=== PATIENT | male | born 1940 | race African-American/Black ===

== ENCOUNTER 2017-01-17 12:51 | Inpatient (IN) | payer MEDICARE ==
[~2017-01-17 12:51] MED LIST: ISOVUE-370 76%-LOCM 1 ML ONE
[2017-01-17] MEDS ORDERED: Enoxaparin Sodium 80 MG/0.8 ML SYRINGE ONE (15:05)
[2017-01-17 15:30] LABS: Troponin I 3.877 ng/mL (< 0.028)
[2017-01-17] MEDS ORDERED: Labetalol HCl 100 MG/20 ML VIAL ONE (16:13)
--- NOTE | 2017-01-17 16:23 | CT ---
CTA OF THE THORAX UTILIZING IV CONTRAST PE PROTOCOL AND 3D REFORMATTED IMAGING 01/17/17 INDICATION: 76-year-old male transferred from [facility] for an elevated troponin at 4.83. The patient was i nitially presented to the outside facility with dizziness with a history of stroke and right sided we akness and dysarthria. COMPARISON: Prior CTA of the thorax dated 09/02/11 and CTA of the abdomen and pelvis dated 04/30/14. FINDINGS: There is scattered emphysema which appears similar. No confluent air space consolidation or pleural effusion is noted. No central or segmental pulmonary embolus is evident. There is some reflux of contrast within the hepatic veins. There is a dual lead pacemaker overlying the left chest wall. There is mural wall thickening involving the distal aortic arch and descending t horacic aorta which is similar in extent and appearance to a comparison on 08/23/11. There is stable bilateral renal cysts. Irregularity of the spleen likely related to prior remote sple jae infarct, similar appearing. There is scattered degenerative and osteoarthritic change. No definit e acute osseous abnormality is evident. IMPRESSION: 1. No central or segmental pulmonary embolus. 2. Wall thickening involving the distal thoracic aorta and descending thoracic aorta was present on a comparison in 2011 and may reflect mural wall thickening from atherosclerotic disease. The jeff ng of the contrast opacification, does not allow for thorough evaluation of the the lumen of the thor acic aorta. 3. Scattered emphysema. 4. Bilateral renal cysts. POS: [facility]
--- NOTE | 2017-01-17 16:49 | HP ---
PRIMARY CARE PHYSICIAN: Dr. Gates in [place]. REASON FOR ADMISSION: Transfer from [facility] for non-ST elevation HI. HISTORY OF PRESENT ILLNESS: A 76-year-old -[place] male who initially went to [facility] for complaint of dizziness, which was going on for the last 2 days. This pa tient is an extremely poor historian. He has previous history of CVA, which resulted in his hearing and speech impairment. He is not able to provide a good history. The patient was also having associ ated shortness of breath and cough. He was feeling weak. He is not complaining of any chest pain, a bdominal pain or complete loss of consciousness, focal motor or sensory symptoms. He did not have an y associated diaphoresis, nausea or vomiting. At this point, the history is also very limited because no family member present at bedside and shelley medrano is not able to provide further details, so most of the history is limited to emergency room record from [place] in our emergency room. REVIEW OF SYSTEMS: All review of systems tried to review with the patient, but unable to review at t his point because of his cognitive status. PAST MEDICAL HISTORY: Chronic congestive heart failure with ejection fraction 45-50%, hypertension, dyslipidemia, ischemic cardiomyopathy, history of ventricular tachycardia required AICD placement, co ronary artery disease with a history of HI in 1978, gastroesophageal reflux disease, history of left cerebrovascular accident with expressive aphasia, paroxysmal atrial fibrillation on chronic anticoagu lation with Xarelto, history of splenic and renal infarction, peripheral vascular disease, history of left lower extremity compartment syndrome required fistulectomy with thrombectomy for gangrene. PAST SURGICAL HISTORY: AICD placement in 2004, cardiac catheterization in 2002, history of prostate TURP surgery in 2004, which showed high grade intraepithelial neoplasm. PAST PSYCHIATRIC HISTORY: Reviewed and negative. SOCIAL HISTORY: Patient lives at home. His sister is caregiver and decision maker. No history of t obacco, alcohol or illicit drug abuse. ALLERGIES: No known drug allergies. FAMILY HISTORY: Positive for cerebrovascular accident to his mother and multiple other family member s, has diabetes, hypertension, and heart disease. CURRENT HOME MEDICATIONS: Coreg 25 mg twice daily, Protonix 40 mg p.o. daily, Zocor 40 mg p.o. twice daily, amlodipine with benazepril 10/20 one tablet p.o. daily, aspirin 81 mg p.o. daily, clonidine 0 .1 mg as needed basis and Xarelto 10 mg p.o. daily. EMERGENCY ROOM COURSE: Patient is given Lovenox 1 mg per kg. PHYSICAL EXAMINATION: VITAL SIGNS: Currently, blood pressure 169/109, pulse 67, respiratory rate 17, temperature 98.1, sat uration 86% on room air and then 94% on 2 liter oxygen. Weight 81.6 kilograms. GENERAL: Patient is currently alert, arousable, follows simple commands. HEAD: Normocephalic, atraumatic. EYES: Pupils round, reactive to light. Extraocular muscles intact. ENT: Oropharynx within normal limits. Moist mucous membranes. No oral lesions. No pharyngeal eryt gerry, no exudate. NECK: Supple, no JVD, no thyromegaly, no carotid bruit. LUNGS: Clear to auscultation without any rhonchi or rales. CARDIAC: S1, S2 irregular. No murmur elicited, no gallop, no rub. ABDOMEN: Soft, bowel sounds present, nontender, nondistended. No organomegaly, no mass, no suprapub ic tenderness. BACK: Unremarkable, no CVA tenderness. EXTREMITIES: Upper extremity: Passive movement of all joints are normal. Lower extremity: Edema p resent in bilateral lower extremities. Distal pulsations are faint. NEUROLOGIC: The patient does have right-sided residual weakness and expressive aphasia, but he is ab le to move all 4 limbs. SKIN: No skin rash. HEMATOLOGICAL SYSTEM: No lymphadenopathy. SIGNIFICANT LABS: EKG showing pacemaker rhythm, ST-T changes in inferolateral lead. Chest x-ray [facility] ed on my review, no acute cardiopulmonary process. Blood test done at [facility] ed by me. Urinalysis is unremarkable. TSH 1.64, troponin I 4.83, GFR 37, CK 90, glucose 97, BUN 24, creatinine 1.73. Sodium 144, potassium 3.5, chloride 108, carbon dioxide 23, calcium 9.5, alkaline phosphatase 109, AST of 18, ALT of 7, alkaline phosphatase 109, albumin 3.9, lipase 18, magnesium 1.8 . BNP 785. Lactic acid 1.2. INR 1.0. WBC 5.6, hemoglobin 15.5, platelet 259. Chest x-ray based o n my review, no acute cardiopulmonary process. ASSESSMENT AND PLAN/IMPRESSION: 1. [id number] elevation myocardial infarction. This patient was presented at [place] with the tanya infante. His oxygen saturation is 86% on room air. He is also having associated shortness of breat h and cough. At this point, I will do CT angio to rule out PE. The patient will need a cardiac eval uation as well. We will treat him with Lovenox 1 mg per kg. I spoke with Dr. Gee and consulted f or non-ST elevation myocardial infarction. This patient is a very poor historian, so it is difficult to determine whether it is cardiac event or anything else. We will monitor on telemetry floor. We will obtain echocardiography to assess ejection fraction and other structural abnormality. Further t reatment will defer to Cardiology. Meanwhile, we will continue with aspirin 81 mg p.o. daily and nit ropatch q.8 hourly. We will check lipid profile tomorrow. We will continue Zocor 40 mg p.o. at bedt khoa. We will continue Coreg 25 mg twice daily and amlodipine with benazepril 10/20 one capsule p.o. daily. 2. Paroxysmal atrial fibrillation on chronic anticoagulation therapy. We will check PT/INR and will continue with Xarelto 10 mg p.o. daily. Patient's rate is under control already at this point. 3. Dyslipidemia. We will check lipid profile tomorrow and continue Zocor 40 mg p.o. at bedtime. 4. Gastroesophageal reflux disease. We will continue Pepcid 20 mg p.o. b.i.d. 5. Hypertension. We will continue Coreg 25 mg p.o. b.i.d. with amlodipine, benazepril 10/20 one cap naomie p.o. daily. 6. Chronic kidney disease stage 3. We will monitor renal function. We will avoid nephrotoxic agent . 7. Chronic systolic heart failure. Currently, the patient appears to be euvolemic. Currently, javi ent has elevated BNP. We will continue with daily input/output chart, fluid intake 1500 mL per day a nd we will continue with Lasix 20 mg IV b.i.d. 8. Coronary artery disease. The patient is already on aspirin and Plavix along with Lovenox and sta tin therapy. 9. Gastrointestinal prophylaxis. Pepcid 20 mg p.o. b.i.d. 10. History of cerebrovascular accident. The patient will need PT, OT while in hospital, cardiac re habilitation. Disposition plan based on clinical course, we are expecting patient's stay in the hospital more than 2 midnights. Plan of care discussed with the patient in detail.
[2017-01-17 17:02] LABS: #Eosinphils 0.2 thou/uL (0.0-0.7); #Lymphocytes 2.3 thou/uL (1.20-3.40); #Monocytes 0.4 thou/uL (0.11-0.59); #Neutrophils 2.4 thou/uL (1.40-6.50); %Basophils 0.8 % (0.0-1.0); %Eosinophils 3.3 % (0.0-10.0); %Lymphocytes 43.1 % (21.0-51.0); Hematocrit 50.1 % (42.0-52.0); Mean Platelet Volume 8.7 fL (7.4-10.4); Red Blood Cell (RBC) Count 5.49 mill/uL (4.70-6.10); White Blood Cell (WBC) Count 5.3 thou/uL (4.8-10.8)
[2017-01-17 17:05] LABS: Prothrombin Time 14.6 SEC (12.0-14.7)
[2017-01-17 17:06] LABS: PTT 40.9 SEC (22.9-36.1)
[2017-01-17 17:21] LABS: ALT (SGPT) 7 U/L (8-55); AST (SGOT) 16 U/L (5-34); Alkaline Phosphatase 104 U/L (40-150); Anion Gap 11 mmol/L (10-20); BUN (Urea Nitrogen) 22 mg/dL (8.4-25.7); Bilirubin, Total 0.6 mg/dL (0.2-1.2); Calc. Creatinine Clearance 0 mL/min (70-130); Calcium 9.8 mg/dL (7.8-10.44); Carbon Dioxide 26 mmol/L (23-31); Chloride 107 mmol/L (98-107); Estimated GFR-MDRD 52; Globulin 3.8 g/dL (2.4-3.5); Protein, Total 7.8 g/dL (5.8-8.1)
[2017-01-17 17:32] LABS: Troponin I 4.501 ng/mL (< 0.028)
[2017-01-17] MEDS ORDERED: Zolpidem Tartrate 5 MG TAB PO PRN (18:13)
[2017-01-17] MEDS ORDERED: HYDROcodone/Acetaminophen 5/325 mg Tablet PO PRN (18:13)
[2017-01-17] MEDS ORDERED: Nitroglycerin 0.4 MG TAB (25 Tab Bottle) SL PRN (18:13)
[2017-01-17] MEDS ORDERED: Milk Of Magnesia 30 ML UDCUP PO PRN (18:13)
[2017-01-17] MEDS ORDERED: Diabetic Tussin 200 MG/10 ML UDCUP PO PRN (18:13)
[2017-01-17] MEDS ORDERED: hydrALAZINE 20 MG/ML VIAL SLOW IVP PRN (18:13)
[2017-01-17] MEDS ORDERED: Senokot 8.6 MG TAB PO PRN (18:13)
[2017-01-17] MEDS ORDERED: Sodium Chloride 0.65% Nasal 44 ML BOT EA NARE PRN (18:13)
[2017-01-17] MEDS ORDERED: Mag-Al 1200 mg/1200 mg/30 ML UDCUP PO PRN (18:13)
[2017-01-17] MEDS ORDERED: Ondansetron ODT 4 MG TAB PO PRN (18:13)
[2017-01-17] MEDS ORDERED: Labetalol HCl 100 MG/20 ML VIAL SLOW IVP PRN (18:13)
[2017-01-17] MEDS ORDERED: Artificial Tears 18 DROP/0.9 ML EA EYE PRN (18:13)
[2017-01-17] MEDS ORDERED: Ondansetron HCl/PF 4 MG/2 ML Vial IVP PRN (18:13)
[2017-01-17] MEDS ORDERED: Loperamide HCl 2 MG CAP PO PRN (18:13)
[2017-01-17] MEDS ORDERED: Loratadine 10 MG TAB PO PRN (18:13)
[2017-01-17] MEDS ORDERED: Chloraseptic Spray 180 ml Bottle PO PRN (18:13)
[2017-01-17] MEDS ORDERED: Eucerin (Mineral Oil/Petrolatum,White) 30 gm Jar TOP PRN (18:13)
[2017-01-17] MEDS ORDERED: Acetaminophen 325 MG TAB PO PRN (18:13)
[2017-01-17] MEDS ORDERED: Carvedilol 6.25 MG TAB PO SCH (18:30)
--- NOTE | 2017-01-17 19:35 | CON ---
DATE OF CONSULTATION: 01/17/2017 REASON FOR CONSULTATION: [id number] myocardial infarction. PRIMARY INTERACTIVE PROJECT MANAGER: Reggie Scott M.D. HISTORY OF PRESENT ILLNESS: Mr. Hernandez is a pleasant 76-year-old -[place] gentleman who comes to the hospital for dizziness. He went to the [facility] in [place] as he was feeling dizzy fo r the last 2 days. He has difficulty with hearing and has dysarthria from previous CVA, but he is ac tually well aware of what is going on. He denies any chest pain, tightness or pressure. He states h is breathing is at baseline. He states that the only reason he came in was dizziness. He is also fe eling weak. His sister is at bedside with him and she tells me she has not been complaining of any c hest pain, tightness, pressure or breathing issues, it was just dizziness that he had. PAST MEDICAL HISTORY: 1. History of nonischemic cardiomyopathy with an EF of 45-50% on last evaluation earlier this year. He has had an AICD placed several years back due to do his nonischemic cardiomyopathy he had heart c atheterization back in 2002 that showed just mild coronary artery disease with an EF of 30%. 2. History of cerebrovascular accident. 3. Paroxysmal atrial fibrillation on chronic anticoagulation. 4. Peripheral vascular disease. PAST SURGICAL HISTORY: 1. AICD placement in 2004. 2. Cardiac catheterization. 3. TURP. 4. Left lower extremity compartment syndrome requiring fistulectomy with thrombectomy for gangrene. SOCIAL HISTORY: No alcohol, tobacco or drugs. FAMILY HISTORY: Noncontributory. OUTPATIENT MEDICATIONS: Include, 1. Coreg 25 mg b.i.d. 2. Protonix 40 mg a day. 3. Zocor 40 mg daily. 4. Amlodipine with benazepril 10/20 a day. 5. Aspirin 81 a day. 6. Clonidine 0.1 mg as needed. 7. Xarelto 10 mg a day. PHYSICAL EXAMINATION: VITAL SIGNS: Temperature 98.1, pulse 67, respiratory rate 17, satting 86% on room air, blood pressur e 169/109. GENERAL: Awake and alert. He is oriented to person, place and difficulty with time, but he has got expressive aphasia, no distress. HEENT: Normocephalic, atraumatic. NECK: Supple. LUNGS: Diminished breath sounds bilaterally. CARDIOVASCULAR: S1, S2. No S3 or S4. No murmurs or rubs. ABDOMEN: Soft, positive bowel sounds. EXTREMITIES: No edema. SKIN: Warm and dry. LABORATORY WORK: Reviewed. CBC is completely unremarkable. Coags were unremarkable. PTT is high. Sodium 140, potassium is 3.7, chloride of 107, carbon dioxide of 26, anion gap of 11, BUN of 22, cre atinine 1.58, GFR of 52, glucose of 76. Calcium, bilirubin, AST and ALT are normal. Alkaline phosph atase is normal. Troponin went from 3.8 to 4.5, albumin of 4.0, globulin of 3.8. CT of the chest with contrast showed no evidence of pulmonary embolism with scattered emphysema, bila teral renal cysts, which are stable. ASSESSMENT AND PLAN: 1. Non-ST elevation myocardial infarction: Unclear source. He has not had any symptoms concerning for an acute coronary artery syndrome except for dizziness. His EKG is atrially paced, ventricularly sensed. He has about 0.[address] elevation with T-wave inversions on anterolateral leads; however, he is completely asymptomatic at that time. We will get an echocardiogram to assess left ventricular f unction and cardiac structures, if we do not find an obvious source of his troponin leak, we will karen n on further risk stratification with heart catheterization later on. We would have to wait for the Xarelto to wear off. I am going to have him hold Xarelto for now. He did get 1 dose of subcutaneous Lovenox earlier today. I would not give him any more subcutaneous Lovenox at this time until Friday night and then I would hold it for possible procedure Friday or Friday. 2. Dizziness: We will interrogate pacemaker. Thank you for letting us participate in the care of patient. We will follow.
[2017-01-17 20:27] VITALS: BMI 21.7
[2017-01-17] MEDS: Atorvastatin Calcium 20 MG TAB PO SCH (20:56)
[2017-01-17] MEDS: Nitroglycerin 2% Ointment 1 INCH/1 GM Packet TOP SCH (20:56)
[2017-01-17] MEDS: Famotidine 20 MG TAB PO SCH (20:56)
[2017-01-17] MEDS ORDERED: FLU VACC TS2017-18 (>65YR) 0.5 ML SYRINGE IM ONE (21:00)
[2017-01-18] MEDS: Nitroglycerin 2% Ointment 1 INCH/1 GM Packet TOP SCH ×3 (05:54→21:47)
[2017-01-18] MEDS: Furosemide 20 MG/2 ML VIAL SLOW IVP SCH ×2 (05:54→13:58)
[2017-01-18 06:17] LABS: Band 1 % (5-11); Hematocrit 47.2 % (42.0-52.0); Mean Platelet Volume 8.7 fL (7.4-10.4); Neutrophil 38 % (42-75); Red Blood Cell (RBC) Count 5.19 mill/uL (4.70-6.10); White Blood Cell (WBC) Count 4.1 thou/uL (4.8-10.8)
[2017-01-18 06:21] LABS: Anion Gap 13 mmol/L (10-20); BUN (Urea Nitrogen) 26 mg/dL (8.4-25.7); Calc. Creatinine Clearance 39 mL/min (70-130); Calcium 9.4 mg/dL (7.8-10.44); Carbon Dioxide 22 mmol/L (23-31); Chloride 109 mmol/L (98-107); Cholesterol 136 mg/dl (< 200 Desired); Estimated GFR-MDRD 54; LDL Cholesterol, Calculated 81 mg/dL
--- NOTE | 2017-01-18 09:09 | PDOC.PN ---
- Subjective Encounter Start Date: 01/18/17 Encounter Start Time: 07:30 -: old records requested/rev pt is hard of hearing, no chest pain, no dizziness, no family bedside Patient seen and examined. No new complaints. No overnight events - Objective Resuscitation Status: Resuscitation Status FULL:Full Resuscitation MAR Reviewed: Yes Vital Signs & Weight: Vital Signs (12 hours) Temp Pulse Resp BP Pulse Ox 01/18/17 08:12 96 01/18/17 07:22 98.7 F 66 18 129/86 99 01/18/17 04:00 97.6 F 66 18 144/86 H 96 01/17/17 23:47 98.7 F 67 20 125/75 97 Weight Weight 152 lb 11.2 oz I&O: 01/17/17 01/18/17 01/19/17 06:59 06:59 06:59 Intake Total 340 Output Total 825 Balance -485 Result Diagrams: 01/18/17 04:50 01/18/17 04:50 EKG Reviewed by me: Yes (pacing) Phys Exam - Physical Examination Constitutional: NAD HEENT: PERRLA, moist MMs, sclera anicteric Neck: no JVD, supple Respiratory: no wheezing, no rales, no rhonchi Cardiovascular: no significant murmur, irregular Gastrointestinal: soft, non-tender, no distention, positive bowel sounds Musculoskeletal: no edema, pulses present Neurological: moves all 4 limbs Lymphatic: no nodes Psychiatric: normal affect Skin: no rash, normal turgor Dx/Plan (1) Dizziness Code(s): R42 - DIZZINESS AND GIDDINESS Status: Acute (2) NSTEMI (non-ST elevated myocardial infarction) Code(s): I21.4 - NON-ST ELEVATION (NSTEMI) MYOCARDIAL INFARCTION Status: Acute (3) Atrial fibrillation Code(s): I48.91 - UNSPECIFIED ATRIAL FIBRILLATION Status: Chronic Qualifiers: Atrial fibrillation type: paroxysmal Qualified Code(s): I48.0 - Paroxysmal atrial fibrillation (4) CKD (chronic kidney disease) stage 3, GFR 30-59 ml/min Code(s): N18.3 - CHRONIC KIDNEY DISEASE, STAGE 3 (MODERATE) Status: Chronic (5) Chronic anticoagulation Code(s): Z79.01 - ASSOCIATE ENTERTAINMENT EDITOR (CURRENT) USE OF ANTICOAGULANTS Status: Chronic (6) Chronic systolic heart failure Code(s): I50.22 - CHRONIC SYSTOLIC (CONGESTIVE) HEART FAILURE Status: Chronic (7) Dyslipidemia Code(s): E78.5 - HYPERLIPIDEMIA, UNSPECIFIED Status: Chronic (8) GERD (gastroesophageal reflux disease) Code(s): K21.9 - GASTRO-ESOPHAGEAL REFLUX DISEASE WITHOUT ESOPHAGITIS Status: Chronic (9) History of CVA (cerebrovascular accident) Code(s): Z86.73 - PRSNL HX OF TIA (TIA), AND CEREB INFRC W/O RESID DEFICITS Status: Chronic (10) History of cardiomyopathy Code(s): Z86.79 - PERSONAL HISTORY OF OTHER DISEASES OF THE CIRCULATORY SYSTEM Status: Chronic (11) Hypertension Code(s): I10 - ESSENTIAL (PRIMARY) HYPERTENSION Status: Chronic (12) PVD (peripheral vascular disease) Code(s): I73.9 - PERIPHERAL VASCULAR DISEASE, UNSPECIFIED Status: Chronic (13) Protein-calorie malnutrition, mild Code(s): E44.1 - MILD PROTEIN-CALORIE MALNUTRITION Status: Chronic - Plan cont current plan of care * Cardiology following * CT angio negative for PE * today AICD interrogation * Today Echo * Xarelto on hold and may need cardiac cath on Friday * medication reviewed as below * symptomatic treatment. * cardiac rehab Review of Systems - Review of Systems Other: not reliable due to pt is very hard of hearing - Medications/Allergies Allergies/Adverse Reactions: Allergies Allergy/AdvReac Type Severity Reaction Status Date / Time No Known Allergies Allergy Verified 11/08/15 19:03 Medications: Current Medications Acetaminophen (Tylenol) 650 mg PO Q4H PRN PRN Reason: Headache/Fever or Pain Hydrocodone Bitart/Acetaminophen ([place] 5/325) 1 tab PO Q4H PRN PRN Reason: Moderate Pain (4-6) Al Hydroxide/Mg Hydroxide (Maalox) 30 ml PO Q6H PRN PRN Reason: Heartburn or Indigestion Amlodipine/Benazepril HCl (Lotrel 5/10) 2 cap PO DAILY [facility] Artificial Tears (Tears Naturale) 0 drop EA EYE PRN PRN PRN Reason: Dry Eyes Aspirin (Aspirin Chewable) 81 mg PO DAILY [facility] Atorvastatin Calcium (Lipitor) 20 mg PO HS [facility] Last Admin: 01/17/17 20:56 Dose: 20 mg Carvedilol (Coreg) 12.5 mg PO BID-[facility] Clopidogrel Bisulfate (Plavix) 75 mg PO QAM [facility] Famotidine (Pepcid) 20 mg PO Q24HR [facility] Last Admin: 01/17/17 20:56 Dose: 20 mg Furosemide (Lasix) 20 mg SLOW IVP 0600,1400 [facility] Last Admin: 01/18/17 05:54 Dose: 20 mg Guaifenesin (Robitussin Sf) 200 mg PO Q4H PRN PRN Reason: Cough Hydralazine HCl (Apresoline) 10 mg SLOW IVP Q4H PRN PRN Reason: Systolic BP > 180 Labetalol HCl (Normodyne) 20 mg SLOW IVP Q4H PRN PRN Reason: Systolic BP > 180 Loperamide HCl (Imodium) 2 mg PO PRN PRN PRN Reason: Diarrhea/Loose Stools Loratadine (Claritin) 10 mg PO DAILYPRN PRN PRN Reason: Sinus Symptoms Magnesium Hydroxide (Milk Of Magnesium) 30 ml PO DAILYPRN PRN PRN Reason: Constipation Mineral Oil/White Petrolatum (Eucerin Cream) 0 gm TOP BIDPRN PRN PRN Reason: Dry Skin Nitroglycerin (Nitrostat) 0.4 mg SL Q5MIN PRN PRN Reason: Chest Pain Nitroglycerin (Nitro-Bid 2% Ointment) 0.5 inch TOP Q8HR [facility] Last Admin: 01/18/17 05:54 Dose: 0.5 inch Ondansetron HCl (Zofran Odt) 4 mg PO Q6H PRN PRN Reason: Nausea/Vomiting Ondansetron HCl (Zofran) 4 mg IVP Q6H PRN PRN Reason: Nausea/Vomiting Phenol (Chloraseptic [place] 180 Ml Bot) 0 ml PO PRN PRN PRN Reason: Sore Throat Senna (Senokot) 2 tab PO HSPRN PRN PRN Reason: Constipation Sodium Chloride ([place] Nasal [place] 0.65%) 0 ml EA NARE QIDPRN PRN PRN Reason: Nasal Congestion Zolpidem Tartrate (Ambien) 5 mg PO HSPRN PRN PRN Reason: Insomnia
[2017-01-18] MEDS: Clopidogrel Bisulfate 75 MG TAB PO SCH (10:03)
[2017-01-18] MEDS: Carvedilol 6.25 MG TAB PO SCH ×2 (10:03→18:21)
[2017-01-18] MEDS: Amlodipine 5 mg/Benazepril 10 mg CAP PO SCH (10:03)
[2017-01-18] MEDS ORDERED: Enoxaparin Sodium 80 MG/0.8 ML SYRINGE SC SCH ×2 (13:30→23:00)
--- NOTE | 2017-01-18 14:37 | PDOC.CTH ---
Cardiology Progress Note - Subjective He denies any chest pain, tightness, pressure, SOB. - Objective Vital Signs Temp Pulse Resp BP BP Pulse Ox 01/18/17 12:03 97.6 F 71 20 125/72 97 01/18/17 10:03 129/86 01/18/17 08:12 96 01/18/17 07:22 98.7 F 66 18 129/86 99 01/18/17 04:00 97.6 F 66 18 144/86 H 96 Weight 152 lb 11.2 oz 01/17/17 01/18/17 01/19/17 06:59 06:59 06:59 Intake Total 340 Output Total 825 Balance -485 - Physical Examination General/Neuro: NAD Neck: no JVD present Lungs: CTA, unlabored respirations Heart: RRR Abdomen: NT/ND Extremities: other: (no edema.) - Telemetry Telemetry Rhythm: NSR - Labs Result Diagrams: 01/18/17 04:50 01/18/17 04:50 Troponin/CKMB Troponin I 4.160 ng/mL (< 0.028) H* 01/17/17 19:46 - Assessment/Plan 1. NSTEMI 2. Non ischemic CM 3. Apical thrombus, seems old as it has started to laminate 4. Hx of CVA 5. Paroxysmal Afib 6. Chronic anticoagulation with Xarelto 7. Presence of an AICD PLAN: - Will continue full anticoagulation with Lovenox and hold xarelto for now, will give one dose now as he is high risk for embolization. - May need a LHC but he is asymptomatic and LV function is minimally changed. If he had an anterior NV and has apical dyskinesis with a thrombus this is old and is not the acute issue. - Will need CT/MRI of brain to asses for possible new CVA in the setting of an LV thrombus and dizziness. - Non sustained VT (4 beats on interr) - Non sustained SVT (4 secs on interr) on coreg.
[2017-01-18] MEDS: Famotidine 20 MG TAB PO SCH (21:45)
[2017-01-18] MEDS: Potassium Chloride 10 MEQ TAB PO SCH (21:45)
[2017-01-18] MEDS: Atorvastatin Calcium 20 MG TAB PO SCH (21:45)
[2017-01-18] MEDS: Enoxaparin Sodium 80 MG/0.8 ML SYRINGE SC SCH (21:48)
[2017-01-19 05:32] LABS: Anion Gap 10 mmol/L (10-20); BUN (Urea Nitrogen) 25 mg/dL (8.4-25.7); Calc. Creatinine Clearance 36 mL/min (70-130); Calcium 9.1 mg/dL (7.8-10.44); Carbon Dioxide 24 mmol/L (23-31); Chloride 106 mmol/L (98-107); Estimated GFR-MDRD 49
[2017-01-19 05:39] LABS: #Basophils 0.1 thou/uL (0.0-0.2); #Eosinphils 0.2 thou/uL (0.0-0.7); #Lymphocytes 2.3 thou/uL (1.20-3.40); #Monocytes 0.6 thou/uL (0.11-0.59); #Neutrophils 1.5 thou/uL (1.40-6.50); %Eosinophils 4.5 % (0.0-10.0); %Lymphocytes 49.5 % (21.0-51.0); %Monocytes 13.1 % (0.0-10.0); Hematocrit 46.9 % (42.0-52.0); Mean Platelet Volume 8.7 fL (7.4-10.4); Red Blood Cell (RBC) Count 5.15 mill/uL (4.70-6.10); White Blood Cell (WBC) Count 4.7 thou/uL (4.8-10.8)
[2017-01-19] MEDS: Nitroglycerin 2% Ointment 1 INCH/1 GM Packet TOP SCH ×3 (06:04→20:39)
--- NOTE | 2017-01-19 08:02 | PDOC.PN ---
- Subjective Encounter Start Date: 01/19/17 Encounter Start Time: 07:50 Patient seen and examined. No new complaints. No overnight events - Objective Resuscitation Status: Resuscitation Status FULL:Full Resuscitation MAR Reviewed: Yes Vital Signs & Weight: Vital Signs (12 hours) Temp Pulse Resp BP Pulse Ox 01/19/17 04:00 98.2 F 68 18 106/61 99 Weight Weight 150 lb 8 oz I&O: 01/18/17 01/19/17 01/20/17 06:59 06:59 06:59 Intake Total 340 1178 Output Total 825 2050 Balance -485 -872 Result Diagrams: 01/19/17 05:02 01/19/17 05:02 EKG Reviewed by me: Yes (nsr) Phys Exam - Physical Examination Constitutional: NAD HEENT: PERRLA, moist MMs, sclera anicteric Neck: no JVD, supple Respiratory: no wheezing, no rales, no rhonchi Cardiovascular: RRR, no significant murmur, no rub Gastrointestinal: soft, non-tender, no distention, positive bowel sounds Musculoskeletal: no edema, pulses present Neurological: non-focal, normal sensation Lymphatic: no nodes Psychiatric: normal affect Skin: no rash, normal turgor Dx/Plan (1) Dizziness Code(s): R42 - DIZZINESS AND GIDDINESS Status: Acute (2) NSTEMI (non-ST elevated myocardial infarction) Code(s): I21.4 - NON-ST ELEVATION (NSTEMI) MYOCARDIAL INFARCTION Status: Acute (3) Atrial fibrillation Code(s): I48.91 - UNSPECIFIED ATRIAL FIBRILLATION Status: Chronic Qualifiers: Atrial fibrillation type: paroxysmal Qualified Code(s): I48.0 - Paroxysmal atrial fibrillation (4) CKD (chronic kidney disease) stage 3, GFR 30-59 ml/min Code(s): N18.3 - CHRONIC KIDNEY DISEASE, STAGE 3 (MODERATE) Status: Chronic (5) Chronic anticoagulation Code(s): Z79.01 - PROGRAM ELIGIBILITY SPECIALIST (CURRENT) USE OF ANTICOAGULANTS Status: Chronic (6) Chronic systolic heart failure Code(s): I50.22 - CHRONIC SYSTOLIC (CONGESTIVE) HEART FAILURE Status: Chronic (7) Dyslipidemia Code(s): E78.5 - HYPERLIPIDEMIA, UNSPECIFIED Status: Chronic (8) GERD (gastroesophageal reflux disease) Code(s): K21.9 - GASTRO-ESOPHAGEAL REFLUX DISEASE WITHOUT ESOPHAGITIS Status: Chronic (9) History of CVA (cerebrovascular accident) Code(s): Z86.73 - PRSNL HX OF TIA (TIA), AND CEREB INFRC W/O RESID DEFICITS Status: Chronic (10) History of cardiomyopathy Code(s): Z86.79 - PERSONAL HISTORY OF OTHER DISEASES OF THE CIRCULATORY SYSTEM Status: Chronic (11) Hypertension Code(s): I10 - ESSENTIAL (PRIMARY) HYPERTENSION Status: Chronic (12) PVD (peripheral vascular disease) Code(s): I73.9 - PERIPHERAL VASCULAR DISEASE, UNSPECIFIED Status: Chronic (13) Protein-calorie malnutrition, mild Code(s): E44.1 - MILD PROTEIN-CALORIE MALNUTRITION Status: Chronic - Plan cont current plan of care * DC IV lasix * change to PO lasix * repeat labs tomorrow * continue lovenox * cardiology following * possible cardiac cath tomorrow * will adjust meds today. * continue cardiac rehab Review of Systems - Review of Systems ENT: negative: Ear Pain, Ear Discharge, Nose Pain, Nose Discharge, Nose Congestion, Mouth Pain, Mouth Swelling, Throat Pain, Throat Swelling, Other Respiratory: negative: Cough, Dry, Shortness of Breath, Hemoptysis, SOB with Excertion, Pleuritic Pain, Sputum, Wheezing Cardiovascular: negative: Chest Pain, Palpitations, Orthopnea, Paroxysmal Noc. Dyspnea, Edema, Light Headedness, Other Gastrointestinal: negative: Nausea, Vomiting, Abdominal Pain, Diarrhea, Constipation, Melena, Hematochezia, Other Genitourinary: negative: Dysuria, Frequency, Incontinence, Hematuria, Retention , Other Musculoskeletal: negative: Neck Pain, Shoulder Pain, Arm Pain, Back Pain, Hand Pain, Leg Pain, Foot Pain, Other Skin: negative: Rash, Lesions, [place], Bruising, Other Other: not reliable due to deafness - Medications/Allergies Allergies/Adverse Reactions: Allergies Allergy/AdvReac Type Severity Reaction Status Date / Time No Known Allergies Allergy Verified 11/08/15 19:03 Medications: Current Medications Acetaminophen (Tylenol) 650 mg PO Q4H PRN PRN Reason: Headache/Fever or Pain Hydrocodone Bitart/Acetaminophen ([place] 5/325) 1 tab PO Q4H PRN PRN Reason: Moderate Pain (4-6) Al Hydroxide/Mg Hydroxide (Maalox) 30 ml PO Q6H PRN PRN Reason: Heartburn or Indigestion Allopurinol (Zyloprim) 100 mg PO DAILY [facility] Amlodipine/Benazepril HCl (Lotrel 5/10) 2 cap PO DAILY [facility] Last Admin: 01/18/17 10:03 Dose: 2 cap Artificial Tears (Tears Naturale) 0 drop EA EYE PRN PRN PRN Reason: Dry Eyes Aspirin (Aspirin Chewable) 81 mg PO DAILY [facility] Last Admin: 01/18/17 10:03 Dose: 81 mg Atorvastatin Calcium (Lipitor) 20 mg PO HS [facility] Last Admin: 01/18/17 21:45 Dose: 20 mg Carvedilol (Coreg) 12.5 mg PO BID-WM [facility] Last Admin: 01/18/17 18:21 Dose: 12.5 mg Clopidogrel Bisulfate (Plavix) 75 mg PO QAM [facility] Last Admin: 01/18/17 10:03 Dose: 75 mg Enoxaparin Sodium (Lovenox) 70 mg SC 0900,2100 [facility] Last Admin: 01/18/17 21:48 Dose: 70 mg Famotidine (Pepcid) 20 mg PO Q24HR [facility] Last Admin: 01/18/17 21:45 Dose: 20 mg Furosemide (Lasix) 20 mg PO DAILY [facility] Guaifenesin (Robitussin Sf) 200 mg PO Q4H PRN PRN Reason: Cough Hydralazine HCl (Apresoline) 10 mg SLOW IVP Q4H PRN PRN Reason: Systolic BP > 180 Labetalol HCl (Normodyne) 20 mg SLOW IVP Q4H PRN PRN Reason: Systolic BP > 180 Lisinopril (Zestril) 10 mg PO DAILY [facility] Loperamide HCl (Imodium) 2 mg PO PRN PRN PRN Reason: Diarrhea/Loose Stools Loratadine (Claritin) 10 mg PO DAILYPRN PRN PRN Reason: Sinus Symptoms Magnesium Hydroxide (Milk Of Magnesium) 30 ml PO DAILYPRN PRN PRN Reason: Constipation Mineral Oil/White Petrolatum (Eucerin Cream) 0 gm TOP BIDPRN PRN PRN Reason: Dry Skin Nitroglycerin (Nitrostat) 0.4 mg SL Q5MIN PRN PRN Reason: Chest Pain Nitroglycerin (Nitro-Bid 2% Ointment) 0.5 inch TOP Q8HR [facility] Last Admin: 01/19/17 06:04 Dose: 0.5 inch Ondansetron HCl (Zofran Odt) 4 mg PO Q6H PRN PRN Reason: Nausea/Vomiting Ondansetron HCl (Zofran) 4 mg IVP Q6H PRN PRN Reason: Nausea/Vomiting Phenol (Chloraseptic [place] 180 Ml Bot) 0 ml PO PRN PRN PRN Reason: Sore Throat Potassium Chloride (Klor-Con 10) 10 meq PO BID [facility] Last Admin: 01/18/17 21:45 Dose: 10 meq Senna (Senokot) 2 tab PO HSPRN PRN PRN Reason: Constipation Sodium Chloride ([place] Nasal [place] 0.65%) 0 ml EA NARE QIDPRN PRN PRN Reason: Nasal Congestion Zolpidem Tartrate (Ambien) 5 mg PO HSPRN PRN PRN Reason: Insomnia
[2017-01-19] MEDS: Amlodipine 5 mg/Benazepril 10 mg CAP PO SCH (08:40)
[2017-01-19] MEDS: Carvedilol 6.25 MG TAB PO SCH ×2 (08:40→17:09)
[2017-01-19] MEDS: Furosemide 20 MG TAB PO SCH (08:41)
[2017-01-19] MEDS: Clopidogrel Bisulfate 75 MG TAB PO SCH (08:41)
[2017-01-19] MEDS: Lisinopril 10 MG TAB PO SCH (08:41)
[2017-01-19] MEDS: Potassium Chloride 10 MEQ TAB PO SCH ×2 (08:41→20:37)
[2017-01-19] MEDS: Allopurinol 100 MG TAB PO SCH (08:41)
--- NOTE | 2017-01-19 15:01 | PDOC.CTH ---
Cardiology Progress Note - Subjective No new issues. He continues to deny any chest pain, tightness ,pressure, SOB. - Objective Vital Signs Temp Pulse Pulse Pulse Resp BP BP 01/19/17 11:45 98.0 F 62 16 01/19/17 10:59 61 92 128/70 01/19/17 08:41 123/68 01/19/17 08:40 123/68 01/19/17 07:25 97.4 F L 80 16 01/19/17 04:00 98.2 F 68 18 BP BP Pulse Ox Pulse Ox Pulse Ox 01/19/17 11:45 128/66 93 L 01/19/17 10:59 148/84 H 94 L 93 L 01/19/17 08:41 01/19/17 08:40 01/19/17 07:25 128/79 94 L 01/19/17 04:00 106/61 99 Weight 150 lb 8 oz 01/18/17 01/19/17 01/20/17 06:59 06:59 06:59 Intake Total 340 1178 Output Total 825 2050 Balance -485 -872 - Physical Examination General/Neuro: NAD Neck: no JVD present Lungs: CTA, unlabored respirations Heart: RRR Abdomen: NT/ND Extremities: other: (no edema) - Telemetry Telemetry Rhythm: NSR - Labs Result Diagrams: 01/19/17 05:02 01/19/17 05:02 Troponin/CKMB Troponin I 4.160 ng/mL (< 0.028) H* 01/17/17 19:46 - Assessment/Plan 1. NSTEMI 2. Non ischemic CM 3. Apical thrombus, seems old as it has started to laminate 4. Hx of CVA 5. Paroxysmal Afib 6. Chronic anticoagulation with Xarelto 7. Presence of an AICD PLAN: - Will continue full anticoagulation with Lovenox and hold xarelto for now, high risk for embolization. - May need a LHC but he is asymptomatic and LV function is minimally changed. If he had an anterior ME and has apical dyskinesis with a thrombus this is old and is not the acute issue. - Will need CT/MRI of brain to asses for possible new CVA in the setting of an LV thrombus and dizziness. - Non sustained VT (4 beats on interr) - Non sustained SVT (4 secs on interr) on coreg.
[2017-01-19] MEDS: Atorvastatin Calcium 20 MG TAB PO SCH (20:37)
[2017-01-19] MEDS: Famotidine 20 MG TAB PO SCH (20:38)
[2017-01-19] MEDS: Enoxaparin Sodium 80 MG/0.8 ML SYRINGE SC SCH (20:39)
[2017-01-20] MEDS: Nitroglycerin 2% Ointment 1 INCH/1 GM Packet TOP SCH (05:20)
[2017-01-20 06:13] LABS: Anion Gap 12 mmol/L (10-20); BUN (Urea Nitrogen) 22 mg/dL (8.4-25.7); Calc. Creatinine Clearance 36 mL/min (70-130); Calcium 9.3 mg/dL (7.8-10.44); Carbon Dioxide 24 mmol/L (23-31); Chloride 107 mmol/L (98-107); Estimated GFR-MDRD 50
[2017-01-20 07:09] LABS: Mean Platelet Volume 8.5 fL (7.4-10.4); Red Blood Cell (RBC) Count 5.12 mill/uL (4.70-6.10); White Blood Cell (WBC) Count 5.9 thou/uL (4.8-10.8)
[2017-01-20] MEDS: Carvedilol 6.25 MG TAB PO SCH ×2 (08:41→16:14)
[2017-01-20] MEDS: Amlodipine 5 mg/Benazepril 10 mg CAP PO SCH (08:41)
[2017-01-20] MEDS: Enoxaparin Sodium 80 MG/0.8 ML SYRINGE SC SCH ×2 (08:41→20:25)
[2017-01-20] MEDS: Lisinopril 10 MG TAB PO SCH (08:42)
[2017-01-20] MEDS: Clopidogrel Bisulfate 75 MG TAB PO SCH (08:42)
[2017-01-20] MEDS: Potassium Chloride 10 MEQ TAB PO SCH ×2 (08:42→20:25)
[2017-01-20] MEDS: Allopurinol 100 MG TAB PO SCH (08:42)
[2017-01-20] MEDS: Furosemide 20 MG TAB PO SCH (08:42)
[2017-01-20] MEDS ORDERED: Communication Order-Pharmacy FS SCH (08:45)
--- NOTE | 2017-01-20 08:58 | PRG ---
DATE OF SERVICE: 01/20/2017 SUBJECTIVE: Mr. Hernandez is doing okay. No chest pain or pressure. PHYSICAL EXAMINATION: VITAL SIGNS: Blood pressure 122/77, pulse 62, it is regular. LUNGS: Clear. CARDIAC: Normal S1 and S2. ASSESSMENT: 1. Status post non-ST elevation infarction. 2. History of nonischemic cardiomyopathy. 3. Left ventricular thrombus. 4. Previous stroke. 5. Previous embolic events. PLAN: Proceed to cardiac catheterization tomorrow. I discussed risks of stroke, heart attack, iodin e allergy, interfering of blood supply to the leg or kidney. The patient understands and wishes to p roceed. He has expressive aphasia, but seems to understand the situation. There is some mention of an MRI to be done, but with the defibrillator I do not think that is going t o be feasible.
[2017-01-20 09:05] LABS: Neutrophil 33 % (42-75); Reactive Lymphocytes 4 % (0-10); Target Cells MODERATE= 6-15 cells (100X) (0-1/hpf)
--- NOTE | 2017-01-20 11:22 | CT ---
CT HEAD WITHOUT CONTRAST: Multiple axial tomograms obtained through the head without IV enhancement. HISTORY: Dizziness. COMPARISON: Comparison is made to prior head CT of 03/03/14. FINDINGS: A large area of encephalomalacia involving the left cerebral hemisphere with surrounding gliosis appe ars stable. There is a new area of encephalomalacia involving the right superior parietal lobe when compared to t he prior study. This appears to represent a remote cortical infarct. No hemorrhage. No edema. No evidence of acute infarct identified. IMPRESSION: 1. Evidence of old large remote infarct involving the left cerebral hemisphere in the distribution o f the left middle cerebral artery which appears stable. 2. New area of encephalomalacia since the prior study involving the right parietal lobe cortex which suggests old infarct. 3. No acute cortical infarct or hemorrhage identified. POS: JANICE
--- NOTE | 2017-01-20 12:48 | PDOC.PN ---
- Subjective Encounter Start Date: 01/20/17 Encounter Start Time: 08:00 Patient seen and examined. No new complaints. No overnight events - Objective Resuscitation Status: Resuscitation Status FULL:Full Resuscitation MAR Reviewed: Yes Vital Signs & Weight: Vital Signs (12 hours) Temp Pulse Pulse Pulse Resp BP BP 01/20/17 11:36 98.4 F 60 14 01/20/17 10:47 88 74 160/82 H 01/20/17 08:42 122/77 01/20/17 08:41 122/77 01/20/17 08:00 98 F 62 16 01/20/17 07:48 98 F 62 16 01/20/17 04:00 98.0 F 73 16 BP BP Pulse Ox Pulse Ox Pulse Ox 01/20/17 11:36 131/63 92 L 01/20/17 10:47 137/81 95 96 01/20/17 08:42 01/20/17 08:41 01/20/17 08:00 95 01/20/17 07:48 122/77 95 01/20/17 04:00 99/59 L 96 Weight Weight 150 lb 9.6 oz I&O: 01/19/17 01/20/17 01/21/17 06:59 06:59 06:59 Intake Total 1178 1440 Output Total 2050 Balance -872 1440 Result Diagrams: 01/20/17 05:36 01/20/17 05:36 Radiology Reviewed by me: Yes (CT brain) EKG Reviewed by me: Yes (NSR) Phys Exam - Physical Examination Constitutional: NAD HEENT: PERRLA, moist MMs, sclera anicteric Neck: no JVD, supple Respiratory: no wheezing, no rales, no rhonchi Cardiovascular: RRR, no significant murmur, no rub Gastrointestinal: soft, non-tender, no distention, positive bowel sounds Musculoskeletal: no edema, pulses present Neurological: non-focal, normal sensation Lymphatic: no nodes Psychiatric: normal affect, A&O x 3 Skin: no rash, normal turgor Dx/Plan (1) Dizziness Code(s): R42 - DIZZINESS AND GIDDINESS Status: Acute (2) NSTEMI (non-ST elevated myocardial infarction) Code(s): I21.4 - NON-ST ELEVATION (NSTEMI) MYOCARDIAL INFARCTION Status: Acute (3) Atrial fibrillation Code(s): I48.91 - UNSPECIFIED ATRIAL FIBRILLATION Status: Chronic Qualifiers: Atrial fibrillation type: paroxysmal Qualified Code(s): I48.0 - Paroxysmal atrial fibrillation (4) CKD (chronic kidney disease) stage 3, GFR 30-59 ml/min Code(s): N18.3 - CHRONIC KIDNEY DISEASE, STAGE 3 (MODERATE) Status: Chronic (5) Chronic anticoagulation Code(s): Z79.01 - SKILLED NURSING (CURRENT) USE OF ANTICOAGULANTS Status: Chronic (6) Chronic systolic heart failure Code(s): I50.22 - CHRONIC SYSTOLIC (CONGESTIVE) HEART FAILURE Status: Chronic (7) Dyslipidemia Code(s): E78.5 - HYPERLIPIDEMIA, UNSPECIFIED Status: Chronic (8) GERD (gastroesophageal reflux disease) Code(s): K21.9 - GASTRO-ESOPHAGEAL REFLUX DISEASE WITHOUT ESOPHAGITIS Status: Chronic (9) History of CVA (cerebrovascular accident) Code(s): Z86.73 - PRSNL HX OF TIA (TIA), AND CEREB INFRC W/O RESID DEFICITS Status: Chronic (10) History of cardiomyopathy Code(s): Z86.79 - PERSONAL HISTORY OF OTHER DISEASES OF THE CIRCULATORY SYSTEM Status: Chronic (11) Hypertension Code(s): I10 - ESSENTIAL (PRIMARY) HYPERTENSION Status: Chronic (12) PVD (peripheral vascular disease) Code(s): I73.9 - PERIPHERAL VASCULAR DISEASE, UNSPECIFIED Status: Chronic (13) Protein-calorie malnutrition, mild Code(s): E44.1 - MILD PROTEIN-CALORIE MALNUTRITION Status: Chronic - Plan cont current plan of care * medication reviewed as below * symptomatic treatment * CT brain is negative for acute CVA * plan for cardiac cath tomorrow * medically stable. Review of Systems - Review of Systems ENT: negative: Ear Pain, Ear Discharge, Nose Pain, Nose Discharge, Nose Congestion, Mouth Pain, Mouth Swelling, Throat Pain, Throat Swelling, Other Respiratory: negative: Cough, Dry, Shortness of Breath, Hemoptysis, SOB with Excertion, Pleuritic Pain, Sputum, Wheezing Cardiovascular: negative: Chest Pain, Palpitations, Orthopnea, Paroxysmal Noc. Dyspnea, Edema, Light Headedness, Other Gastrointestinal: negative: Nausea, Vomiting, Abdominal Pain, Diarrhea, Constipation, Melena, Hematochezia, Other Genitourinary: negative: Dysuria, Frequency, Incontinence, Hematuria, Retention , Other Musculoskeletal: negative: Neck Pain, Shoulder Pain, Arm Pain, Back Pain, Hand Pain, Leg Pain, Foot Pain, Other - Medications/Allergies Allergies/Adverse Reactions: Allergies Allergy/AdvReac Type Severity Reaction Status Date / Time No Known Allergies Allergy Verified 11/08/15 19:03 Medications: Current Medications Acetaminophen (Tylenol) 650 mg PO Q4H PRN PRN Reason: Headache/Fever or Pain Hydrocodone Bitart/Acetaminophen ([place] 5/325) 1 tab PO Q4H PRN PRN Reason: Moderate Pain (4-6) Al Hydroxide/Mg Hydroxide (Maalox) 30 ml PO Q6H PRN PRN Reason: Heartburn or Indigestion Allopurinol (Zyloprim) 100 mg PO DAILY [facility] Last Admin: 01/20/17 08:42 Dose: 100 mg Amlodipine/Benazepril HCl (Lotrel 5/10) 2 cap PO DAILY [facility] Last Admin: 01/20/17 08:41 Dose: 2 cap Artificial Tears (Tears Naturale) 0 drop EA EYE PRN PRN PRN Reason: Dry Eyes Aspirin (Aspirin Chewable) 81 mg PO DAILY [facility] Last Admin: 01/20/17 08:42 Dose: 81 mg Atorvastatin Calcium (Lipitor) 20 mg PO HS [facility] Last Admin: 01/19/17 20:37 Dose: 20 mg Carvedilol (Coreg) 12.5 mg PO BID-WM [facility] Last Admin: 01/20/17 08:41 Dose: 12.5 mg Clopidogrel Bisulfate (Plavix) 75 mg PO QAM [facility] Last Admin: 01/20/17 08:42 Dose: 75 mg Enoxaparin Sodium (Lovenox) 70 mg SC 0900,2100 [facility] Last Admin: 01/20/17 08:41 Dose: 70 mg Famotidine (Pepcid) 20 mg PO Q24HR [facility] Last Admin: 01/19/17 20:38 Dose: 20 mg Furosemide (Lasix) 20 mg PO DAILY [facility] Last Admin: 01/20/17 08:42 Dose: 20 mg Guaifenesin (Robitussin Sf) 200 mg PO Q4H PRN PRN Reason: Cough Hydralazine HCl (Apresoline) 10 mg SLOW IVP Q4H PRN PRN Reason: Systolic BP > 180 Sodium Chloride (Normal Saline 0.9%) 1,000 mls @ 100 mls/hr IV .Q10H [facility] Labetalol HCl (Normodyne) 20 mg SLOW IVP Q4H PRN PRN Reason: Systolic BP > 180 Lisinopril (Zestril) 10 mg PO DAILY [facility] Last Admin: 01/20/17 08:42 Dose: 10 mg Loperamide HCl (Imodium) 2 mg PO PRN PRN PRN Reason: Diarrhea/Loose Stools Loratadine (Claritin) 10 mg PO DAILYPRN PRN PRN Reason: Sinus Symptoms Magnesium Hydroxide (Milk Of Magnesium) 30 ml PO DAILYPRN PRN PRN Reason: Constipation Mineral Oil/White Petrolatum (Eucerin Cream) 0 gm TOP BIDPRN PRN PRN Reason: Dry Skin Miscellaneous Information (Communication Order-Pharmacy) 0 each FS ONE [facility] Stop: 01/21/17 12:00 Nitroglycerin (Nitrostat) 0.4 mg SL Q5MIN PRN PRN Reason: Chest Pain Ondansetron HCl (Zofran Odt) 4 mg PO Q6H PRN PRN Reason: Nausea/Vomiting Ondansetron HCl (Zofran) 4 mg IVP Q6H PRN PRN Reason: Nausea/Vomiting Phenol (Chloraseptic [place] 180 Ml Bot) 0 ml PO PRN PRN PRN Reason: Sore Throat Potassium Chloride (Klor-Con 10) 10 meq PO BID [facility] Last Admin: 01/20/17 08:42 Dose: 10 meq Senna (Senokot) 2 tab PO HSPRN PRN PRN Reason: Constipation Sodium Chloride ([place] Nasal [place] 0.65%) 0 ml EA NARE QIDPRN PRN PRN Reason: Nasal Congestion Zolpidem Tartrate (Ambien) 5 mg PO HSPRN PRN PRN Reason: Insomnia
--- NOTE | 2017-01-20 13:13 | PQF ---
CLINICAL DOCUMENTATION IMPROVEMENT CLARIFICATION FORM: ICD-10 Updated PLEASE DO AN ADDENDUM TO THE PROGRESS NOTE WITH ANY DOCUMENTATION UPDATES OR ADDITIONS AND CARRY THROUGH TO DC SUMMARY. THANK YOU. DATE: 01/20/17 ATTN: Dr. Maldonado Please exercise your independent, professional judgment in responding to the clarification form. Clinical indicators are provided on the bottom of this form for your review Please check appropriate box(s): [ X ] Acute Respiratory Failure: [ X ] with Hypoxia [ ] with Hypercapnia [ ] Acute On Chronic Respiratory Failure: [ ] with Hypoxia [ ] with Hypercapnia [ ] Acute Respiratory Failure due to: (etiology) [ ] Chronic Respiratory Failure only [ ] with Hypoxia [ ] with Hypercapnia [ ] Other diagnosis [ ] Unable to determine In addition, please specify: Present on Admission (POA): [ X ] Yes [ ] No [ ] Unable to determine For continuity of documentation, please document condition throughout progress notes and discharge summary. Thank You. CLINICAL INDICATORS - SIGNS / SYMPTOMS / LABS ER RECORD: O2 SAT 86 ON ROOM AIR. H&P: SATURATION 86% ON ROOM AIR & THEN 94% ON 2 LITER OXYGEN RISKS: H&P: [id number] ELEVATION [place]. PAROXYSMAL ATRIAL FIBRILLATION; CKD 3, CHRONIC SYSTOLIC HEART FAILURE. HX OF CVA. TREATMENT: CPOE 128: RESP: O2 TO KEEP SATS 92% CPOE 12/8: LASIX 20 MG IV 0600, 1400. DC'D 01/19/17 THANK YOU, POLINA (This form is maintained as a part of the permanent medical record) 2015 [employer] All Rights Reserved Polina Marie RN, BSN [email or web address] Office: [phone] [facility]
[2017-01-20] MEDS: Atorvastatin Calcium 20 MG TAB PO SCH (20:24)
[2017-01-20] MEDS: Famotidine 20 MG TAB PO SCH (20:25)
[2017-01-21] MEDS: Sodium Chloride 0.9% 1,000 ML IV SCH ×2 (06:00→15:19)
[2017-01-21] MEDS: Carvedilol 6.25 MG TAB PO SCH ×2 (06:01→16:23)
[2017-01-21] MEDS: Allopurinol 100 MG TAB PO SCH (06:02)
[2017-01-21] MEDS: Clopidogrel Bisulfate 75 MG TAB PO SCH (06:02)
[2017-01-21] MEDS: Amlodipine 5 mg/Benazepril 10 mg CAP PO SCH (06:02)
[2017-01-21] MEDS: Furosemide 20 MG TAB PO SCH (06:03)
[2017-01-21] MEDS: Potassium Chloride 10 MEQ TAB PO SCH ×2 (06:03→20:54)
[2017-01-21] MEDS: Enoxaparin Sodium 80 MG/0.8 ML SYRINGE SC SCH (06:03)
[2017-01-21] MEDS: Lisinopril 10 MG TAB PO SCH (06:03)
[2017-01-21] MEDS ORDERED: Heparin 1000 UNIT/NS 500ML(OR) 1,000 ML ONE (06:38)
[2017-01-21] MEDS ORDERED: Fentanyl 100 MCG/2 ML VIAL ONE (07:57)
[2017-01-21] MEDS ORDERED: Nitroglycerin 100MG/250ML BOT 250 ML ONE (08:10)
[2017-01-21] MEDS ORDERED: Nitroglycerin 0.4 MG TAB (25 Tab Bottle) SL PRN (08:25)
[2017-01-21] MEDS ORDERED: Sodium Chloride 0.9% 200 ML IV SCH (08:30)
--- NOTE | 2017-01-21 10:28 | PDOC.PN ---
- Subjective Encounter Start Date: 01/21/17 Encounter Start Time: 07:50 s/p cardiac cath, Patient seen and examined. No new complaints. No overnight events - Objective Resuscitation Status: Resuscitation Status FULL:Full Resuscitation MAR Reviewed: Yes Vital Signs & Weight: Vital Signs (12 hours) Temp Pulse Resp BP BP Pulse Ox 01/21/17 08:30 96.4 F L 61 14 95 01/21/17 08:25 96.4 F L 61 14 137/83 95 01/21/17 07:25 97.6 F 76 16 121/57 L 95 01/21/17 06:03 118/70 01/21/17 06:01 118/70 01/21/17 04:00 97.9 F 98 18 118/70 96 01/21/17 01:59 97 Weight Weight 150 lb 9.6 oz I&O: 01/20/17 01/21/17 01/22/17 06:59 06:59 06:59 Intake Total 1440 1080 Output Total 840 Balance 1440 240 Result Diagrams: 01/20/17 05:36 01/20/17 05:36 EKG Reviewed by me: Yes Phys Exam - Physical Examination Constitutional: NAD HEENT: PERRLA, moist MMs, sclera anicteric Neck: no JVD, supple Respiratory: no wheezing, no rales, no rhonchi Cardiovascular: RRR, no significant murmur, no rub Gastrointestinal: soft, non-tender, no distention, positive bowel sounds Musculoskeletal: no edema, pulses present Neurological: non-focal, normal sensation Lymphatic: no nodes Psychiatric: normal affect Skin: no rash, normal turgor Dx/Plan (1) Dizziness Code(s): R42 - DIZZINESS AND GIDDINESS Status: Acute (2) NSTEMI (non-ST elevated myocardial infarction) Code(s): I21.4 - NON-ST ELEVATION (NSTEMI) MYOCARDIAL INFARCTION Status: Acute (3) Atrial fibrillation Code(s): I48.91 - UNSPECIFIED ATRIAL FIBRILLATION Status: Chronic Qualifiers: Atrial fibrillation type: paroxysmal Qualified Code(s): I48.0 - Paroxysmal atrial fibrillation (4) CKD (chronic kidney disease) stage 3, GFR 30-59 ml/min Code(s): N18.3 - CHRONIC KIDNEY DISEASE, STAGE 3 (MODERATE) Status: Chronic (5) Chronic anticoagulation Code(s): Z79.01 - SORT OPERATIONS SUPERVISOR (CURRENT) USE OF ANTICOAGULANTS Status: Chronic (6) Chronic systolic heart failure Code(s): I50.22 - CHRONIC SYSTOLIC (CONGESTIVE) HEART FAILURE Status: Chronic (7) Dyslipidemia Code(s): E78.5 - HYPERLIPIDEMIA, UNSPECIFIED Status: Chronic (8) GERD (gastroesophageal reflux disease) Code(s): K21.9 - GASTRO-ESOPHAGEAL REFLUX DISEASE WITHOUT ESOPHAGITIS Status: Chronic (9) History of CVA (cerebrovascular accident) Code(s): Z86.73 - PRSNL HX OF TIA (TIA), AND CEREB INFRC W/O RESID DEFICITS Status: Chronic (10) History of cardiomyopathy Code(s): Z86.79 - PERSONAL HISTORY OF OTHER DISEASES OF THE CIRCULATORY SYSTEM Status: Chronic (11) Hypertension Code(s): I10 - ESSENTIAL (PRIMARY) HYPERTENSION Status: Chronic (12) PVD (peripheral vascular disease) Code(s): I73.9 - PERIPHERAL VASCULAR DISEASE, UNSPECIFIED Status: Chronic (13) Protein-calorie malnutrition, mild Code(s): E44.1 - MILD PROTEIN-CALORIE MALNUTRITION Status: Chronic - Plan cont current plan of care * pt is euvolemic * continue ivf after cardiac cath to prevent nephrotoxicity * lovenox discontinued * cardiac cath showed non obstructive CAD * will monitor today and possible discharge tomorrow * medication reviewed as below * symptomatic treatment. Review of Systems - Review of Systems ENT: negative: Ear Pain, Ear Discharge, Nose Pain, Nose Discharge, Nose Congestion, Mouth Pain, Mouth Swelling, Throat Pain, Throat Swelling, Other Respiratory: negative: Cough, Dry, Shortness of Breath, Hemoptysis, SOB with Excertion, Pleuritic Pain, Sputum, Wheezing Cardiovascular: negative: Chest Pain, Palpitations, Orthopnea, Paroxysmal Noc. Dyspnea, Edema, Light Headedness, Other Gastrointestinal: negative: Nausea, Vomiting, Abdominal Pain, Diarrhea, Constipation, Melena, Hematochezia, Other Genitourinary: negative: Dysuria, Frequency, Incontinence, Hematuria, Retention , Other Musculoskeletal: negative: Neck Pain, Shoulder Pain, Arm Pain, Back Pain, Hand Pain, Leg Pain, Foot Pain, Other - Medications/Allergies Allergies/Adverse Reactions: Allergies Allergy/AdvReac Type Severity Reaction Status Date / Time No Known Allergies Allergy Verified 11/08/15 19:03 Medications: Current Medications Acetaminophen (Tylenol) 650 mg PO Q4H PRN PRN Reason: Headache/Fever or Pain Hydrocodone Bitart/Acetaminophen ([place] 5/325) 1 tab PO Q4H PRN PRN Reason: Moderate Pain (4-6) Al Hydroxide/Mg Hydroxide (Maalox) 30 ml PO Q6H PRN PRN Reason: Heartburn or Indigestion Allopurinol (Zyloprim) 100 mg PO DAILY [facility] Last Admin: 01/21/17 06:02 Dose: 100 mg Amlodipine/Benazepril HCl (Lotrel 5/10) 2 cap PO DAILY [facility] Last Admin: 01/21/17 06:02 Dose: 2 cap Artificial Tears (Tears Naturale) 0 drop EA EYE PRN PRN PRN Reason: Dry Eyes Aspirin (Aspirin Chewable) 81 mg PO DAILY [facility] Last Admin: 01/21/17 06:02 Dose: 81 mg Atorvastatin Calcium (Lipitor) 20 mg PO HS [facility] Last Admin: 01/20/17 20:24 Dose: 20 mg Carvedilol (Coreg) 12.5 mg PO BID-WM [facility] Last Admin: 01/21/17 06:01 Dose: 12.5 mg Clopidogrel Bisulfate (Plavix) 75 mg PO QAM [facility] Last Admin: 01/21/17 06:02 Dose: 75 mg Famotidine (Pepcid) 20 mg PO Q24HR [facility] Last Admin: 01/20/17 20:25 Dose: 20 mg Furosemide (Lasix) 20 mg PO DAILY [facility] Last Admin: 01/21/17 06:03 Dose: 20 mg Guaifenesin (Robitussin Sf) 200 mg PO Q4H PRN PRN Reason: Cough Hydralazine HCl (Apresoline) 10 mg SLOW IVP Q4H PRN PRN Reason: Systolic BP > 180 Sodium Chloride (Normal Saline 0.9%) 1,000 mls @ 100 mls/hr IV .Q10H [facility] Last Admin: 01/21/17 06:00 Dose: 1,000 mls Sodium Chloride (Normal Saline 0.9%) 200 mls @ 0 mls/hr IV ONE [facility] PRN Reason: As Directed Stop: 01/21/17 22:00 Labetalol HCl (Normodyne) 20 mg SLOW IVP Q4H PRN PRN Reason: Systolic BP > 180 Lisinopril (Zestril) 10 mg PO DAILY [facility] Last Admin: 01/21/17 06:03 Dose: 10 mg Loperamide HCl (Imodium) 2 mg PO PRN PRN PRN Reason: Diarrhea/Loose Stools Loratadine (Claritin) 10 mg PO DAILYPRN PRN PRN Reason: Sinus Symptoms Magnesium Hydroxide (Milk Of Magnesium) 30 ml PO DAILYPRN PRN PRN Reason: Constipation Mineral Oil/White Petrolatum (Eucerin Cream) 0 gm TOP BIDPRN PRN PRN Reason: Dry Skin Miscellaneous Information (Communication Order-Pharmacy) 0 each FS ONE [facility] Stop: 01/21/17 12:00 Nitroglycerin (Nitrostat) 0.4 mg SL Q5MIN PRN PRN Reason: Chest Pain Ondansetron HCl (Zofran Odt) 4 mg PO Q6H PRN PRN Reason: Nausea/Vomiting Ondansetron HCl (Zofran) 4 mg IVP Q6H PRN PRN Reason: Nausea/Vomiting Phenol (Chloraseptic [place] 180 Ml Bot) 0 ml PO PRN PRN PRN Reason: Sore Throat Potassium Chloride (Klor-Con 10) 10 meq PO BID [facility] Last Admin: 01/21/17 06:03 Dose: 10 meq Senna (Senokot) 2 tab PO HSPRN PRN PRN Reason: Constipation Sodium Chloride ([place] Nasal [place] 0.65%) 0 ml EA NARE QIDPRN PRN PRN Reason: Nasal Congestion Zolpidem Tartrate (Ambien) 5 mg PO HSPRN PRN PRN Reason: Insomnia
[2017-01-21] MEDS ORDERED: Iopamidol 370 76% 100 ML VIAL ONE (13:02)
[2017-01-21] MEDS: Atorvastatin Calcium 20 MG TAB PO SCH (20:53)
[2017-01-21] MEDS: Famotidine 20 MG TAB PO SCH (20:54)
[2017-01-22] MEDS ORDERED: Sodium Chloride 0.9% 10 ML ONE (08:15)
[2017-01-22 08:29] LABS: #Eosinphils 0.2 thou/uL (0.0-0.7); #Monocytes 0.5 thou/uL (0.11-0.59); #Neutrophils 1.5 thou/uL (1.40-6.50); %Basophils 0.5 % (0.0-1.0); %Eosinophils 4.3 % (0.0-10.0); %Lymphocytes 47.2 % (21.0-51.0); %Monocytes 11.5 % (0.0-10.0); Hematocrit 44.7 % (42.0-52.0); Mean Platelet Volume 8.4 fL (7.4-10.4); Red Blood Cell (RBC) Count 4.87 mill/uL (4.70-6.10); White Blood Cell (WBC) Count 4.2 thou/uL (4.8-10.8)
[2017-01-22 08:41] LABS: Anion Gap 9 mmol/L (10-20); BUN (Urea Nitrogen) 19 mg/dL (8.4-25.7); Calc. Creatinine Clearance 39 mL/min (70-130); Calcium 9.5 mg/dL (7.8-10.44); Carbon Dioxide 24 mmol/L (23-31); Chloride 109 mmol/L (98-107); Estimated GFR-MDRD 54
[2017-01-22] MEDS: Carvedilol 6.25 MG TAB PO SCH (09:15)
[2017-01-22] MEDS: Allopurinol 100 MG TAB PO SCH (09:16)
[2017-01-22] MEDS: Amlodipine 5 mg/Benazepril 10 mg CAP PO SCH (09:16)
[2017-01-22] MEDS: Furosemide 20 MG TAB PO SCH (09:17)
[2017-01-22] MEDS: Potassium Chloride 10 MEQ TAB PO SCH (09:17)
--- NOTE | 2017-01-22 09:30 | PRG ---
DATE OF SERVICE: 01/22/2017 SUBJECTIVE: Mr. Hernandez is doing well today. He has no complaints. The patient has expressive aphasia, but does not have receptive aphasia and states he is doing okay w ith chest pain or pressure. PHYSICAL EXAMINATION: VITAL SIGNS: Blood pressure 134/66, pulse 70, regular. LUNGS: Clear. CARDIAC: Normal S1, normal S2. ASSESSMENT: 1. Status post non-ST elevation infarction. 2. Cardiac catheterization revealed no flow limiting disease, 30% to 40% LAD lesion with slow flow i n the LAD, 30% right coronary lesion, 30% to 40% circumflex lesions. 3. 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 Review of previous echoes in 2 016, they look like there may be a very small amount of thrombus at the apex, but it looks much more prominent now. 4. Paroxysmal atrial fibrillation. 5. Congestive heart failure, stable. PLAN: 1. We would stop Plavix. 2. Aspirin 81 mg a day. 3. Eliquis 5 mg twice a day. Hopefully, can give this dose for several months to stabilize this api jan thrombus, it is unclear exactly the duration of this, but ideally we would like to fully anticoag ulate him. He is a poor candidate for Coumadin and regulating Coumadin would be very problematic 4. Lisinopril 10 mg a day. 5. Lasix 20 mg a day. 6. Potassium 10 mEq twice a day. Okay to go home, see us in a month.
[2017-01-22 12:00] VITALS: TEMP 97.9
--- NOTE | 2017-01-22 12:17 | DIS ---
DATE OF ADMISSION: 01/17/2017 DATE OF DISCHARGE: 01/22/2017 PRIMARY CARE PHYSICIAN: Dr. Pawel Gates in [place]. DISCHARGE DISPOSITION: Home. PRIMARY DISCHARGE DIAGNOSES: 1. Acute non-ST elevation myocardial infarction. 2. Acute hypoxic respiratory failure. 3. Nonsustained ventricular tachycardia. 4. Acute on chronic kidney failure. SECONDARY DISCHARGE DIAGNOSES: Paroxysmal atrial fibrillation, chronic anticoagulation therapy, dyslipidemia, gastroesophageal reflux disease, hypertension, chronic kidney disease stage 3, chronic systolic heart failure, hypertension, dyslipidemia, coronary artery disease, history of cerebrovascular accident, sensorineural deafness, peripheral vascular disease. PRIMARY PROCEDURE/OPERATION: Cardiac catheterization was done by Dr. Scott and it was a nonobstructive coronary artery disease. RADIOLOGICAL INVESTIGATION: Echocardiography showed EF 40%, diastolic dysfunction. CT brain was negative for any acute intracranial process. SIGNIFICANT LABORATORY DATA: CBC: WBC 4.2, hemoglobin 14.5, platelet 226. INR 1.1. Sodium 138, potassium 4.1, BUN 19, creatinine 1.51, calcium 9.5, troponin 4.16, LDL 81. DISCHARGE MEDICATIONS: ProAir HFA one puff q.4 hourly p.r.n., allopurinol 100 mg p.o. daily, Eliquis 5 mg p.o. b.i.d., aspirin 81 mg p.o. daily, Coreg 25 mg p.o. b.i.d., Lasix 20 mg p.o. b.i.d., indomethacin 50 mg p.o. t.i.d. p.r.n. for gout, Prinzide 11/21.5 one tablet p.o. daily, nitroglycerin p.r.n. basis as directed, Protonix 40 mg p.o. daily, potassium chloride 10 mEq p.o. b.i.d., Zocor 40 mg p.o. at bedtime. CONTRAINDICATIONS: None. CODE STATUS: FULL CODE. INPATIENT CONSULTANTS: Dr. Gee was consulted for non-ST elevation SC and subsequently Dr. Scott did a cardiac catheterization. TEST RESULTS PENDING ON DISCHARGE: None. ALLERGIES: No known drug allergies. DISCHARGE PLAN: Post hospital, the patient will follow up with primary care physician and canvas goods maker as instructed. HOSPITAL COURSE: A 76-year-old male who was admitted by me. Please see my HPI for further details. Initially, he went to [place] [facility] for dizziness. He was not complaining of any chest pain. He was not able to provide any good history on admission, but he went to [place] [facility] where he was found with a significantly abnormal troponin. His EKG was also showing some ischemic changes and that is why he was sent to our hospital for further evaluation and treatment. In the emergency room, Dr. Gee saw this patient and he admitted to telemetry floor and we treated him conservatively with aspirin, Plavix, and Lovenox. We did echocardiography which showed systolic and diastolic dysfunction. Subsequently, Dr. Scott did a cardiac catheterization and it showed nonobstructive coronary artery disease. Overall, this patient is stable for discharge. He was given IV fluid after cardiac catheterization and his renal function is improved back to baseline. During this admission, we changed his chronic anticoagulation with Eliquis therapy and we are continuing the rest of the medication as per previous. The patient is seen and examined at bedside today. Review of systems reviewed and negative. Cardiology cleared him for discharge. Paper work for discharge done. All new medication prescriptions sent to his pharmacy. PHYSICAL EXAMINATION: VITAL SIGNS: Currently, temperature 97.5, pulse 75, respiratory rate 18, saturation 98%, blood pressure 141/78. Weight 150 pounds. GENERAL: The patient is alert and oriented, no acute distress. HEAD: Normocephalic, atraumatic. LUNGS: Clear. CARDIAC: S1 and S2 regular without any murmur. ABDOMEN: Soft and benign. EXTREMITIES: No edema. NEUROLOGIC: Nonfocal examination. Overall, this patient is medically stable for discharge today. Total time spent on discharge day more than 30 minutes MTDD
[2017-01-22 12:19] VITALS: BP 151/103
[2017-01-24] MEDS ORDERED: Apixaban 5 MG TAB PO SCH (09:00)
== END 2017-01-22 14:35 | disposition home or self-care (01) | DRG 280 ==
LOC: EEVIPCON 12:51 → ERS 12:51 → 2NO 15:32
PROVIDERS: ADMIT Internal Medicine; ATTEND Internal Medicine
PROC: 4A023N7 Measurement of Cardiac Sampling and Pressure, Left Heart, Percutaneous Approach (ICD-10-PCS; principal; 2017-01-21)
PROC: B2111ZZ Fluoroscopy of Multiple Coronary Arteries using Low Osmolar Contrast (ICD-10-PCS; 2017-01-21)
DX: I21.4 Non-ST elevation (NSTEMI) myocardial infarction (principal); J96.01 Acute respiratory failure with hypoxia; N17.9 Acute kidney failure, unspecified; I13.0 Hypertensive heart and chronic kidney disease with heart failure and stage 1 through stage 4 chronic kidney disease, or unspecified chronic kidney disease; I50.22 Chronic systolic (congestive) heart failure; I42.8 Other cardiomyopathies; E44.1 Mild protein-calorie malnutrition; I48.0 Paroxysmal atrial fibrillation; I69.920 Aphasia following unspecified cerebrovascular disease; E78.5 Hyperlipidemia, unspecified; Z95.810 Presence of automatic (implantable) cardiac defibrillator; I25.10 Atherosclerotic heart disease of native coronary artery without angina pectoris; I25.2 Old myocardial infarction; K21.9 Gastro-esophageal reflux disease without esophagitis; Z79.01 Long term (current) use of anticoagulants; I73.9 Peripheral vascular disease, unspecified; Z79.82 Long term (current) use of aspirin; N18.3 Chronic kidney disease, stage 3 (moderate); I51.3 Intracardiac thrombosis, not elsewhere classified; H90.5 Unspecified sensorineural hearing loss; Z68.21 Body mass index [BMI] 21.0-21.9, adult
CPT/HCPCS: 36415; 70450; 71275; 76942; 80048; 80053; 80061; 84484; 85025; 85610; 85730; 90471; 90682; 93005; 93306; 93454; 93798; 96372; 96374; 99152; A4216; C1769; G0008; J1644; J1650; J1940; J3010; Q2036

== ENCOUNTER 2017-03-13 15:47 | Inpatient (IN) | payer MEDICARE ==
[2017-03-13 16:44] LABS: Hemoglobin 17.8 g/dL (14.0-18.0); Mean Corpuscular HGB CONC 31.9 g/dL (32.0-36.0); Mean Corpuscular Hemoglobin 28.9 pg (27.0-31.0); Mean Corpuscular Volume 90.5 fl (80.0-94.0); Mean Platelet Volume 9.9 fL (7.4-10.4); Platelet Count 281 thou/uL (130-400); RBC Distribution Width 13.5 % (11.5-14.5); Red Blood Cell (RBC) Count 6.16 mill/uL (4.70-6.10); White Blood Cell (WBC) Count 11.1 thou/uL (4.8-10.8)
--- NOTE | 2017-03-13 16:44 | RAD ---
PORTABLE UPRIGHT FRONTAL CHEST RADIOGRAPH 03/13/17 COMPARISON: 11/08/15 HISTORY: Left sided weakness. FINDINGS: There is a dual lead AICD present. No pneumothorax or pleural fluid is seen. there is no lobar consol idation or alveolar edema. There are degenerative changes involving the AC joints. IMPRESSION: No acute findings. POS: [facility]
[2017-03-13 16:56] LABS: CKMB 5.7 ng/mL (0-6.6)
[2017-03-13 17:01] LABS: Troponin I 0.251 ng/mL (< 0.028)
[2017-03-13 17:06] LABS: Band 2 % (5-11); Eosinophils 2 % (0-10); Lymphocytes 13 % (21-51); MDiff Complete? YES; Monocytes 7 % (0-10); Neutrophil 76 % (42-75); PLT Morphology Comment Appears Adequate
--- NOTE | 2017-03-13 17:06 | CT ---
HEAD CT WITHOUT CONTRAST 03/13/17 COMPARISON: 01/20/17 HISTORY: Left sided weakness with altered mental status. TECHNIQUE: Serial axial CT imaging at 5 mm intervals from vertex through skull base without contrast. FINDINGS: There is a subtle new area of loss of lowe-white differentiation near the vertex laterally on the rig ht on image 24 suggesting acute infarction of the right frontal lobe. This involves a portion of the right frontal lobe measurin in the 2.1 cm range. There is evidence of prior infarction within the fro ntoparietal region posteriorly on the right, stable. There is extensive prior left MCA infarction. Imaged paranasal sinuses/mastoid air cells are well aerated. There is no displaced calvarial fracture . IMPRESSION: 1. Findings suggesting an area of acute infarction near the vertex on the right involving the ri ght frontal lobe. 2. Areas of prior infarction noted bilaterally. 3. No evidence for intracranial hemorrhage. Brain MRI advised. Nurse practitioner Mark made aware 4:35 p.m., 03/13/17. Code CR POS: [facility]
[2017-03-13] MEDS ORDERED: Acetaminophen 650 MG Suppository ONE (17:07)
[2017-03-13] MEDS ORDERED: Aspirin 300 MG Suppository ONE (17:07)
[2017-03-13] MEDS ORDERED: Furosemide 40 MG/4 ML VIAL ONE (17:07)
[2017-03-13 17:19] LABS: Albumin 4.2 g/dL (3.4-4.8)
[2017-03-13 17:20] LABS: Chloride 114 mmol/L (98-107); Potassium 4.7 mmol/L (3.5-5.1); Sodium 148 mmol/L (136-145)
[2017-03-13 17:21] LABS: Calcium 10.5 mg/dL (7.8-10.44); Glucose 115 mg/dL (83-110)
[2017-03-13 17:22] LABS: Globulin 4.8 g/dL (2.4-3.5)
[2017-03-13 17:23] LABS: Anion Gap 21 mmol/L (10-20); Bilirubin, Total 0.7 mg/dL (0.2-1.2); Carbon Dioxide 18 mmol/L (23-31)
[2017-03-13 17:25] LABS: Calc. Creatinine Clearance 0 mL/min (70-130); Estimated GFR-MDRD 45
[2017-03-13 17:26] LABS: AST (SGOT) 21 U/L (5-34)
[2017-03-13 17:41] LABS: Bilirubin Negative (Negative); Blood, Urine Moderate (Negative); Clarity CLOUDY (Clear); Glucose, Urine (Dipstick) Negative (Negative); Leukocyte Negative (Negative); Nitrite Negative (Negative); Protein, Urine (Dipstick) 300 mg/dL (Neg-Trace); Specific Gravity, Urine 1.021 (1.002-1.036); Urobilinogen 0.2 mg/dL (0.2-1.0); pH, Urine 5.5 (5.0-9.0)
[2017-03-13 17:47] LABS: Bacteria/HPF None Seen HPF (None Seen); Hyaline Casts/LPF 7-10 HYALINE CAST LPF (0-3 Hyaline); Pathc Cast-AUWi Flag 1.62 (0-2.49); Squamous Epithelial 0-3 HPF (0-3); WBC/HPF 0-3 HPF (0-3)
[2017-03-13 17:47] LABS: Alkaline Phosphatase 117 U/L (40-150)
[2017-03-13 17:48] LABS: BUN (Urea Nitrogen) 30 mg/dL (8.4-25.7)
[2017-03-13 17:50] LABS: Renal Epithelial None Seen HPF (0-3); Transitional Epithelial NONE SEEN HPF (0-3)
[2017-03-13 17:50] LABS: ALT (SGPT) 10 U/L (8-55)
[2017-03-13] MEDS ORDERED: Labetalol HCl 100 MG/20 ML VIAL SLOW IVP PRN (18:16)
[2017-03-13] MEDS ORDERED: Piperacillin/Tazobactam 3.375 GM in Sodium Chloride 0.9% 100 ML IVPB ONE (18:30)
[2017-03-13] MEDS ORDERED: Nitroglycerin 50 MG/250 ML BOT 250 ML ONE (19:33)
[2017-03-13 19:40] LABS: Troponin I 0.267 ng/mL (< 0.028)
[2017-03-13] MEDS ORDERED: Nitroglycerin 50 MG/250 ML BOT 250 ML IVPB SCH (19:45)
[2017-03-13] MEDS ORDERED: Atorvastatin Calcium 40 MG TAB PO SCH (21:00)
[2017-03-13 21:53] LABS: Lactic Acid 2.8 mmol/L (0.5-2.2)
[2017-03-13 22:08] LABS: Troponin I 0.277 ng/mL (< 0.028)
--- NOTE | 2017-03-14 00:21 | HP ---
HISTORY OF PRESENT ILLNESS: A 76-year-old male with a history of CVA, congestive heart failure with EF 45%-50%, hypertension, dyslipidemia, ischemic cardiomyopathy, history of V-tach requiring AICD karen cement, CAD with a history of ID in 1978, GERD, history of left cerebrovascular accident with express kristie aphasia, paroxysmal atrial fibrillation on chronic anticoagulation with Xarelto, splenic and tracy l infarcts, PVD, left lower extremity compartment syndrome requiring fistulectomy with thrombectomy f or gangrene, who presents to the emergency room today with a change in mental status, last known norm al was on Friday around 12:00 p.m. History limited due to patient being aphasic and not able to giv e a history. At the emergency room, he was found to be severely hypotensive with initial blood press ure. According to EMS, when his sister saw him normal was 48 hours ago around 12 in the afternoon wh en he returned approximately an hour before bringing him to the hospital, he was found to be encephal opathic, unable to answer questions or ambulate at which time EMS was called. Vital signs on present ation, blood pressure was 211/144, pulse 88, respiratory rate 28, and a temperature was 101 degree Fa hrenheit. Labs revealed sodium of 148, chloride of 114, BUN/creatinine of 30/1.77. Lactic acid was 4.3. Initial troponin was 0.251. BNP 618. Hematology just showed marginally elevated white count a t 11.1. Urinalysis was largely unremarkable. CT brain without contrast showed finding suggestive of an acute area of infarction. Negative vertex on the right involving the right frontal lobe, also sh owed areas of prior infection noted bilaterally with no evidence of intracranial hemorrhage. The balbir iemarcela was then admitted for further workup. PAST MEDICAL HISTORY: As above. PAST SURGICAL HISTORY: From chart review, he had an AICD placement in 2004, cardiac catheterization in 2002, TURP in 2004. SOCIAL HISTORY: Unable to determine. ALLERGIES: From chart review, he has no drug allergies. FAMILY HISTORY: Unable to determine. REVIEW OF SYSTEMS: Unable due to the patient being aphasic. PHYSICAL EXAMINATION: VITAL SIGNS: Blood pressure of about 170/109 with a pulse of 100, respiratory rate 18. GENERAL: He seems alert and following simple commands. HEENT: Head: Normocephalic, atraumatic. Eyes: Pupils round, reactive to light. EOMI. Not pale, anicteric. ENT: Moist mucous membrane. No oral lesions or exudate. NECK: Supple, no JVD. LUNGS: Clear to auscultation bilaterally without any wheezing or rhonchi. ABDOMEN: Soft, bowel sounds present, nontender, nondistended, no organomegaly. EXTREMITIES: Strength is about 1/5 in upper and lower limbs on the left. On the right, he has close to 3/5 upper extremity strength with 2/5 lower extremities. Hemiparesis in left and right extremiti es, worse on the left. SKIN: Warm and dry, well-perfused. NEUROLOGIC: Aphasic, not able to follow simple commands. LABORATORY DATA: As above. IMAGING: As above. ASSESSMENT AND PLAN: 1. Acute ischemic stroke. CT brain shows an infarction on the vertex on the right frontal lobe. Nick mckeon is clinically stable now. We will admit to the ICU. Consult Neurology, also allow for permiss kristie hypertension for now, but will give medication for diastolic blood pressure greater than 120. We will get MRI brain without contrast and trend his troponin serially. He has had his last TTE was in 01/2017, so we will not order a TTE for now, keep n.p.o. Get lipid profile, speech language patholo gy, early physical, and occupational therapy. We will also be started on aspirin and statins. 2. Non-ST elevation myocardial infarction, type 2. The patient likely has demand ischemia both unab le to complain of chest pain. Therefore, we will trend troponin serially. If trending up, we will s tart on anticoagulation and consult cardiology. 3. Paroxysmal atrial fibrillation. He is currently rate controlled. We will monitor, also takes El iquis on outpatient basis. We will be cautious with anticoagulation due to possibility of hemorrhagi c transformation of his cerebrovascular accident, chronic systolic heart failure, stable; not in acut e failure. We will monitor closely and resume his medications once able to take orally. 4. Chronic kidney disease stage 3. We will monitor while in hospital.
[2017-03-14 04:18] LABS: INR-International Normal Ratio 1.2; Prothrombin Time 15.2 SEC (12.0-14.7)
[2017-03-14 04:23] LABS: ALT (SGPT) 8 U/L (8-55); AST (SGOT) 20 U/L (5-34); Albumin 3.7 g/dL (3.4-4.8); Alkaline Phosphatase 91 U/L (40-150); Anion Gap 18 mmol/L (10-20); BUN (Urea Nitrogen) 35 mg/dL (8.4-25.7); Bilirubin, Total 0.8 mg/dL (0.2-1.2); Calc. Creatinine Clearance 31 mL/min (70-130); Calcium 9.9 mg/dL (7.8-10.44); Carbon Dioxide 20 mmol/L (23-31); Cardiac Risk 3.9 (Less than 4.5); Chloride 116 mmol/L (98-107); Cholesterol 150 mg/dl (< 200 Desired); Estimated GFR-MDRD 44; Glucose 129 mg/dL (83-110); HDL Cholesterol 38 mg/dL (>60 Neg Risk); LDL Cholesterol, Calculated 87 mg/dL; Potassium 3.8 mmol/L (3.5-5.1); Protein, Total 7.7 g/dL (5.8-8.1); Sodium 150 mmol/L (136-145); Triglycerides 127 mg/dL (Less than 150)
[2017-03-14 04:28] LABS: Troponin I 0.337 ng/mL (< 0.028)
[2017-03-14] MEDS ORDERED: Nitroglycerin 0.4 MG TAB (25 Tab Bottle) SL PRN (08:05)
[2017-03-14] MEDS ORDERED: PROVENTIL INHALER 6.7 G (200 INHALATIONS) INH PRN (08:05)
[2017-03-14] MEDS ORDERED: Eucerin (Mineral Oil/Petrolatum,White) 30 gm Jar TOP PRN (08:06)
[2017-03-14] MEDS ORDERED: Loperamide HCl 2 MG CAP PO PRN (08:06)
[2017-03-14] MEDS ORDERED: Sodium Chloride 0.65% Nasal 44 ML BOT EA NARE PRN (08:06)
[2017-03-14] MEDS ORDERED: HYDROcodone/Acetaminophen 5/325 mg Tablet PO PRN (08:06)
[2017-03-14] MEDS ORDERED: Milk Of Magnesia 30 ML UDCUP PO PRN (08:06)
[2017-03-14] MEDS ORDERED: Loratadine 10 MG TAB PO PRN (08:06)
[2017-03-14] MEDS ORDERED: Diabetic Tussin 200 MG/10 ML UDCUP PO PRN (08:06)
[2017-03-14] MEDS ORDERED: Acetaminophen 325 MG TAB PO PRN (08:06)
[2017-03-14] MEDS ORDERED: Chloraseptic Spray 180 ml Bottle PO PRN (08:06)
[2017-03-14] MEDS ORDERED: Artificial Tears 18 DROP/0.9 ML EA EYE PRN (08:06)
[2017-03-14] MEDS ORDERED: Senokot 8.6 MG TAB PO PRN (08:06)
[2017-03-14] MEDS ORDERED: Ondansetron ODT 4 MG TAB PO PRN (08:06)
[2017-03-14] MEDS ORDERED: Ondansetron HCl/PF 4 MG/2 ML Vial IVP PRN (08:06)
[2017-03-14] MEDS ORDERED: Mag-Al 1200 mg/1200 mg/30 ML UDCUP PO PRN (08:06)
[2017-03-14] MEDS ORDERED: Dextrose 5% in Water 500 ML IV SCH (08:15)
[2017-03-14] MEDS ORDERED: Metoprolol Tartrate 5 MG/5 ML VIAL IVP SCH (08:45)
--- NOTE | 2017-03-14 08:53 | ULT ---
CAROTID DUPLEX ULTRASOUND: INDICATION: History of CVA. FINDINGS: There is mild noncalcified atherosclerotic plaque involving the proximal left ICA. There is intimal thickening involving the common carotid arteries bilaterally. The peak systolic velocity within the right CCA was 47.4 cm/s. The peak systolic velocity within the right ICA was 60.6 cm/s. The IC:CC ratio is 1.28. Peak systolic velocity in the left CCA was 57 cm/s. The peak systolic velocity in the left ICA was 22.8 cm/s. The left IC:CC ratio is 0.40. Antegrade flow was seen within the vertebral arteries. IMPRESSION: No hemodynamically significant stenosis is demonstrated. POS: [facility]
[2017-03-14] MEDS ORDERED: Apixaban 5 MG TAB PO SCH (09:00)
[2017-03-14] MEDS ORDERED: Aspirin 81 mg Enteric Coated Tablet PO SCH (09:00)
[2017-03-14] MEDS ORDERED: Furosemide 20 MG TAB PO SCH (09:00)
[2017-03-14] MEDS ORDERED: Nitroglycerin 50 MG/250 ML BOT 250 ML IVPB SCH (09:15)
[2017-03-14] MEDS: Allopurinol 100 MG TAB PO SCH (10:10)
[2017-03-14] MEDS: Apixaban 5 MG TAB PO SCH ×2 (10:10→19:50)
[2017-03-14] MEDS ORDERED: Metoprolol Tartrate 5 MG/5 ML VIAL ONE (10:17)
[2017-03-14] MEDS: Metoprolol Tartrate 5 MG/5 ML VIAL IVP SCH ×4 (10:20→18:44)
--- NOTE | 2017-03-14 11:16 | CON ---
DATE OF CONSULTATION: 03/14/2017 CARDIOLOGY CONSULTATION REASON FOR CONSULTATION: Stroke, history of cardiomyopathy. HISTORY OF PRESENT ILLNESS: Mr. Jordan Hernandez is a 76-year-old gentleman with history of previous exte nsive left hemispheric stroke resulting in aphasia and right-sided weakness and hemiplegia. He also has a cardiomyopathy with history of apical thrombus as well as coronary artery disease. He was in [facility] recently with some chest discomfort which he motioned to his chest to indicate that was w here he was feeling. We did a heart catheterization which showed nonobstructive atherosclerosis best treated medically. He was discharged home on Eliquis 5 mg twice a day as well as metoprolol and HUSAM inhibitor. The patient was readmitted with extensive right hemispheric stroke on this occasion. He is unresponsive now. The history is not available from the patient as he cannot respond now. HOME MEDICATIONS: Included: 1. Simvastatin. 2. Carvedilol 25 mg twice a day. 3. Lisinopril 10/12.5 a day. 4. Indomethacin if needed. 5. Apixaban 5 mg twice daily. 6. Protonix. REVIEW OF SYSTEMS: Not available. PAST MEDICAL HISTORY: Also had history of embolism to lower extremity which was successfully treated by Dr. Williamson. PHYSICAL EXAMINAITON: GENERAL: Ill-appearing elderly -[place] gentleman. VITAL SIGNS: Blood pressure 160 systolic, but is variable. HEENT: Sclerae nonicteric. Mouth, mucous membranes moist. NECK: Supple, no lymphadenopathy. LUNGS: Clear. No wheezing, rales, or rhonchi. CARDIAC: Normal S1, normal S2. There is no murmur, rub, or gallop. ABDOMEN: Soft, nontender. No hepatosplenomegaly. EXTREMITIES: Warm and dry. No clubbing or cyanosis. No edema. NEUROLOGIC: The patient is not moving his extremities currently, not following commands. PERTINENT LABORATORY DATA: Hemoglobin 17.8, creatinine 1.8, troponin 0.337. IMAGING: Reveals a new right hemispheric stroke. ASSESSMENT: 1. Previous left hemispheric stroke. 2. Right hemispheric stroke, suspected embolic event. 3. History of cardiomyopathy. 4. ? compliance with medications. 5. Hypertension. PLAN: 1. Change to intravenous HUSAM inhibitor and beta prosper. 2. Resume anticoagulation when thought it would be reasonable to do so from a neurologic standpoint. 3. Prognosis unfortunately does appear to be poor in this gentleman. 4. Increased troponin level, probably demand ischemia.
[2017-03-14] MEDS: Lactated Ringer's 1,000 ML IV SCH ×2 (11:30→13:04)
--- NOTE | 2017-03-14 11:40 | PDOC.PN ---
- Subjective Encounter Start Date: 03/14/17 Encounter Start Time: 10:50 -: non-verbal, old records requested/rev Patient seen and examined. No overnight events pt failed swallow evaluation - Objective Resuscitation Status: Resuscitation Status FULL:Full Resuscitation MAR Reviewed: Yes Vital Signs & Weight: Vital Signs (12 hours) Temp 03/14/17 08:00 99.1 F 03/14/17 06:00 98.8 F 03/14/17 03:00 98.6 F Weight Weight 143 lb 15.39 oz Most Recent Monitor Data Heart Rate from ECG 83 NIBP 168/118 NIBP BP-Mean 141 Respiration from ECG 29 SpO2 93 I&O: 03/13/17 03/14/17 03/15/17 06:59 06:59 06:59 Intake Total 39.5 0 Output Total 615 127 Balance -575.5 -127 Result Diagrams: 03/13/17 16:23 03/14/17 03:46 Radiology Reviewed by me: Yes (CT brain) EKG Reviewed by me: Yes (Tachycardia) Phys Exam - Physical Examination Constitutional: NAD HEENT: PERRLA, moist MMs, sclera anicteric Neck: no JVD, supple Respiratory: no wheezing, no rales, no rhonchi Cardiovascular: RRR, no significant murmur, no rub tachycardia Gastrointestinal: soft, non-tender, no distention, positive bowel sounds Musculoskeletal: no edema, pulses present left side weakness Lymphatic: no nodes Psychiatric: normal affect Skin: no rash, normal turgor Dx/Plan (1) Acute CVA (cerebrovascular accident) Code(s): I63.9 - CEREBRAL INFARCTION, UNSPECIFIED Status: Acute Comment: acute infarction of right frontal lobe (2) Acute on chronic combined systolic and diastolic congestive heart failure Code(s): I50.43 - ACUTE ON CHRONIC COMBINED SYSTOLIC AND DIASTOLIC HRT FAIL Status: Acute (3) Acute worsening of stage 3 chronic kidney disease Code(s): N18.3 - CHRONIC KIDNEY DISEASE, STAGE 3 (MODERATE) Status: Acute (4) Elevated troponin Code(s): R74.8 - ABNORMAL LEVELS OF OTHER SERUM ENZYMES Status: Acute (5) Hypernatremia Code(s): E87.0 - HYPEROSMOLALITY AND HYPERNATREMIA Status: Acute (6) Atrial fibrillation Code(s): I48.91 - UNSPECIFIED ATRIAL FIBRILLATION Status: Chronic Qualifiers: Atrial fibrillation type: paroxysmal (7) CKD (chronic kidney disease) stage 3, GFR 30-59 ml/min Code(s): N18.3 - CHRONIC KIDNEY DISEASE, STAGE 3 (MODERATE) Status: Chronic (8) Chronic anticoagulation Code(s): Z79.01 - CAR DUMPER (CURRENT) USE OF ANTICOAGULANTS Status: Chronic (9) Dyslipidemia Code(s): E78.5 - HYPERLIPIDEMIA, UNSPECIFIED Status: Chronic (10) GERD (gastroesophageal reflux disease) Code(s): K21.9 - GASTRO-ESOPHAGEAL REFLUX DISEASE WITHOUT ESOPHAGITIS Status: Chronic (11) History of CVA (cerebrovascular accident) Code(s): Z86.73 - PRSNL HX OF TIA (TIA), AND CEREB INFRC W/O RESID DEFICITS Status: Chronic (12) History of cardiomyopathy Code(s): Z86.79 - PERSONAL HISTORY OF OTHER DISEASES OF THE CIRCULATORY SYSTEM Status: Chronic (13) Hypertension Code(s): I10 - ESSENTIAL (PRIMARY) HYPERTENSION Status: Chronic (14) Left ventricular apical thrombus Code(s): QBH0981 - Status: Chronic (15) NSVT (nonsustained ventricular tachycardia) Code(s): I47.2 - VENTRICULAR TACHYCARDIA Status: Chronic (16) PVD (peripheral vascular disease) Code(s): I73.9 - PERIPHERAL VASCULAR DISEASE, UNSPECIFIED Status: Chronic - Plan cont current plan of care, PT/OT, social secretary, speech therapy * start nitro patch * MRI is not possible due to his pacemaker * medication reviewed as below * symptomatic treatment * stroke team * continue iv meds for BP and HR control * once oral intake safe, then will start oral meds * Tried to call family member, but unable to reach at this time. * may need PEG Review of Systems - Review of Systems Other: unable to review as pt is sleepy and current cognitive status due to stroke - Medications/Allergies Allergies/Adverse Reactions: Allergies Allergy/AdvReac Type Severity Reaction Status Date / Time No Known Allergies Allergy Verified 03/13/17 22:56 Medications: Current Medications Acetaminophen (Tylenol) 650 mg PO Q4H PRN PRN Reason: Headache/Fever or Mild Pain Hydrocodone Bitart/Acetaminophen ([place] 5/325) 1 tab PO Q4H PRN PRN Reason: Moderate Pain (4-6) Al Hydroxide/Mg Hydroxide (Maalox) 15 ml PO Q4H PRN PRN Reason: Heartburn or Indigestion Albuterol Sulfate (Proventil Hfa) 1 puff INH Q4HR PRN PRN Reason: SOB &/or Wheezing Allopurinol (Zyloprim) 100 mg PO DAILY [facility] Last Admin: 03/14/17 10:10 Dose: Not Given Apixaban (Eliquis) 5 mg PO BID [facility] Last Admin: 03/14/17 10:10 Dose: Not Given Artificial Tears (Tears Naturale) 0 drop EA EYE PRN PRN PRN Reason: Dry Eyes Aspirin (Ecotrin) 81 mg PO DAILY [facility] Last Admin: 03/14/17 10:10 Dose: Not Given Atorvastatin Calcium (Lipitor) 40 mg PO HS [facility] Carvedilol (Coreg) 25 mg PO BID[facility] Enalaprilat (Vasotec) 1.25 mg SLOW IVP Q6HR [facility] Guaifenesin (Robitussin Sf) 200 mg PO Q4H PRN PRN Reason: Cough Hydralazine HCl (Apresoline) 10 mg SLOW IVP Q4H PRN PRN Reason: Systolic BP > 180 Nitroglycerin/Dextrose (Nitroglycerin 50 Mg/250 Ml Bot) 250 mls @ 0 mls/hr IVPB INF [facility]A; As Directed PRN Reason: Protocol Lactated Ringer's (Lactated Ringer's) 1,000 mls @ 999 mls/hr IV .Q1H1M [facility] Stop: 03/14/17 13:30 Sodium Chloride (1/2 Normal Saline) 1,000 mls @ 100 mls/hr IV .Q10H [facility] Labetalol HCl (Normodyne) 20 mg SLOW IVP Q1H PRN PRN Reason: BP > 220/110 Loperamide HCl (Imodium) 2 mg PO PRN PRN PRN Reason: Diarrhea/Loose Stools Loratadine (Claritin) 10 mg PO DAILYPRN PRN PRN Reason: Sinus Symptoms Magnesium Hydroxide (Milk Of Magnesium) 30 ml PO DAILYPRN PRN PRN Reason: Constipation Metoprolol Tartrate (Lopressor) 5 mg IVP Q4HR [facility] Last Admin: 03/14/17 10:20 Dose: 5 mg Mineral Oil/White Petrolatum (Eucerin Cream) 0 gm TOP BIDPRN PRN PRN Reason: Dry Skin Nitroglycerin (Nitrostat) 0.4 mg SL Q5MIN PRN PRN Reason: Chest Pain Ondansetron HCl (Zofran Odt) 4 mg PO Q6H PRN PRN Reason: Nausea/Vomiting Ondansetron HCl (Zofran) 4 mg IVP Q6H PRN PRN Reason: Nausea/Vomiting Phenol (Chloraseptic [place] 180 Ml Bot) 0 ml PO PRN PRN PRN Reason: Sore Throat Senna (Senokot) 2 tab PO HSPRN PRN PRN Reason: Constipation Sodium Chloride ([place] Nasal [place] 0.65%) 0 ml EA NARE QIDPRN PRN PRN Reason: Nasal Congestion
--- NOTE | 2017-03-14 12:13 | CON ---
DATE OF CONSULTATION: 03/14/2017 SERVICE: Pulmonary Medicine. REASON FOR CONSULTATION: ICU patient. HISTORY OF PRESENT ILLNESS: The patient is a 76-year-old -[place] male with past medical history significant for stroke. Baseline, he is essentially bed bound, or confined to a wheelchair. He has very poor functional status. He is supposed to be taking care of himself at home with family lives close by. That being said, he really does not have the ability to feed himself or water himself. It is not clear whether or not he has been able to take any of his medications. In other way, he came into the hospital with increasing altered mentation. He is profoundly dehydrated. He cannot provide any additional elements of the history right now because of encephalopathy. PAST MEDICAL HISTORY: 1. Cerebrovascular accident. 2. Debility. 3. Chronic systolic heart failure. 4. Dyslipidemia. 5. Coronary artery disease. 6. Gastroesophageal reflux disease. 7. Paroxysmal atrial fibrillation. PAST SURGICAL HISTORY: 1. AICD placement in 2004 for history of V-TACH. 2. Cardiac catheterization in 2002. 3. Transurethral prostate resection in 2004. 4. Left lower extremity leg surgery for compartment syndrome. SOCIAL HISTORY: Unknown. FAMILY HISTORY: Unknown, but likely noncontributory. ALLERGIES: No known drug allergies. MEDICATIONS: List of his inpatient medications was reviewed. Multiple updates were made at this time. REVIEW OF SYSTEMS: This cannot be obtained as the patient is currently encephalopathic. PHYSICAL EXAMINATION: VITAL SIGNS: Afebrile, pulse 84, blood pressure 129/93, respirations 19, saturation 97% on room air. GENERAL: The patient is awake, alert, in no apparent distress. LUNGS: Excellent air entry. There is no prolonged expiratory phase or wheezing present. HEART: Normal rate, regular. ABDOMEN: Soft, nontender, and nondistended. Bowel sounds are positive. MUSCULOSKELETAL: No cyanosis or clubbing. No pitting in the bilateral lower extremities. He demonstrates skin tenting throughout. GENITOURINARY: No Bucio. NEUROLOGIC: Grossly nonfocal. LABORATORY DATA: WBC 11.1, hemoglobin 17.8, and platelets 281,000. Band count is 2%. INR 0.2. Creatinine 1.81, BUN 35. Chloride 116. Sodium 150 and up trending. Liver function studies are unremarkable. Troponin is up trending to 0.337. Lactate is down trending from 4.3-2.8. Urinalysis is unremarkable except for moderate blood despite negative RBCs. Blood cultures x2 were unremarkable. Influenza A and B are negative. IMAGIN. Carotid Doppler demonstrates no hemodynamically significant stenosis. 2. CT of the brain demonstrates areas of prior infarction noted bilaterally. No evidence for intracranial hemorrhage. Findings are suggestive of possible infarct near the vertex on the right involving the right frontal lobe. ASSESSMENT: 1. Dehydration, severe. 2. Cerebrovascular accident. 3. Debility, severe. 4. Metabolic encephalopathy. 5. Hypernatremia. 6. Acute kidney injury. PLAN: We will give the patient 2 liters of fluid and I will start him off at 1/ 2 normal saline at 0100 hours if patient is not able to tolerate any p.o. As he has been extraordinarily labile here recently, he can be considered for transition to the stroke unit. Pulmonary or Critical Care will continue to follow while he remains in this location. 70 minutes have been devoted to this patient in various activities. I personally reviewed all imaging studies and laboratory data noted within this document. For at least half of this time, I was interacting with the patient at the bedside or coordinating care with the care team. For the remainder of the time I was immediately available to the patient in the hospital unit. LUIS
[2017-03-14] MEDS: Sodium Chloride 0.45% 1,000 ML IV SCH (13:03)
[2017-03-14] MEDS: Enalaprilat Dihydrate 1.25 MG/ML VIAL SLOW IVP SCH ×2 (13:04→19:04)
[2017-03-14] MEDS ORDERED: Nitroglycerin 2% Ointment 1 INCH/1 GM Packet TOP SCH (14:00)
[2017-03-14] MEDS ORDERED: Labetalol HCl 100 MG/20 ML VIAL SLOW IVP PRN (15:31)
[2017-03-14] MEDS: Labetalol HCl 100 MG/20 ML VIAL SLOW IVP PRN ×2 (16:03→17:24)
[2017-03-14] MEDS: Carvedilol 25 MG TAB PO SCH (16:18)
--- NOTE | 2017-03-14 18:57 | CON ---
DATE OF CONSULTATION: 03/14/2017 REFERRING PHYSICIAN: Magnolia Mathias MD REASON FOR CONSULTATION: Acute onset left-sided weakness. HISTORY OF PRESENT ILLNESS: Mr. Hernandez is a 76-year-old female , who has been considered for evaluation of acute onset left-sided weakness. History is obtained from patient's medical chart as well as our nurses taking care of the patient. Apparently, the patient has a history of left MCA stroke, which has resulted in mild expressive aphasia at baseline. He has some difficulty with expressing himself. He is still able to move both upper and lower extremities without any difficulty. He is able to walk independently and he is able to drive and carry out his activities of daily living without any difficulty. He lives alone. He was apparently found by a family member to be weak on his left side, which prompted the family members to bring him to the hospital. PAST MEDICAL HISTORY, PAST SURGICAL HISTORY, SOCIAL HISTORY, FAMILY HISTORY, CURRENT MEDICATIONS, ALLERGIES: Reviewed and there as dictated H and P note done by Dr. Mathias. REVIEW OF SYSTEMS: Could not be obtained. PHYSICAL EXAMINATION: VITAL SIGNS: Blood pressure of 166/88, pulse of 83, temperature of 99.2, respirations of 14, O2 sats of 98% on room air. GENERAL: Well-developed, well-nourished male, in no apparent distress. RESPIRATORY: Clear to auscultation bilaterally. CARDIOVASCULAR: Regular rate and rhythm. NEUROLOGIC: Mental status: The patient is awake, alert, but incoherent and not able to follow any commands. Speech and language is mute. He does not follow any commands. Cranial nerves: Pupils are 3 mm and reactive. He is able to track me around the room. Visual ruiz are full to threat. He has a left facial droop noted. Motor exam showed flaccid left upper and left lower extremity. He has 0/5 strength in the left upper and left lower extremity. He is spontaneously moving the right upper and right lower extremity. He withdraws to pain in both upper and lower extremities. LABORATORY DATA: Reviewed, which included CBC, coag panel, CMP, troponin, BNP, CPK, lipid profile, and urinalysis, which is significant for white cell count of 11.1. Sodium of 150, BUN of 35, creatinine of 1.81, glucose of 129, lactic acid 2.8, troponin of 0.337, otherwise unremarkable. Imaging Studies: CT head without contrast was reviewed which showed encephalomalacia involving the left MCA distribution suggestive of prior ischemic infarct. It also showed hypoattenuation in the right posterior frontal and parietal region suggestive of acute to subacute ischemic infarct. IMPRESSION: 1. Acute right middle cerebral artery distribution ischemic infarct. 2. Left hemiparesis, due to #1. 3. Hypertension. 4. History of atrial fibrillation, on Eliquis. ASSESSMENT AND PLAN: Mr. Hernandez is a pleasant 76-year-old male who presented with an acute onset of left hemiparesis. His CT head without contrast does show hypodensity involving the right MCA distribution suggestive of acute to subacute ischemic infarct. This event is likely cardioembolic in origin. At this time, I would recommend restarting him back on Eliquis. He will need PT, OT, speech evaluation. He is to be n.p.o. until further cleared by Speech Therapy. Continue supportive care. Continue current medical management. Thank you for consultation. LUIS
[2017-03-14] MEDS ORDERED: Atorvastatin Calcium 20 MG TAB PO SCH (21:00)
[2017-03-15] MEDS: Enalaprilat Dihydrate 1.25 MG/ML VIAL SLOW IVP SCH ×4 (00:28→17:49)
[2017-03-15] MEDS: Sodium Chloride 0.45% 1,000 ML IV SCH ×3 (00:37→12:06)
[2017-03-15 04:32] LABS: Anion Gap 16 mmol/L (10-20); BUN (Urea Nitrogen) 35 mg/dL (8.4-25.7); Calc. Creatinine Clearance 36 mL/min (70-130); Calcium 9.5 mg/dL (7.8-10.44); Carbon Dioxide 20 mmol/L (23-31); Chloride 117 mmol/L (98-107); Estimated GFR-MDRD 52; Glucose 119 mg/dL (83-110); Potassium 3.5 mmol/L (3.5-5.1); Sodium 149 mmol/L (136-145)
[2017-03-15] MEDS ORDERED: Fleet Enema 133 ML BOT PR PRN (07:32)
[2017-03-15] MEDS ORDERED: Bisacodyl 10 MG SUPP PR PRN (07:32)
[2017-03-15] MEDS ORDERED: Famotidine/PF 20 mg/2ml Vial SLOW IVP PRN (07:32)
[2017-03-15] MEDS ORDERED: Acetaminophen 650 MG Suppository PR PRN (07:32)
[2017-03-15] MEDS: Apixaban 5 MG TAB PO SCH ×2 (09:12→13:03)
[2017-03-15] MEDS: Allopurinol 100 MG TAB PO SCH (09:12)
[2017-03-15] MEDS: Aspirin 300 MG Suppository PR SCH (09:12)
[2017-03-15] MEDS: Carvedilol 25 MG TAB PO SCH ×2 (09:12→13:04)
--- NOTE | 2017-03-15 10:57 | PRG ---
DATE OF SERVICE: 03/15/2017 SERVICE: Pulmonary Medicine. INTERVAL HISTORY: The patient is doing great from a respiratory standpoint. He denies any current f paul, chills, nausea, vomiting or chest discomfort. Otherwise, there has been no interval change to his condition. His mentation has been working up a little bit. His dehydration is actually much im proved. His blood pressure is under better control. There were otherwise no acute events. His nitro drip has been discontinued. PHYSICAL EXAMINATION: VITAL SIGNS: Afebrile, pulse 84, blood pressure 125/77, respirations 19, saturation 100% on room air . GENERAL: The patient is awake and alert, in no apparent distress. LUNGS: Decent air entry. No crackles are appreciated. He has severe central sleep apnea with Cheyn e-Miller respiratory pattern. HEENT: Normocephalic, atraumatic. Sclerae are white, conjunctivae pink. Oral and nasal mucosa is m oist without lesions. LUNGS: Good air entry. No prolonged expiratory phase, wheezing, rhonchi or crackles. HEART: Normal rate, regular. ABDOMEN: Soft, nontender, nondistended. Bowel sounds are positive. MUSCULOSKELETAL: No cyanosis or clubbing. There is no pitting. Tenting has improved a little bit. GENITOURINARY: Bucio catheter in place. LABORATORY DATA: Creatinine 1.56 and down trending. BUN 35, bicarbonate 20, chloride 117, and sodiu m 149. Magnesium and phosphorus fall within the normal limits. Lactate has cleared. One out of two blood cultures are growing coag negative staph. Urine culture is negative to date as of the en . ASSESSMENT: 1. Dehydration, severe. 2. Cerebrovascular accident, recurrent. 3. Debility at baseline with new large stroke. 4. Metabolic encephalopathy, improving. 5. Hypernatremia. 6. Acute kidney injury, improving. PLAN: We will continue our free water over the next 24 hours. At this point, he is stable for trans ition out of the ICU to the Stroke Unit. That being said, he remains at extraordinarily high risk fo r aspiration related disease as the patient is not able to clear his airway, or effectively coughed u p from his airway. Additionally, he cannot eat. If it would be in keeping with his values, he can p roceed with PEG tube. If he ever gets intubated, tracheostomy will need to be performed. Goals of c are need to be discussed moving forward because it would be reasonable for us to transition over to c omfort care only if that would be with the patient's wishes under these circumstances. For the time being, hold off on tube feeds, but some form of nutrition will need to be initiated in 2-3 days if th e family chooses to be aggressive.
--- NOTE | 2017-03-15 12:08 | RAD ---
ABDOMEN 1 VIEW: HISTORY: A 76-year-old male with Dobbhoff tube position verification. FINDINGS: A Dobbhoff tube has been placed with the tip in the region of the body of the stomach. IMPRESSION: Dobbhoff tube with the tip in the stomach. POS: RANDY
--- NOTE | 2017-03-15 12:58 | PDOC.PN ---
- Subjective Encounter Start Date: 03/15/17 Encounter Start Time: 09:40 -: non-verbal Patient seen and examined.No overnight events pt is not able to swallow pt has oral secretion requires, frequent suctioning - Objective Resuscitation Status: Resuscitation Status FULL:Full Resuscitation MAR Reviewed: Yes Vital Signs & Weight: Vital Signs (12 hours) Temp BP 03/15/17 12:06 173/110 H 03/15/17 12:00 98.5 F 03/15/17 07:00 98.2 F 03/15/17 06:09 125/77 03/15/17 04:00 98.7 F Weight Admit Weight 143 lb Weight 143 lb 15.39 oz Most Recent Monitor Data Heart Rate from ECG 83 NIBP 173/110 NIBP BP-Mean 132 Respiration from ECG 23 SpO2 100 I&O: 03/14/17 03/15/17 03/16/17 06:59 06:59 06:59 Intake Total 39.5 3661.5 Output Total 615 1067 290 Balance -575.5 2594.5 -290 Result Diagrams: 03/13/17 16:23 03/15/17 03:58 EKG Reviewed by me: Yes (nsr) Phys Exam - Physical Examination Constitutional: NAD HEENT: PERRLA, sclera anicteric dry MM Neck: no JVD, supple Respiratory: no wheezing, no rales, no rhonchi Cardiovascular: RRR, no significant murmur, no rub Gastrointestinal: soft, non-tender, no distention, positive bowel sounds Musculoskeletal: no edema, pulses present unable to assess as pt is not co-operative Psychiatric: normal affect Skin: no rash, normal turgor Dx/Plan (1) Acute CVA (cerebrovascular accident) Code(s): I63.9 - CEREBRAL INFARCTION, UNSPECIFIED Status: Acute Comment: acute infarction of right frontal lobe (2) Acute on chronic combined systolic and diastolic congestive heart failure Code(s): I50.43 - ACUTE ON CHRONIC COMBINED SYSTOLIC AND DIASTOLIC HRT FAIL Status: Acute (3) Acute worsening of stage 3 chronic kidney disease Code(s): N18.3 - CHRONIC KIDNEY DISEASE, STAGE 3 (MODERATE) Status: Acute (4) Elevated troponin Code(s): R74.8 - ABNORMAL LEVELS OF OTHER SERUM ENZYMES Status: Acute (5) Hypernatremia Code(s): E87.0 - HYPEROSMOLALITY AND HYPERNATREMIA Status: Acute (6) Atrial fibrillation Code(s): I48.91 - UNSPECIFIED ATRIAL FIBRILLATION Status: Chronic Qualifiers: Atrial fibrillation type: paroxysmal (7) CKD (chronic kidney disease) stage 3, GFR 30-59 ml/min Code(s): N18.3 - CHRONIC KIDNEY DISEASE, STAGE 3 (MODERATE) Status: Chronic (8) Chronic anticoagulation Code(s): Z79.01 - NURSING HOME (CURRENT) USE OF ANTICOAGULANTS Status: Chronic (9) Dyslipidemia Code(s): E78.5 - HYPERLIPIDEMIA, UNSPECIFIED Status: Chronic (10) GERD (gastroesophageal reflux disease) Code(s): K21.9 - GASTRO-ESOPHAGEAL REFLUX DISEASE WITHOUT ESOPHAGITIS Status: Chronic (11) History of CVA (cerebrovascular accident) Code(s): Z86.73 - PRSNL HX OF TIA (TIA), AND CEREB INFRC W/O RESID DEFICITS Status: Chronic (12) History of cardiomyopathy Code(s): Z86.79 - PERSONAL HISTORY OF OTHER DISEASES OF THE CIRCULATORY SYSTEM Status: Chronic (13) Hypertension Code(s): I10 - ESSENTIAL (PRIMARY) HYPERTENSION Status: Chronic (14) Left ventricular apical thrombus Code(s): SNS4737 - Status: Chronic (15) NSVT (nonsustained ventricular tachycardia) Code(s): I47.2 - VENTRICULAR TACHYCARDIA Status: Chronic (16) PVD (peripheral vascular disease) Code(s): I73.9 - PERIPHERAL VASCULAR DISEASE, UNSPECIFIED Status: Chronic - Plan cont current plan of care * will place dubhuff tube today * start tube feeding as ordered today * if he tolerates tube feeding, will reduce IVF and then heplock * water via peg tube * all medication ordered via dubhuff tube * if oral secretion is too much, will add scopolamine patch * today will monitor in CCU * medication reviewed as below * symptomatic treatment. Review of Systems - Review of Systems Other: unable to review due to nonverbal status and cognitive status - Medications/Allergies Allergies/Adverse Reactions: Allergies Allergy/AdvReac Type Severity Reaction Status Date / Time No Known Allergies Allergy Verified 03/13/17 22:56 Medications: Current Medications Acetaminophen (Tylenol) 650 mg PO Q4H PRN PRN Reason: Headache/Fever or Mild Pain Acetaminophen (Tylenol) 650 mg CO Q4H PRN PRN Reason: Headache/Fever or Mild Pain Hydrocodone Bitart/Acetaminophen ([place] 5/325) 1 tab PO Q4H PRN PRN Reason: Moderate Pain (4-6) Al Hydroxide/Mg Hydroxide (Maalox) 15 ml PO Q4H PRN PRN Reason: Heartburn or Indigestion Albuterol Sulfate (Proventil Hfa) 1 puff INH Q4HR PRN PRN Reason: SOB &/or Wheezing Allopurinol (Zyloprim) 100 mg PO DAILY [facility] Last Admin: 03/15/17 09:12 Dose: Not Given Apixaban (Eliquis) 5 mg PO BID [facility] Last Admin: 03/15/17 09:12 Dose: Not Given Artificial Tears (Tears Naturale) 0 drop EA EYE PRN PRN PRN Reason: Dry Eyes Aspirin (Aspirin Chewable) 81 mg PO DAILY [facility] Last Admin: 03/15/17 09:12 Dose: Not Given Aspirin (Aspirin) 300 mg CO DAILY [facility] Last Admin: 03/15/17 09:12 Dose: Not Given Atorvastatin Calcium (Lipitor) 40 mg PO HS [facility] Last Admin: 03/14/17 19:50 Dose: Not Given Bisacodyl (Dulcolax) 10 mg CO DAILYPRN PRN PRN Reason: Constipation Carvedilol (Coreg) 25 mg PO BID[facility] Last Admin: 03/15/17 09:12 Dose: Not Given Enalaprilat (Vasotec) 1.25 mg SLOW IVP Q6HR [facility] Last Admin: 03/15/17 12:06 Dose: 1.25 mg Famotidine (Pepcid) 20 mg SLOW IVP DAILY PRN PRN Reason: Heartburn or Indigestion Guaifenesin (Robitussin Sf) 200 mg PO Q4H PRN PRN Reason: Cough Hydralazine HCl (Apresoline) 10 mg SLOW IVP Q4H PRN PRN Reason: Systolic BP > 180 Nitroglycerin/Dextrose (Nitroglycerin 50 Mg/250 Ml Bot) 250 mls @ 0 mls/hr IVPB INF [facility]; As Directed PRN Reason: Protocol Sodium Chloride (1/2 Normal Saline) 1,000 mls @ 100 mls/hr IV .Q10H [facility] Last Admin: 03/15/17 12:06 Dose: 1,000 mls Labetalol HCl (Normodyne) 20 mg SLOW IVP Q30MIN PRN PRN Reason: TO KEEP SYS BETWEEN 140-160 Last Admin: 03/14/17 17:24 Dose: 20 mg Loperamide HCl (Imodium) 2 mg PO PRN PRN PRN Reason: Diarrhea/Loose Stools Loratadine (Claritin) 10 mg PO DAILYPRN PRN PRN Reason: Sinus Symptoms Magnesium Hydroxide (Milk Of Magnesium) 30 ml PO DAILYPRN PRN PRN Reason: Constipation Mineral Oil/White Petrolatum (Eucerin Cream) 0 gm TOP BIDPRN PRN PRN Reason: Dry Skin Nitroglycerin (Nitrostat) 0.4 mg SL Q5MIN PRN PRN Reason: Chest Pain Ondansetron HCl (Zofran Odt) 4 mg PO Q6H PRN PRN Reason: Nausea/Vomiting Ondansetron HCl (Zofran) 4 mg IVP Q6H PRN PRN Reason: Nausea/Vomiting Phenol (Chloraseptic [place] 180 Ml Bot) 0 ml PO PRN PRN PRN Reason: Sore Throat Senna (Senokot) 2 tab PO HSPRN PRN PRN Reason: Constipation Sodium Biphosphate/Sodium Phosphate (Fleet Enema) 133 ml CO ONE PRN PRN Reason: Constipation Stop: 03/18/17 07:33 Sodium Chloride ([place] Nasal [place] 0.65%) 0 ml EA NARE QIDPRN PRN PRN Reason: Nasal Congestion
[2017-03-15] MEDS ORDERED: Senokot 8.6 MG TAB PER TUBE PRN (13:15)
[2017-03-15] MEDS ORDERED: Diabetic Tussin 200 MG/10 ML UDCUP PER TUBE PRN (13:15)
[2017-03-15] MEDS ORDERED: HYDROcodone/Acetaminophen 5/325 mg Tablet PER TUBE PRN (13:15)
[2017-03-15] MEDS ORDERED: Milk Of Magnesia 30 ML UDCUP PER TUBE PRN (13:15)
[2017-03-15] MEDS ORDERED: Mag-Al 1200 mg/1200 mg/30 ML UDCUP PER TUBE PRN (13:15)
[2017-03-15] MEDS ORDERED: Ondansetron ODT 4 MG TAB PER TUBE PRN (13:15)
[2017-03-15] MEDS ORDERED: Loratadine 10 MG TAB PER TUBE PRN (13:15)
[2017-03-15] MEDS ORDERED: Loperamide HCl 2 MG CAP PER TUBE PRN (13:15)
[2017-03-15] MEDS: hydrALAZINE 20 MG/ML VIAL SLOW IVP PRN (14:04)
--- NOTE | 2017-03-15 15:07 | EKG ---
Test Reason : Blood Pressure : / mmHG Vent. Rate : 103 BPM Atrial Rate : 103 BPM P-R Int : 134 ms QRS Dur : 072 ms QT Int : 340 ms P-R-T Axes : 065 008 246 degrees QTc Int : 445 ms Sinus tachycardia with Premature supraventricular complexes with occasional Premature ventricular com plexes Biatrial enlargement Abnormal ECG No ST elevation/NE Confirmed by ZARINA CR MD ([id number]), editor dictionary PATRICE MACHUCA ([id number]) on 03/15/2017 3:07:00 PM Referred By: Confirmed By:ZARINA CR MD
[2017-03-15] MEDS: Atorvastatin Calcium 20 MG TAB PER TUBE SCH (21:28)
[2017-03-15] MEDS: Acetaminophen 325 MG TAB PER TUBE PRN (21:29)
[2017-03-15] MEDS: Apixaban 5 MG TAB PER TUBE SCH (21:29)
[2017-03-15] MEDS: Carvedilol 25 MG TAB PER TUBE SCH (21:29)
[2017-03-16] MEDS: Enalaprilat Dihydrate 1.25 MG/ML VIAL SLOW IVP SCH ×4 (03:10→17:34)
[2017-03-16] MEDS: Sodium Chloride 0.45% 1,000 ML IV SCH (04:02)
[2017-03-16 04:42] LABS: Anion Gap 13 mmol/L (10-20); BUN (Urea Nitrogen) 37 mg/dL (8.4-25.7); Calc. Creatinine Clearance 37 mL/min (70-130); Calcium 9.2 mg/dL (7.8-10.44); Carbon Dioxide 20 mmol/L (23-31); Chloride 117 mmol/L (98-107); Estimated GFR-MDRD 54; Glucose 156 mg/dL (83-110); Potassium 3.6 mmol/L (3.5-5.1); Sodium 146 mmol/L (136-145)
[2017-03-16] MEDS: Allopurinol 100 MG TAB PER TUBE SCH (09:17)
[2017-03-16] MEDS: Carvedilol 25 MG TAB PER TUBE SCH ×2 (09:18→17:15)
[2017-03-16] MEDS: Aspirin 300 MG Suppository PR SCH (09:19)
[2017-03-16] MEDS: Apixaban 5 MG TAB PER TUBE SCH (09:26)
--- NOTE | 2017-03-16 09:29 | PRG ---
DATE OF SERVICE: 03/16/2017 SERVICE: Pulmonary Medicine. INTERVAL HISTORY: The patient is doing great from a respiratory standpoint. That being said, he can not clear his airway. Whenever he coughs, we have to go back into the back of his throat and suction out whatever he gets up. Without this aggressive intervention, he would likely go on to develop pne umonia fairly abruptly. That being said, he is in a neuro chair today. For the most part, he is malik erating tube feeds. As such, we will advance. There are no events overnight. PHYSICAL EXAMINATION: VITAL SIGNS: Afebrile, pulse 60, blood pressure 149/88, respirations 13, saturation 100% on 2 liters nasal cannula. GENERAL: The patient is awake, alert, in no apparent distress. LUNGS: Decent air entry. Rhonchi are present. No prolonged expiratory phase or wheezing is appreci ated. HEART: Normal rate, regular. ABDOMEN: Soft, nontender, nondistended. Bowel sounds are positive. MUSCULOSKELETAL: No cyanosis or clubbing. There is no pitting in the bilateral lower extremities. NEUROLOGIC: Grossly nonfocal. LABORATORY DATA: Shows sodium 146 and down trending. Chloride 117. Creatinine 1.53 and down trendi ng. Basic metabolic profile is, otherwise, unremarkable, and 1/2 blood cultures is growing multiple organisms. The other one is sterile to date. Urine cultures negative. IMAGING: Abdominal x-ray demonstrates Dobbhoff tube with the tip in the stomach. ASSESSMENT: 1. Cerebrovascular accident. 2. Debility, severe. 3. Metabolic encephalopathy, resolved. 4. Hypernatremia, improving. 5. Acute kidney injury, resolved to baseline. 6. Dehydration, resolved. PLAN: We will increase free water in the tube feeds. IV fluids will be interrupted. The patient is stable for transition to the stroke unit, though he is at extraordinarily high risk for aspiration-r elated disease. If he goes on to develop an aspiration event and requires intubation, tracheostomy s hould be performed. In 2-3 days, if the patient is making no progress in swallowing, the family has already told me that they would like to pursue a PEG tube. The daughter is suggesting that she would like to support him in his current condition for the rest of his life. The son is suggesting that a fter 6 weeks, if he has not made a significant progress neurologically, that he believes his father pamela cantrell prefer to transition over to comfort care. Either way, both are suggesting that we need to supp ort for a total duration of 6 weeks.
--- NOTE | 2017-03-16 11:31 | PDOC.PN ---
- Subjective Encounter Start Date: 03/16/17 Encounter Start Time: 10:00 Patient seen and examined. No overnight events - Objective Resuscitation Status: Resuscitation Status FULL:Full Resuscitation MAR Reviewed: Yes Vital Signs & Weight: Vital Signs (12 hours) Temp Pulse Resp BP Pulse Ox 03/16/17 08:00 98.1 F 82 21 H 99 03/16/17 06:51 100 03/16/17 06:36 151/100 H 03/16/17 04:00 99.0 F 03/16/17 03:10 162/84 H 03/16/17 00:00 99.3 F Weight Admit Weight 143 lb Weight 144 lb 9.972 oz Most Recent Monitor Data Heart Rate from ECG 82 NIBP 184/89 NIBP BP-Mean 115 Respiration from ECG 27 SpO2 99 I&O: 03/15/17 03/16/17 03/17/17 06:59 06:59 06:59 Intake Total 3661.5 3421 60 Output Total 1067 1100 145 Balance 2594.5 2321 -85 Result Diagrams: 03/13/17 16:23 03/16/17 03:34 EKG Reviewed by me: Yes (nsr) Phys Exam - Physical Examination Constitutional: NAD HEENT: PERRLA, sclera anicteric dry MM dubhuff tube+ Neck: no JVD, supple Respiratory: no wheezing, no rales, no rhonchi Cardiovascular: RRR, no significant murmur, no rub Gastrointestinal: soft, non-tender, no distention, positive bowel sounds Musculoskeletal: no edema, pulses present left side weakness Lymphatic: no nodes Skin: no rash, normal turgor Dx/Plan (1) Acute CVA (cerebrovascular accident) Code(s): I63.9 - CEREBRAL INFARCTION, UNSPECIFIED Status: Acute Comment: acute infarction of right frontal lobe (2) Oropharyngeal dysphagia Code(s): R13.12 - DYSPHAGIA, OROPHARYNGEAL PHASE Status: Acute (3) Acute metabolic encephalopathy Code(s): G93.41 - METABOLIC ENCEPHALOPATHY Status: Acute (4) Acute worsening of stage 3 chronic kidney disease Code(s): N18.3 - CHRONIC KIDNEY DISEASE, STAGE 3 (MODERATE) Status: Acute (5) Hypernatremia Code(s): E87.0 - HYPEROSMOLALITY AND HYPERNATREMIA Status: Acute (6) Elevated troponin Code(s): R74.8 - ABNORMAL LEVELS OF OTHER SERUM ENZYMES Status: Acute (7) Atrial fibrillation Code(s): I48.91 - UNSPECIFIED ATRIAL FIBRILLATION Status: Chronic Qualifiers: Atrial fibrillation type: paroxysmal (8) CKD (chronic kidney disease) stage 3, GFR 30-59 ml/min Code(s): N18.3 - CHRONIC KIDNEY DISEASE, STAGE 3 (MODERATE) Status: Chronic (9) Chronic anticoagulation Code(s): Z79.01 - MCFP (CURRENT) USE OF ANTICOAGULANTS Status: Chronic (10) Dyslipidemia Code(s): E78.5 - HYPERLIPIDEMIA, UNSPECIFIED Status: Chronic (11) GERD (gastroesophageal reflux disease) Code(s): K21.9 - GASTRO-ESOPHAGEAL REFLUX DISEASE WITHOUT ESOPHAGITIS Status: Chronic (12) History of CVA (cerebrovascular accident) Code(s): Z86.73 - PRSNL HX OF TIA (TIA), AND CEREB INFRC W/O RESID DEFICITS Status: Chronic (13) History of cardiomyopathy Code(s): Z86.79 - PERSONAL HISTORY OF OTHER DISEASES OF THE CIRCULATORY SYSTEM Status: Chronic (14) Hypertension Code(s): I10 - ESSENTIAL (PRIMARY) HYPERTENSION Status: Chronic (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 Code(s): CPX8675 - Status: Chronic (16) NSVT (nonsustained ventricular tachycardia) Code(s): I47.2 - VENTRICULAR TACHYCARDIA Status: Chronic (17) PVD (peripheral vascular disease) Code(s): I73.9 - PERIPHERAL VASCULAR DISEASE, UNSPECIFIED Status: Chronic (18) Chronic combined systolic and diastolic congestive heart failure Code(s): I50.42 - CHRONIC COMBINED SYSTOLIC AND DIASTOLIC HRT FAIL Status: Chronic - Plan cont current plan of care, armendariz catheter, PT/OT, medical social worker, speech therapy * will transfer to [facility] given pt is high risk for aspiration * will consult GI as pt will need PEG tube * stroke team * medication reviewed as below * symptomatic treatment * increase free water via dubhuff * continue tube feeding. Review of Systems - Review of Systems Other: unable to review due to his current cognitive status - Medications/Allergies Allergies/Adverse Reactions: Allergies Allergy/AdvReac Type Severity Reaction Status Date / Time No Known Allergies Allergy Verified 03/13/17 22:56 Medications: Current Medications Acetaminophen (Tylenol) 650 mg NV Q4H PRN PRN Reason: Headache/Fever or Mild Pain Acetaminophen (Tylenol) 650 mg PER TUBE Q4H PRN PRN Reason: Headache/Fever or Mild Pain Last Admin: 03/15/17 21:29 Dose: 650 mg Hydrocodone Bitart/Acetaminophen ([place] 5/325) 1 tab PER TUBE Q4H PRN PRN Reason: Moderate Pain (4-6) Al Hydroxide/Mg Hydroxide (Maalox) 15 ml PER TUBE Q4H PRN PRN Reason: Heartburn or Indigestion Albuterol Sulfate (Proventil Hfa) 1 puff INH Q4HR PRN PRN Reason: SOB &/or Wheezing Allopurinol (Zyloprim) 100 mg PER TUBE DAILY [facility] Last Admin: 03/16/17 09:17 Dose: 100 mg Apixaban (Eliquis) 5 mg PER TUBE BID [facility] Last Admin: 03/16/17 09:26 Dose: 5 mg Artificial Tears (Tears Naturale) 0 drop EA EYE PRN PRN PRN Reason: Dry Eyes Aspirin (Aspirin) 300 mg NV DAILY [facility] Last Admin: 03/16/17 09:19 Dose: Not Given Aspirin (Aspirin Chewable) 81 mg PER TUBE DAILY [facility] Last Admin: 03/16/17 09:18 Dose: 81 mg Atorvastatin Calcium (Lipitor) 40 mg PER TUBE [facility] Last Admin: 03/15/17 21:28 Dose: 40 mg Bisacodyl (Dulcolax) 10 mg NV DAILYPRN PRN PRN Reason: Constipation Carvedilol (Coreg) 25 mg PER TUBE BID[facility] Last Admin: 03/16/17 09:18 Dose: 25 mg Enalaprilat (Vasotec) 1.25 mg SLOW IVP Q6HR [facility] Last Admin: 03/16/17 06:36 Dose: 1.25 mg Famotidine (Pepcid) 20 mg SLOW IVP DAILY PRN PRN Reason: Heartburn or Indigestion Guaifenesin (Robitussin Sf) 200 mg PER TUBE Q4H PRN PRN Reason: Cough Hydralazine HCl (Apresoline) 10 mg SLOW IVP Q4H PRN PRN Reason: Systolic BP > 180 Last Admin: 03/15/17 14:04 Dose: 10 mg Labetalol HCl (Normodyne) 20 mg SLOW IVP Q30MIN PRN PRN Reason: TO KEEP SYS BETWEEN 140-160 Last Admin: 03/14/17 17:24 Dose: 20 mg Loperamide HCl (Imodium) 2 mg PER TUBE PRN PRN PRN Reason: Diarrhea/Loose Stools Loratadine (Claritin) 10 mg PER TUBE DAILYPRN PRN PRN Reason: Sinus Symptoms Magnesium Hydroxide (Milk Of Magnesium) 30 ml PER TUBE DAILYPRN PRN PRN Reason: Constipation Mineral Oil/White Petrolatum (Eucerin Cream) 0 gm TOP BIDPRN PRN PRN Reason: Dry Skin Nitroglycerin (Nitrostat) 0.4 mg SL Q5MIN PRN PRN Reason: Chest Pain Ondansetron HCl (Zofran) 4 mg IVP Q6H PRN PRN Reason: Nausea/Vomiting Ondansetron HCl (Zofran Odt) 4 mg PER TUBE Q6H PRN PRN Reason: Nausea/Vomiting Phenol (Chloraseptic [place] 180 Ml Bot) 0 ml PO PRN PRN PRN Reason: Sore Throat Senna (Senokot) 2 tab PER TUBE HSPRN PRN PRN Reason: Constipation Sodium Biphosphate/Sodium Phosphate (Fleet Enema) 133 ml NV ONE PRN PRN Reason: Constipation Stop: 03/18/17 07:33 Sodium Chloride ([place] Nasal [place] 0.65%) 0 ml EA NARE QIDPRN PRN PRN Reason: Nasal Congestion
--- NOTE | 2017-03-16 20:05 | CON ---
DATE OF CONSULTATION: 03/16/2017 DATE OF ADMISSION: 03/14/2017 CHIEF COMPLAINT: Trouble swallowing. HISTORY OF PRESENT ILLNESS: Mr. Hernandez is a 76-year-old man, who was admitted on 03/13/[address] roke. He has had inability to tolerate oral feeding due to oropharyngeal dysphagia. He is gurgling his secretions and has to be suctioned. He has a Dobbhoff tube in place now and he is tolerating the feeds through there. PAST MEDICAL HISTORY: Past stroke, congestive heart failure with an EF of 45%-50%, hypertension, dys lipidemia, ischemic cardiomyopathy, AICD placement in the past, coronary artery disease with history of OR, gastroesophageal reflux disease, history of splenic and renal infarcts, peripheral vascular di sease. PAST SURGICAL HISTORY: AICD placement, TURP. He had a thrombectomy for a lower extremity thrombus. FAMILY HISTORY: Negative for GI malignancy. HABITS: No alcohol, no drugs. He smoked in the past. ALLERGIES: No known drug allergies. MEDICATIONS: Apixaban, aspirin, carvedilol, atorvastatin, enalapril, famotidine. REVIEW OF SYSTEMS: Cannot be obtained, as the patient is nonverbal. PHYSICAL EXAMINATION: VITAL SIGNS: Temperature 99.0, blood pressure 157/91, pulse 81. GENERAL: He is in no acute distress. He is awake and not verbal. HEENT: Eyes have no scleral icterus. Oropharynx is clear, without lesions. He has a Dobbhoff tube in place. NECK: No cervical or supraclavicular lymphadenopathy. LUNGS: Clear to auscultation bilaterally. HEART: Regular rate and rhythm. ABDOMEN: Soft, nondistended, no guarding. Bowel sounds are present. EXTREMITIES: No lower extremity edema. LABORATORY DATA: White blood cell count 11.1, hemoglobin 17.8, platelets 281. INR 1.2. Sodium 146, potassium 3.6, chloride 117, CO2 of 20, BUN 37, creatinine 1.53. LFTs were normal on 03/14/2017. I NR was 1.2 on 03/14/17. IMPRESSION: 1. Stroke. 2. Oropharyngeal dysphagia secondary to stroke. RECOMMENDATIONS: 1. Hold apixaban. 2. The PEG tube can be done on Friday. We will hold the Eliquis this evening. His last dose was t his morning of 03/16/2017. He will need preprocedure antibiotics per [facility] protocol.
[2017-03-16] MEDS: Labetalol HCl 100 MG/20 ML VIAL SLOW IVP PRN ×2 (20:19→21:47)
[2017-03-16] MEDS: Atorvastatin Calcium 20 MG TAB PER TUBE SCH (20:20)
[2017-03-16] MEDS: Acetaminophen 325 MG TAB PER TUBE PRN (20:20)
[2017-03-16] MEDS: hydrALAZINE 20 MG/ML VIAL SLOW IVP PRN (21:04)
[2017-03-17] MEDS: Enalaprilat Dihydrate 1.25 MG/ML VIAL SLOW IVP SCH ×4 (00:42→17:16)
[2017-03-17 05:57] LABS: #Eosinphils 0.2 thou/uL (0.0-0.7); #Lymphocytes 1.6 thou/uL (1.20-3.40); #Monocytes 0.8 thou/uL (0.11-0.59); #Neutrophils 6.9 thou/uL (1.40-6.50); %Basophils 0.1 % (0.0-1.0); %Eosinophils 2.3 % (0.0-10.0); %Lymphocytes 16.5 % (21.0-51.0); %Monocytes 8.2 % (0.0-10.0); %Neutrophils 72.9 % (42.0-75.0); Hemoglobin 14.6 g/dL (14.0-18.0); Mean Corpuscular HGB CONC 32.5 g/dL (32.0-36.0); Mean Corpuscular Hemoglobin 29.2 pg (27.0-31.0); Mean Corpuscular Volume 89.9 fl (80.0-94.0); Mean Platelet Volume 9.4 fL (7.4-10.4); Platelet Count 174 thou/uL (130-400); RBC Distribution Width 12.9 % (11.5-14.5); White Blood Cell (WBC) Count 9.4 thou/uL (4.8-10.8)
[2017-03-17 06:33] LABS: Anion Gap 12 mmol/L (10-20); BUN (Urea Nitrogen) 30 mg/dL (8.4-25.7); Calc. Creatinine Clearance 44 mL/min (70-130); Calcium 9.6 mg/dL (7.8-10.44); Carbon Dioxide 24 mmol/L (23-31); Chloride 115 mmol/L (98-107); Estimated GFR-MDRD 65; Glucose 160 mg/dL (83-110); Magnesium 2.4 mg/dL (1.6-2.6); Phosphorus 2.2 mg/dL (2.3-4.7); Potassium 3.3 mmol/L (3.5-5.1); Sodium 148 mmol/L (136-145)
[2017-03-17] MEDS: Carvedilol 25 MG TAB PER TUBE SCH ×2 (09:08→17:16)
[2017-03-17] MEDS: Allopurinol 100 MG TAB PER TUBE SCH (09:08)
[2017-03-17] MEDS: Aspirin 300 MG Suppository PR SCH (09:08)
[2017-03-17] MEDS ORDERED: Famotidine 20 MG TAB PER TUBE PRN (11:15)
--- NOTE | 2017-03-17 11:45 | PDOC.PN ---
- Subjective Encounter Start Date: 03/17/17 Encounter Start Time: 08:40 Patient seen and examined. No overnight events - Objective Resuscitation Status: Resuscitation Status FULL:Full Resuscitation MAR Reviewed: Yes Vital Signs & Weight: Vital Signs (12 hours) Temp Pulse Resp BP BP Pulse Ox 03/17/17 08:10 98.2 F 82 14 161/80 H 100 03/17/17 08:00 98.2 F 82 14 100 03/17/17 06:26 131/113 H 03/17/17 04:00 98.9 F 03/17/17 00:42 142/105 H 03/17/17 00:00 98.3 F Weight Admit Weight 143 lb Weight 144 lb 6.444 oz Most Recent Monitor Data Heart Rate from ECG 92 NIBP 131/113 NIBP BP-Mean 118 Respiration from ECG 25 SpO2 96 I&O: 03/16/17 03/17/17 03/18/17 06:59 06:59 06:59 Intake Total 3421 2374 100 Output Total 1100 1215 Balance 2321 1159 100 Result Diagrams: 03/17/17 05:28 03/17/17 05:28 EKG Reviewed by me: Yes (nsr) Phys Exam - Physical Examination Constitutional: NAD HEENT: PERRLA, moist MMs, sclera anicteric dubhuff tube in place Neck: no JVD, supple Respiratory: no wheezing, no rales, no rhonchi Cardiovascular: RRR, no significant murmur, no rub Gastrointestinal: soft, non-tender, no distention, positive bowel sounds Musculoskeletal: no edema, pulses present left side weakness Lymphatic: no nodes Psychiatric: normal affect Skin: no rash, normal turgor Dx/Plan (1) Acute CVA (cerebrovascular accident) Code(s): I63.9 - CEREBRAL INFARCTION, UNSPECIFIED Status: Acute Comment: acute infarction of right frontal lobe (2) Oropharyngeal dysphagia Code(s): R13.12 - DYSPHAGIA, OROPHARYNGEAL PHASE Status: Acute (3) Acute metabolic encephalopathy Code(s): G93.41 - METABOLIC ENCEPHALOPATHY Status: Acute (4) Acute worsening of stage 3 chronic kidney disease Code(s): N18.3 - CHRONIC KIDNEY DISEASE, STAGE 3 (MODERATE) Status: Acute (5) Hypernatremia Code(s): E87.0 - HYPEROSMOLALITY AND HYPERNATREMIA Status: Acute (6) Elevated troponin Code(s): R74.8 - ABNORMAL LEVELS OF OTHER SERUM ENZYMES Status: Acute (7) Atrial fibrillation Code(s): I48.91 - UNSPECIFIED ATRIAL FIBRILLATION Status: Chronic Qualifiers: Atrial fibrillation type: paroxysmal (8) CKD (chronic kidney disease) stage 3, GFR 30-59 ml/min Code(s): N18.3 - CHRONIC KIDNEY DISEASE, STAGE 3 (MODERATE) Status: Chronic (9) Chronic anticoagulation Code(s): Z79.01 - CUSTODIAL (CURRENT) USE OF ANTICOAGULANTS Status: Chronic (10) Dyslipidemia Code(s): E78.5 - HYPERLIPIDEMIA, UNSPECIFIED Status: Chronic (11) GERD (gastroesophageal reflux disease) Code(s): K21.9 - GASTRO-ESOPHAGEAL REFLUX DISEASE WITHOUT ESOPHAGITIS Status: Chronic (12) History of CVA (cerebrovascular accident) Code(s): Z86.73 - PRSNL HX OF TIA (TIA), AND CEREB INFRC W/O RESID DEFICITS Status: Chronic (13) History of cardiomyopathy Code(s): Z86.79 - PERSONAL HISTORY OF OTHER DISEASES OF THE CIRCULATORY SYSTEM Status: Chronic (14) Hypertension Code(s): I10 - ESSENTIAL (PRIMARY) HYPERTENSION Status: Chronic (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 Code(s): [id number] - Status: Chronic (16) NSVT (nonsustained ventricular tachycardia) Code(s): I47.2 - VENTRICULAR TACHYCARDIA Status: Chronic (17) PVD (peripheral vascular disease) Code(s): I73.9 - PERIPHERAL VASCULAR DISEASE, UNSPECIFIED Status: Chronic (18) Chronic combined systolic and diastolic congestive heart failure Code(s): I50.42 - CHRONIC COMBINED SYSTOLIC AND DIASTOLIC HRT FAIL Status: Chronic - Plan cont current plan of care, PT/OT, social media campaign manager, speech therapy * tube feeding increased * elliquis on hold * tomorrow PEG tube * rehab evaluation * if not approved, then he will need SNU * medication reviewed as below * symptomatic treatment. Review of Systems - Review of Systems Other: unable to review due to current cognitive status - Medications/Allergies Allergies/Adverse Reactions: Allergies Allergy/AdvReac Type Severity Reaction Status Date / Time No Known Allergies Allergy Verified 03/13/17 22:56 Medications: Current Medications Acetaminophen (Tylenol) 650 mg DE Q4H PRN PRN Reason: Headache/Fever or Mild Pain Acetaminophen (Tylenol) 650 mg PER TUBE Q4H PRN PRN Reason: Headache/Fever or Mild Pain Last Admin: 03/16/17 20:20 Dose: 650 mg Hydrocodone Bitart/Acetaminophen ([place] 5/325) 1 tab PER TUBE Q4H PRN PRN Reason: Moderate Pain (4-6) Al Hydroxide/Mg Hydroxide (Maalox) 15 ml PER TUBE Q4H PRN PRN Reason: Heartburn or Indigestion Albuterol Sulfate (Proventil Hfa) 1 puff INH Q4HR PRN PRN Reason: SOB &/or Wheezing Allopurinol (Zyloprim) 100 mg PER TUBE DAILY [facility] Last Admin: 03/17/17 09:08 Dose: 100 mg Artificial Tears (Tears Naturale) 0 drop EA EYE PRN PRN PRN Reason: Dry Eyes Aspirin (Aspirin) 300 mg DE DAILY [facility] Last Admin: 03/17/17 09:08 Dose: Not Given Aspirin (Aspirin Chewable) 81 mg PER TUBE DAILY [facility] Last Admin: 03/17/17 09:08 Dose: 81 mg Atorvastatin Calcium (Lipitor) 40 mg PER TUBE [facility] Last Admin: 03/16/17 20:20 Dose: 40 mg Bisacodyl (Dulcolax) 10 mg DE DAILYPRN PRN PRN Reason: Constipation Carvedilol (Coreg) 25 mg PER TUBE BID[facility] Last Admin: 03/17/17 09:08 Dose: 25 mg Enalaprilat (Vasotec) 1.25 mg SLOW IVP Q6HR [facility] Last Admin: 03/17/17 06:26 Dose: 1.25 mg Famotidine (Pepcid) 20 mg PER TUBE DAILY PRN PRN Reason: Heartburn or Indigestion Guaifenesin (Robitussin Sf) 200 mg PER TUBE Q4H PRN PRN Reason: Cough Hydralazine HCl (Apresoline) 10 mg SLOW IVP Q4H PRN PRN Reason: Systolic BP > 180 Last Admin: 03/16/17 21:04 Dose: 10 mg Labetalol HCl (Normodyne) 20 mg SLOW IVP Q30MIN PRN PRN Reason: TO KEEP SYS BETWEEN 140-160 Last Admin: 03/16/17 21:47 Dose: 20 mg Loperamide HCl (Imodium) 2 mg PER TUBE PRN PRN PRN Reason: Diarrhea/Loose Stools Loratadine (Claritin) 10 mg PER TUBE DAILYPRN PRN PRN Reason: Sinus Symptoms Magnesium Hydroxide (Milk Of Magnesium) 30 ml PER TUBE DAILYPRN PRN PRN Reason: Constipation Last Admin: 03/16/17 20:20 Dose: 30 ml Mineral Oil/White Petrolatum (Eucerin Cream) 0 gm TOP BIDPRN PRN PRN Reason: Dry Skin Nitroglycerin (Nitrostat) 0.4 mg SL Q5MIN PRN PRN Reason: Chest Pain Ondansetron HCl (Zofran) 4 mg IVP Q6H PRN PRN Reason: Nausea/Vomiting Ondansetron HCl (Zofran Odt) 4 mg PER TUBE Q6H PRN PRN Reason: Nausea/Vomiting Phenol (Chloraseptic [place] 180 Ml Bot) 0 ml PO PRN PRN PRN Reason: Sore Throat Senna (Senokot) 2 tab PER TUBE HSPRN PRN PRN Reason: Constipation Sodium Biphosphate/Sodium Phosphate (Fleet Enema) 133 ml DE ONE PRN PRN Reason: Constipation Stop: 03/18/17 07:33 Sodium Chloride ([place] Nasal [place] 0.65%) 0 ml EA NARE QIDPRN PRN PRN Reason: Nasal Congestion
[2017-03-17] MEDS ORDERED: Potassium Phosphate 30 MMOL in Sodium Chloride 0.9% 500 ML IVPB SCH (12:30)
--- NOTE | 2017-03-17 12:48 | PRG ---
DATE OF SERVICE: 03/17/2017 SERVICE: Pulmonary Medicine. INTERVAL HISTORY: The patient is doing okay from a respiratory standpoint. He seems to be clearing his secretions a little better. His mouth is dry. Otherwise, there has been no interval change to h is condition. He is tolerating tube feeds just fine. PHYSICAL EXAMINATION: VITAL SIGNS: Afebrile, pulse 82, blood pressure 161/80, respirations 14, and saturation 100% on room air currently. HEENT: Normocephalic, atraumatic. Sclerae are white, conjunctivae pink. Oral and nasal mucosa is m oist without lesions. LUNGS: Decent air entry. There are some minimal rhonchi. There is no wheezing or crackles present. HEART: Normal rate, regular. ABDOMEN: Soft, nontender, nondistended. Bowel sounds positive. MUSCULOSKELETAL: No cyanosis or clubbing. No pitting in the bilateral lower extremities. NEUROLOGIC: Grossly nonfocal. LABORATORY DATA: WBC 9.4, hemoglobin 14.6, platelets 174,000. Sodium is up trending to 148. Potass ium 3.3, chloride 115 and downtrending, BUN is improved to 30, and creatinine is also down trending. Phosphorus 2.2, magnesium 2.4. Urine culture and blood cultures x2 are unremarkable in one out of t wo. The other two are growing some skin bertha. Influenza A and B are negative. ASSESSMENT: 1. Cerebrovascular accident. 2. Debility, severe. 3. Metabolic encephalopathy, stable. 4. Hypernatremia. 5. Acute kidney injury, resolving. 6. Dehydration, resolved. PLAN: I will increase the free water in the free water flushes. Phosphorus and potassium will be re placed today. We will recheck phosphorus level in the morning as well as other electrolytes. Pulmon mayda Critical Care will continue to follow while the patient remains in this location. After his PEG tube is in place, he will be stable for transition out of the hospital. Hopefully, he will going to develop increasing respiratory failure. If he does, tracheostomy needs to be considered, that is wha t the family would want.
--- NOTE | 2017-03-17 13:52 | PRG ---
DATE OF SERVICE: 03/17/2017 Mr. Hernandez has had a stroke. He has a rightward preference gaze. He is not talking, but his family n otes he is more alert. He was seen yesterday regarding PEG tube placement. He was on blood thinners , that is being held today. MEDICATIONS: Tylenol, Maalox, Proventil, citalopram, aspirin, Lipitor, Dulcolax, Coreg, Vasotec, Pep delbert, Normodyne, Imodium. He is on tube feeds. PHYSICAL EXAMINATION: VITAL SIGNS: Temperature 97, pulse 81, blood pressure 163/84. LUNGS: Clear. ABDOMEN: Soft, nontender. LABORATORY STUDIES: White count 9.4, hemoglobin 14.6, platelet count 174. Sodium 148, potassium 3.3 , BUN and creatinine of 31 and 0.29. ASSESSMENT: 1. Status post cerebrovascular accident, request for PEG tube placement. Eliquis is being held now. 2. Prior automatic implantable cardioverter/defibrillator placement. PLAN: PEG tube tomorrow.
[2017-03-17] MEDS: Atorvastatin Calcium 20 MG TAB PER TUBE SCH (20:24)
[2017-03-18] MEDS: Enalaprilat Dihydrate 1.25 MG/ML VIAL SLOW IVP SCH ×4 (00:18→18:36)
[2017-03-18] MEDS: Labetalol HCl 100 MG/20 ML VIAL SLOW IVP PRN (01:32)
[2017-03-18] MEDS: hydrALAZINE 20 MG/ML VIAL SLOW IVP PRN (02:37)
[2017-03-18] MEDS ORDERED: Sodium Bicarbonate Tab 325 MG TAB PER TUBE PRN (03:15)
[2017-03-18] MEDS ORDERED: Pancrelipase DR 12000 1 CAP FS PRN (03:15)
[2017-03-18] MEDS: Carvedilol 25 MG TAB PER TUBE SCH ×2 (05:49→18:36)
[2017-03-18 06:00] LABS: Anion Gap 10 mmol/L (10-20); BUN (Urea Nitrogen) 26 mg/dL (8.4-25.7); Calc. Creatinine Clearance 52 mL/min (70-130); Calcium 9.5 mg/dL (7.8-10.44); Carbon Dioxide 25 mmol/L (23-31); Chloride 116 mmol/L (98-107); Estimated GFR-MDRD 70; Glucose 117 mg/dL (83-110); Phosphorus 3.4 mg/dL (2.3-4.7); Potassium 4.2 mmol/L (3.5-5.1); Sodium 147 mmol/L (136-145)
--- NOTE | 2017-03-18 09:07 | PRG ---
DATE OF SERVICE: 03/18/2017 SUBJECTIVE: Mr. Hernandez remains aphasic as before. He is moving some extremities on the right side. He is not communicative. OBJECTIVE: VITAL SIGNS: Blood pressure is variable 143/82-159/63, pulse 70. LUNGS: Clear. CARDIAC: Normal S1, normal S2. ASSESSMENT: 1. Status post embolic stroke. 2. History of cardiomyopathy. 3. History of hypertension. PLAN: 1. The patient on aspirin 2. He is not currently on anticoagulation. We need to check this with Dr. Holden to see if he thinks anticoagulation is reasonable. Actually, he did recommend Eliquis; however, the patient cannot swall ow. Enoxaparin will be a reasonable alternative if it is going to be well until he can swallow. Alt ernatively, could give Eliquis in the tube.
--- NOTE | 2017-03-18 10:59 | PDOC.PN ---
- Subjective Encounter Start Date: 03/18/17 Encounter Start Time: 07:40 Patient seen and examined. No overnight events - Objective Resuscitation Status: Resuscitation Status FULL:Full Resuscitation MAR Reviewed: Yes Vital Signs & Weight: Vital Signs (12 hours) Temp Pulse Resp BP BP BP Pulse Ox 03/18/17 07:40 97.6 F 69 18 159/63 H 98 03/18/17 05:49 162/67 H 03/18/17 04:00 98.2 F 94 22 H 143/82 H 96 03/18/17 03:02 67 161/77 H 98 03/18/17 02:37 74 180/80 H 03/18/17 01:31 79 22 H 171/97 H 95 03/18/17 00:10 98.2 F 88 22 H 174/82 H 95 Weight Admit Weight 143 lb Weight 161 lb 9 oz Most Recent Monitor Data Heart Rate from ECG 92 NIBP 131/113 NIBP BP-Mean 118 Respiration from ECG 25 SpO2 96 I&O: 03/17/17 03/18/17 03/19/17 06:59 06:59 06:59 Intake Total 2374 1215 Output Total 1215 1500 Balance 1159 -285 Result Diagrams: 03/17/17 05:28 03/18/17 05:17 EKG Reviewed by me: Yes Phys Exam - Physical Examination Constitutional: NAD HEENT: PERRLA, moist MMs, sclera anicteric dubhuff tube+ Neck: no JVD, supple Respiratory: no wheezing, no rales, no rhonchi Cardiovascular: RRR, no significant murmur, no rub Gastrointestinal: soft, non-tender, no distention, positive bowel sounds Musculoskeletal: no edema, pulses present left side weakness Psychiatric: normal affect Skin: no rash, normal turgor Dx/Plan (1) Acute CVA (cerebrovascular accident) Code(s): I63.9 - CEREBRAL INFARCTION, UNSPECIFIED Status: Acute Comment: acute infarction of right frontal lobe (2) Oropharyngeal dysphagia Code(s): R13.12 - DYSPHAGIA, OROPHARYNGEAL PHASE Status: Acute (3) Acute metabolic encephalopathy Code(s): G93.41 - METABOLIC ENCEPHALOPATHY Status: Acute (4) Acute worsening of stage 3 chronic kidney disease Code(s): N18.3 - CHRONIC KIDNEY DISEASE, STAGE 3 (MODERATE) Status: Acute (5) Hypernatremia Code(s): E87.0 - HYPEROSMOLALITY AND HYPERNATREMIA Status: Acute (6) Elevated troponin Code(s): R74.8 - ABNORMAL LEVELS OF OTHER SERUM ENZYMES Status: Acute (7) Atrial fibrillation Code(s): I48.91 - UNSPECIFIED ATRIAL FIBRILLATION Status: Chronic Qualifiers: Atrial fibrillation type: paroxysmal (8) CKD (chronic kidney disease) stage 3, GFR 30-59 ml/min Code(s): N18.3 - CHRONIC KIDNEY DISEASE, STAGE 3 (MODERATE) Status: Chronic (9) Chronic anticoagulation Code(s): 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 Status: Chronic (10) Dyslipidemia Code(s): E78.5 - HYPERLIPIDEMIA, UNSPECIFIED Status: Chronic (11) GERD (gastroesophageal reflux disease) Code(s): K21.9 - GASTRO-ESOPHAGEAL REFLUX DISEASE WITHOUT ESOPHAGITIS Status: Chronic (12) History of CVA (cerebrovascular accident) Code(s): Z86.73 - PRSNL HX OF TIA (TIA), AND CEREB INFRC W/O RESID DEFICITS Status: Chronic (13) History of cardiomyopathy Code(s): Z86.79 - PERSONAL HISTORY OF OTHER DISEASES OF THE CIRCULATORY SYSTEM Status: Chronic (14) Hypertension Code(s): I10 - ESSENTIAL (PRIMARY) HYPERTENSION Status: Chronic (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 Code(s): [id number] - Status: Chronic (16) NSVT (nonsustained ventricular tachycardia) Code(s): I47.2 - VENTRICULAR TACHYCARDIA Status: Chronic (17) PVD (peripheral vascular disease) Code(s): I73.9 - PERIPHERAL VASCULAR DISEASE, UNSPECIFIED Status: Chronic (18) Chronic combined systolic and diastolic congestive heart failure Code(s): I50.42 - CHRONIC COMBINED SYSTOLIC AND DIASTOLIC HRT FAIL Status: Chronic - Plan cont current plan of care, armendariz catheter, PT/OT, socially responsible investment adviser, speech therapy * today plan for PEG * after that will start tube feeding and resume all oral meds including elliquis * then will plan for discharge process to rehab * medication reviewed as below * symptomatic treatment. Review of Systems - Review of Systems Other: unable to review and not reliable due to his level of cognitive status - Medications/Allergies Allergies/Adverse Reactions: Allergies Allergy/AdvReac Type Severity Reaction Status Date / Time No Known Allergies Allergy Verified 03/13/17 22:56 Medications: Current Medications Acetaminophen (Tylenol) 650 mg RI Q4H PRN PRN Reason: Headache/Fever or Mild Pain Acetaminophen (Tylenol) 650 mg PER TUBE Q4H PRN PRN Reason: Headache/Fever or Mild Pain Last Admin: 03/16/17 20:20 Dose: 650 mg Hydrocodone Bitart/Acetaminophen ([place] 5/325) 1 tab PER TUBE Q4H PRN PRN Reason: Moderate Pain (4-6) Al Hydroxide/Mg Hydroxide (Maalox) 15 ml PER TUBE Q4H PRN PRN Reason: Heartburn or Indigestion Albuterol Sulfate (Proventil Hfa) 1 puff INH Q4HR PRN PRN Reason: SOB &/or Wheezing Allopurinol (Zyloprim) 100 mg PER TUBE DAILY [facility] Last Admin: 03/17/17 09:08 Dose: 100 mg Lipase/Protease/[place]ylase ([place] [id number]) 1 cap FS .PER PROTOCOL PRN PRN Reason: TUBE OCCLUSION PROTOCOL Artificial Tears (Tears Naturale) 0 drop EA EYE PRN PRN PRN Reason: Dry Eyes Aspirin (Aspirin) 300 mg RI DAILY [facility] Last Admin: 03/17/17 09:08 Dose: Not Given Aspirin (Aspirin Chewable) 81 mg PER TUBE DAILY [facility] Last Admin: 03/17/17 09:08 Dose: 81 mg Atorvastatin Calcium (Lipitor) 40 mg PER TUBE [facility] Last Admin: 03/17/17 20:24 Dose: 40 mg Bisacodyl (Dulcolax) 10 mg RI DAILYPRN PRN PRN Reason: Constipation Carvedilol (Coreg) 25 mg PER TUBE BID-[facility] Last Admin: 03/18/17 05:49 Dose: 25 mg Enalaprilat (Vasotec) 1.25 mg SLOW IVP Q6HR [facility] Last Admin: 03/18/17 05:49 Dose: 1.25 mg Famotidine (Pepcid) 20 mg PER TUBE DAILY PRN PRN Reason: Heartburn or Indigestion Guaifenesin (Robitussin Sf) 200 mg PER TUBE Q4H PRN PRN Reason: Cough Hydralazine HCl (Apresoline) 10 mg SLOW IVP Q4H PRN PRN Reason: Systolic BP > 180 Last Admin: 03/18/17 02:37 Dose: 10 mg Labetalol HCl (Normodyne) 20 mg SLOW IVP Q30MIN PRN PRN Reason: TO KEEP SYS BETWEEN 140-160 Last Admin: 03/18/17 01:32 Dose: 20 mg Loperamide HCl (Imodium) 2 mg PER TUBE PRN PRN PRN Reason: Diarrhea/Loose Stools Loratadine (Claritin) 10 mg PER TUBE DAILYPRN PRN PRN Reason: Sinus Symptoms Magnesium Hydroxide (Milk Of Magnesium) 30 ml PER TUBE DAILYPRN PRN PRN Reason: Constipation Last Admin: 03/16/17 20:20 Dose: 30 ml Mineral Oil/White Petrolatum (Eucerin Cream) 0 gm TOP BIDPRN PRN PRN Reason: Dry Skin Nitroglycerin (Nitrostat) 0.4 mg SL Q5MIN PRN PRN Reason: Chest Pain Ondansetron HCl (Zofran) 4 mg IVP Q6H PRN PRN Reason: Nausea/Vomiting Ondansetron HCl (Zofran Odt) 4 mg PER TUBE Q6H PRN PRN Reason: Nausea/Vomiting Phenol (Chloraseptic [place] 180 Ml Bot) 0 ml PO PRN PRN PRN Reason: Sore Throat Senna (Senokot) 2 tab PER TUBE HSPRN PRN PRN Reason: Constipation Sodium Bicarbonate (Bicarbonate, Sodium) 650 mg PER TUBE .PER PROTOCOL PRN PRN Reason: ENTERAL TUBE OCCLUSION Sodium Chloride ([place] Nasal [place] 0.65%) 0 ml EA NARE QIDPRN PRN PRN Reason: Nasal Congestion
[2017-03-18] MEDS: Aspirin 300 MG Suppository PR SCH (12:17)
--- NOTE | 2017-03-18 12:20 | PRG ---
DATE OF SERVICE: 03/18/2017 SERVICE: Pulmonary Medicine. INTERVAL HISTORY: The patient is doing really well from a cardiovascular and respiratory standpoint. He is breathing well. His oxygen saturation is 100% on room air. He seems to be protecting his ai rway. Otherwise, there has been no interval change to his condition. It is my understanding he is g oing down for his PEG tube placement today. After this is done, he will be stable for transition out of the hospital. He cannot provide any additional elements of the history. Nursing reports no over night events. PHYSICAL EXAMINATION: VITAL SIGNS: Afebrile, pulse 61, blood pressure 180/79, respirations 20, saturation 99% on room air. GENERAL: The patient is awake and alert. He is in no apparent distress. LUNGS: Decent air entry. There is no prolonged expiratory phase or wheezing. Rhonchi are present. HEART: Normal rate, regular. ABDOMEN: Soft, nontender, nondistended. Bowel sounds are positive. MUSCULOSKELETAL: No cyanosis or clubbing. No pitting in the bilateral lower extremities. NEUROLOGIC: Grossly nonfocal. LABORATORY DATA: Sodium 147, chloride 116, BUN 26, creatinine 1.21. Phosphorus falls within the nor mal limits today. Urine cultures negative x1. Blood cultures negative in one out of two. The other one is growing skin bertha. Influenza is also unremarkable. ASSESSMENT: 1. Cerebrovascular accident. 2. Debility, severe. 3. Metabolic encephalopathy, stable. 4. Hypernatremia, slowly improving. 5. Acute kidney injury, resolved. 6. Dehydration, resolved. DISCUSSION AND PLAN: We will continue our free water at current rate. At some point, we may need to back off of this. I will give him a lab holiday tomorrow morning. After PEG tube was secured, the patient is stable for transition out of the hospital. He is at high risk for respiratory events. If at any point, the patient requires an intubation, tracheostomy should be performed as well as he darrel l have recurrent events in the future.
[2017-03-18] MEDS ORDERED: Fentanyl 100 MCG/2 ML VIAL ONE (13:01)
[2017-03-18] MEDS ORDERED: hydrALAZINE 20 MG/ML VIAL ONE (14:03)
--- NOTE | 2017-03-18 14:30 | OP ---
DATE OF PROCEDURE: 03/18/2017 SURGEON: Nolan Lyman M.D. PREOPERATIVE DIAGNOSES: Cerebrovascular accident. POSTOPERATIVE DIAGNOSES: PEG tube placed by Ponsky pull technique. ANESTHESIA: TIVA. Ancef 2 g IV given. PROCEDURE: Esophagogastroduodenoscopy with PEG. RECOMMENDATIONS: Begin tube feeds in 4 hours. Could use PEG for meds now. I want to keep abdominal binder on the patient was pulling at IVs yesterday and do not want him to pull the PEG out. PROCEDURE IN DETAIL: After the patient was informed of the risks, benefits, possible complications o f endoscopy including perforation, bleeding, reactions to medication and aspiration, informed consent was obtained. The patient brought to endoscopy suite where he was sedated in gradual fashion. Once he was comfortable, a bite block was placed in incisural orifice. The endoscope was advanced throug h the esophagus, stomach and second and third portion of duodenum and slowly removed. There was good visualization of mucosa in forward and retroflexed views. The stomach was normal. The duodenum was normal. The esophagus was normal. Adequate place for PEG tube placement was identified by transill umination and finger indentation. He had a scar from a previous PEG tube just below this area. Afte r the abdomen was prepped and draped and a PEG tube was placed by Ponsky pull technique. Second look confirmed good placement with no complications. The scope was then removed and the stomach was alison ufflated. The patient was brought to the recovery room in stable condition.
[2017-03-18] MEDS: Allopurinol 100 MG TAB PER TUBE SCH (15:42)
[2017-03-18] MEDS ORDERED: Lidocaine 1% PF 5 ML VIAL ONE (16:06)
[2017-03-18] MEDS ORDERED: Propofol 200 MG/20 ML VIAL ONE (16:06)
[2017-03-18] MEDS: Atorvastatin Calcium 20 MG TAB PER TUBE SCH (20:03)
[2017-03-19] MEDS: Enalaprilat Dihydrate 1.25 MG/ML VIAL SLOW IVP SCH ×2 (00:37→06:20)
[2017-03-19] MEDS: Allopurinol 100 MG TAB PER TUBE SCH (08:52)
[2017-03-19] MEDS: Carvedilol 25 MG TAB PER TUBE SCH ×2 (08:52→16:58)
[2017-03-19] MEDS ORDERED: Apixaban 5 MG TAB PO SCH (09:00)
--- NOTE | 2017-03-19 10:55 | PDOC.PN ---
- Subjective Encounter Start Date: 03/19/17 Encounter Start Time: 08:00 Patient seen and examined. No new complaints. No overnight events doing ok, tolerating tube feeding - Objective Resuscitation Status: Resuscitation Status FULL:Full Resuscitation MAR Reviewed: Yes Vital Signs & Weight: Vital Signs (12 hours) Temp Pulse Resp BP BP Pulse Ox 03/19/17 07:58 97.2 F L 70 21 H 98 03/19/17 07:22 97.2 F L 70 21 H 143/72 H 98 03/19/17 06:20 145/68 H 03/19/17 04:19 97.2 F L 77 24 H 154/76 H 98 03/19/17 00:23 97.6 F 64 24 H 131/64 94 L Weight Admit Weight 143 lb 15.39 oz Weight 161 lb 13.109 oz Most Recent Monitor Data Heart Rate from ECG 92 NIBP 131/113 NIBP BP-Mean 118 Respiration from ECG 25 SpO2 96 I&O: 03/18/17 03/19/17 03/20/17 06:59 06:59 06:59 Intake Total 1215 1368 327 Output Total 1500 2100 150 Balance -285 -732 177 Result Diagrams: 03/17/17 05:28 03/18/17 05:17 EKG Reviewed by me: Yes (nsr) Phys Exam - Physical Examination Constitutional: NAD HEENT: PERRLA, moist MMs, sclera anicteric Neck: no JVD, supple Respiratory: no wheezing, no rales, no rhonchi Cardiovascular: RRR, no significant murmur, no rub Gastrointestinal: soft, non-tender, no distention, positive bowel sounds PEG+ Musculoskeletal: no edema, pulses present left side weakness Lymphatic: no nodes Psychiatric: normal affect Skin: no rash, normal turgor Dx/Plan (1) Acute CVA (cerebrovascular accident) Code(s): I63.9 - CEREBRAL INFARCTION, UNSPECIFIED Status: Acute Comment: acute infarction of right frontal lobe (2) Oropharyngeal dysphagia Code(s): R13.12 - DYSPHAGIA, OROPHARYNGEAL PHASE Status: Acute (3) Acute metabolic encephalopathy Code(s): G93.41 - METABOLIC ENCEPHALOPATHY Status: Acute (4) Acute worsening of stage 3 chronic kidney disease Code(s): N18.3 - CHRONIC KIDNEY DISEASE, STAGE 3 (MODERATE) Status: Acute (5) Hypernatremia Code(s): E87.0 - HYPEROSMOLALITY AND HYPERNATREMIA Status: Acute (6) Elevated troponin Code(s): R74.8 - ABNORMAL LEVELS OF OTHER SERUM ENZYMES Status: Acute (7) Atrial fibrillation Code(s): I48.91 - UNSPECIFIED ATRIAL FIBRILLATION Status: Chronic Qualifiers: Atrial fibrillation type: paroxysmal (8) CKD (chronic kidney disease) stage 3, GFR 30-59 ml/min Code(s): N18.3 - CHRONIC KIDNEY DISEASE, STAGE 3 (MODERATE) Status: Chronic (9) Chronic anticoagulation Code(s): Z79.01 - [facility] (CURRENT) USE OF ANTICOAGULANTS Status: Chronic (10) Dyslipidemia Code(s): E78.5 - HYPERLIPIDEMIA, UNSPECIFIED Status: Chronic (11) GERD (gastroesophageal reflux disease) Code(s): K21.9 - GASTRO-ESOPHAGEAL REFLUX DISEASE WITHOUT ESOPHAGITIS Status: Chronic (12) History of CVA (cerebrovascular accident) Code(s): Z86.73 - PRSNL HX OF TIA (TIA), AND CEREB INFRC W/O RESID DEFICITS Status: Chronic (13) History of cardiomyopathy Code(s): Z86.79 - PERSONAL HISTORY OF OTHER DISEASES OF THE CIRCULATORY SYSTEM Status: Chronic (14) Hypertension Code(s): I10 - ESSENTIAL (PRIMARY) HYPERTENSION Status: Chronic (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 Code(s): [id number] - Status: Chronic (16) NSVT (nonsustained ventricular tachycardia) Code(s): I47.2 - VENTRICULAR TACHYCARDIA Status: Chronic (17) PVD (peripheral vascular disease) Code(s): I73.9 - PERIPHERAL VASCULAR DISEASE, UNSPECIFIED Status: Chronic (18) Chronic combined systolic and diastolic congestive heart failure Code(s): I50.42 - CHRONIC COMBINED SYSTOLIC AND DIASTOLIC HRT FAIL Status: Chronic - Plan cont current plan of care, PT/OT, transition social worker * now will resume elliquis * continue meds via PEG * tube feeding as tolerated * transfer to stroke floor * start discharge planning to rehab vs SNU * medication reviewed as below * symptomatic treatment. Review of Systems - Review of Systems Other: unable to review due to current cognitive status - Medications/Allergies Allergies/Adverse Reactions: Allergies Allergy/AdvReac Type Severity Reaction Status Date / Time No Known Allergies Allergy Verified 03/13/17 22:56 Medications: Current Medications Acetaminophen (Tylenol) 650 mg [place] Q4H PRN PRN Reason: Headache/Fever or Mild Pain Acetaminophen (Tylenol) 650 mg PER TUBE Q4H PRN PRN Reason: Headache/Fever or Mild Pain Last Admin: 03/16/17 20:20 Dose: 650 mg Hydrocodone Bitart/Acetaminophen ([place] 5/325) 1 tab PER TUBE Q4H PRN PRN Reason: Moderate Pain (4-6) Al Hydroxide/Mg Hydroxide (Maalox) 15 ml PER TUBE Q4H PRN PRN Reason: Heartburn or Indigestion Albuterol Sulfate (Proventil Hfa) 1 puff INH Q4HR PRN PRN Reason: SOB &/or Wheezing Allopurinol (Zyloprim) 100 mg PER TUBE DAILY [facility] Last Admin: 03/19/17 08:52 Dose: 100 mg Lipase/Protease/Amylase ([place] [id number]) 1 cap FS .PER PROTOCOL PRN PRN Reason: TUBE OCCLUSION PROTOCOL Artificial Tears (Tears Naturale) 0 drop EA EYE PRN PRN PRN Reason: Dry Eyes Aspirin (Aspirin Chewable) 81 mg PER TUBE DAILY [facility] Last Admin: 03/19/17 08:52 Dose: 81 mg Atorvastatin Calcium (Lipitor) 40 mg PER TUBE HS [facility] Last Admin: 03/18/17 20:03 Dose: 40 mg Bisacodyl (Dulcolax) 10 mg [place] DAILYPRN PRN PRN Reason: Constipation Carvedilol (Coreg) 25 mg PER TUBE BID-[facility] Last Admin: 03/19/17 08:52 Dose: 25 mg Enalaprilat (Vasotec) 1.25 mg SLOW IVP Q6HR [facility] Last Admin: 03/19/17 06:20 Dose: 1.25 mg Famotidine (Pepcid) 20 mg PER TUBE DAILY PRN PRN Reason: Heartburn or Indigestion Guaifenesin (Robitussin Sf) 200 mg PER TUBE Q4H PRN PRN Reason: Cough Hydralazine HCl (Apresoline) 10 mg SLOW IVP Q4H PRN PRN Reason: Systolic BP > 180 Last Admin: 03/18/17 02:37 Dose: 10 mg Labetalol HCl (Normodyne) 20 mg SLOW IVP Q30MIN PRN PRN Reason: TO KEEP SYS BETWEEN 140-160 Last Admin: 03/18/17 01:32 Dose: 20 mg Loperamide HCl (Imodium) 2 mg PER TUBE PRN PRN PRN Reason: Diarrhea/Loose Stools Loratadine (Claritin) 10 mg PER TUBE DAILYPRN PRN PRN Reason: Sinus Symptoms Magnesium Hydroxide (Milk Of Magnesium) 30 ml PER TUBE DAILYPRN PRN PRN Reason: Constipation Last Admin: 03/16/17 20:20 Dose: 30 ml Mineral Oil/White Petrolatum (Eucerin Cream) 0 gm TOP BIDPRN PRN PRN Reason: Dry Skin Nitroglycerin (Nitrostat) 0.4 mg SL Q5MIN PRN PRN Reason: Chest Pain Ondansetron HCl (Zofran) 4 mg IVP Q6H PRN PRN Reason: Nausea/Vomiting Ondansetron HCl (Zofran Odt) 4 mg PER TUBE Q6H PRN PRN Reason: Nausea/Vomiting Phenol (Chloraseptic [place] 180 Ml Bot) 0 ml PO PRN PRN PRN Reason: Sore Throat Senna (Senokot) 2 tab PER TUBE HSPRN PRN PRN Reason: Constipation Sodium Bicarbonate (Bicarbonate, Sodium) 650 mg PER TUBE .PER PROTOCOL PRN PRN Reason: ENTERAL TUBE OCCLUSION Sodium Chloride ([place] Nasal [place] 0.65%) 0 ml EA NARE QIDPRN PRN PRN Reason: Nasal Congestion
--- NOTE | 2017-03-19 12:41 | PRG ---
DATE OF SERVICE: 03/19/2017 SERVICE: Pulmonary Medicine. INTERVAL HISTORY: The patient is doing fine from a cardiovascular and respiratory standpoint. He is breathing comfortably. His abdomen is a little bit distended and he has got an abdominal binder on. He got his PEG tube yesterday. They have been using it for gravity feeds. Otherwise, there has be en no interval change to his condition. PHYSICAL EXAMINATION: VITAL SIGNS: Afebrile, pulse 81, blood pressure 125/56, respirations 19, saturation 100% on 1.5 lite rs nasal cannula. GENERAL: Patient is awake, alert, no apparent distress. LUNGS: Decent air entry. Rhonchi are present, but no wheezing or crackles appreciated. HEART: Normal rate, regular. ABDOMEN: Soft, nontender, nondistended. Bowel sounds were soft. Distended. No rebound or guarding is evident. Bowel sounds are hypoactive. GENITOURINARY: Bucio catheter in place. NEUROLOGIC: Grossly nonfocal. ASSESSMENT: 1. Cerebrovascular accident. 2. Debility, severe. 3. Hyponatremia, slowly improving. 4. Dehydration, resolved. DISCUSSION AND PLAN: We will continue our free water. I will repeat laboratories tomorrow morning. Bucio catheter will be discontinued today. From a purely respiratory perspective, patient is stable for transition out of the hospital. I will continue to follow while he remains in this location.
[2017-03-19] MEDS: Atorvastatin Calcium 20 MG TAB PER TUBE SCH (20:25)
[2017-03-19] MEDS: Apixaban 5 MG TAB PER TUBE SCH (20:25)
[2017-03-20] MEDS: Apixaban 5 MG TAB PER TUBE SCH ×2 (09:05→20:00)
[2017-03-20] MEDS: Acetaminophen 325 MG TAB PER TUBE PRN (09:05)
[2017-03-20] MEDS: Lisinopril 5 MG TAB PER TUBE SCH (09:05)
[2017-03-20] MEDS: Allopurinol 100 MG TAB PER TUBE SCH (09:06)
[2017-03-20] MEDS: Carvedilol 25 MG TAB PER TUBE SCH ×2 (09:06→16:27)
--- NOTE | 2017-03-20 10:42 | PDOC.PN ---
- Subjective Encounter Start Date: 03/20/17 Encounter Start Time: 09:30 Patient seen and examined. No new complaints. No overnight events - Objective Resuscitation Status: Resuscitation Status FULL:Full Resuscitation MAR Reviewed: Yes Vital Signs & Weight: Vital Signs (12 hours) Temp Pulse Pulse Pulse Resp BP BP 03/20/17 09:12 69 67 148/70 H 03/20/17 09:05 81 141/94 H 03/20/17 08:00 98 F 81 20 03/20/17 04:00 76 20 03/20/17 00:00 98.4 F 64 22 H BP BP Pulse Ox 03/20/17 09:12 136/78 03/20/17 09:05 03/20/17 08:00 141/94 H 95 03/20/17 04:00 156/82 H 92 L 03/20/17 00:00 154/74 H 97 Weight Admit Weight 143 lb 15.39 oz Weight 144 lb 14.4 oz Most Recent Monitor Data Heart Rate from ECG 92 NIBP 131/113 NIBP BP-Mean 118 Respiration from ECG 25 SpO2 96 I&O: 03/19/17 03/20/17 03/21/17 06:59 06:59 06:59 Intake Total 1368 3029 330 Output Total 2100 151 Balance -732 2878 330 Result Diagrams: 03/17/17 05:28 03/18/17 05:17 EKG Reviewed by me: Yes Phys Exam - Physical Examination Constitutional: NAD HEENT: PERRLA, moist MMs, sclera anicteric Neck: no JVD, supple Respiratory: no wheezing, no rales, no rhonchi Cardiovascular: RRR, no significant murmur, no rub Gastrointestinal: soft, non-tender, no distention, positive bowel sounds PEG+ Musculoskeletal: no edema, pulses present left side weakness Psychiatric: normal affect Skin: no rash, normal turgor Dx/Plan (1) Acute CVA (cerebrovascular accident) Code(s): I63.9 - CEREBRAL INFARCTION, UNSPECIFIED Status: Acute Comment: acute infarction of right frontal lobe (2) Oropharyngeal dysphagia Code(s): R13.12 - DYSPHAGIA, OROPHARYNGEAL PHASE Status: Acute (3) Acute metabolic encephalopathy Code(s): G93.41 - METABOLIC ENCEPHALOPATHY Status: Acute (4) Acute worsening of stage 3 chronic kidney disease Code(s): N18.3 - CHRONIC KIDNEY DISEASE, STAGE 3 (MODERATE) Status: Acute (5) Hypernatremia Code(s): E87.0 - HYPEROSMOLALITY AND HYPERNATREMIA Status: Acute (6) Elevated troponin Code(s): R74.8 - ABNORMAL LEVELS OF OTHER SERUM ENZYMES Status: Acute (7) Atrial fibrillation Code(s): I48.91 - UNSPECIFIED ATRIAL FIBRILLATION Status: Chronic Qualifiers: Atrial fibrillation type: paroxysmal (8) CKD (chronic kidney disease) stage 3, GFR 30-59 ml/min Code(s): N18.3 - CHRONIC KIDNEY DISEASE, STAGE 3 (MODERATE) Status: Chronic (9) Chronic anticoagulation Code(s): Z79.01 - USP (CURRENT) USE OF ANTICOAGULANTS Status: Chronic (10) Dyslipidemia Code(s): E78.5 - HYPERLIPIDEMIA, UNSPECIFIED Status: Chronic (11) GERD (gastroesophageal reflux disease) Code(s): K21.9 - GASTRO-ESOPHAGEAL REFLUX DISEASE WITHOUT ESOPHAGITIS Status: Chronic (12) History of CVA (cerebrovascular accident) Code(s): Z86.73 - PRSNL HX OF TIA (TIA), AND CEREB INFRC W/O RESID DEFICITS Status: Chronic (13) History of cardiomyopathy Code(s): Z86.79 - PERSONAL HISTORY OF OTHER DISEASES OF THE CIRCULATORY SYSTEM Status: Chronic (14) Hypertension Code(s): I10 - ESSENTIAL (PRIMARY) HYPERTENSION Status: Chronic (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 Code(s): [id number] - Status: Chronic (16) NSVT (nonsustained ventricular tachycardia) Code(s): I47.2 - VENTRICULAR TACHYCARDIA Status: Chronic (17) PVD (peripheral vascular disease) Code(s): I73.9 - PERIPHERAL VASCULAR DISEASE, UNSPECIFIED Status: Chronic (18) Chronic combined systolic and diastolic congestive heart failure Code(s): I50.42 - CHRONIC COMBINED SYSTOLIC AND DIASTOLIC HRT FAIL Status: Chronic - Plan cont current plan of care, PT/OT, public health social worker, speech therapy * continue tube feeding * medication reviewed as below * symptomatic treatment * await placement * stroke team. Review of Systems - Review of Systems Other: unable to review due to his cognitive status - Medications/Allergies Allergies/Adverse Reactions: Allergies Allergy/AdvReac Type Severity Reaction Status Date / Time No Known Allergies Allergy Verified 03/13/17 22:56 Medications: Current Medications Acetaminophen (Tylenol) 650 mg [place] Q4H PRN PRN Reason: Headache/Fever or Mild Pain Acetaminophen (Tylenol) 650 mg PER TUBE Q4H PRN PRN Reason: Headache/Fever or Mild Pain Last Admin: 03/20/17 09:05 Dose: 650 mg Hydrocodone Bitart/Acetaminophen ([place] 5/325) 1 tab PER TUBE Q4H PRN PRN Reason: Moderate Pain (4-6) Al Hydroxide/Mg Hydroxide (Maalox) 15 ml PER TUBE Q4H PRN PRN Reason: Heartburn or Indigestion Albuterol Sulfate (Proventil Hfa) 1 puff INH Q4HR PRN PRN Reason: SOB &/or Wheezing Allopurinol (Zyloprim) 100 mg PER TUBE DAILY [facility] Last Admin: 03/20/17 09:06 Dose: 100 mg Lipase/Protease/[place]ylase ([place] [id number]) 1 cap FS .PER PROTOCOL PRN PRN Reason: TUBE OCCLUSION PROTOCOL Apixaban (Eliquis) 2.5 mg PER TUBE BID [facility] Last Admin: 03/20/17 09:05 Dose: 2.5 mg Artificial Tears (Tears Naturale) 0 drop EA EYE PRN PRN PRN Reason: Dry Eyes Aspirin (Aspirin Chewable) 81 mg PER TUBE DAILY [facility] Last Admin: 03/20/17 09:06 Dose: 81 mg Atorvastatin Calcium (Lipitor) 40 mg PER TUBE [facility] Last Admin: 03/19/17 20:25 Dose: 40 mg Bisacodyl (Dulcolax) 10 mg [place] DAILYPRN PRN PRN Reason: Constipation Carvedilol (Coreg) 25 mg PER TUBE BID-[facility] Last Admin: 03/20/17 09:06 Dose: 25 mg Famotidine (Pepcid) 20 mg PER TUBE DAILY PRN PRN Reason: Heartburn or Indigestion Guaifenesin (Robitussin Sf) 200 mg PER TUBE Q4H PRN PRN Reason: Cough Hydralazine HCl (Apresoline) 10 mg SLOW IVP Q4H PRN PRN Reason: Systolic BP > 180 Last Admin: 03/18/17 02:37 Dose: 10 mg Labetalol HCl (Normodyne) 20 mg SLOW IVP Q30MIN PRN PRN Reason: TO KEEP SYS BETWEEN 140-160 Last Admin: 03/18/17 01:32 Dose: 20 mg Lisinopril (Zestril) 5 mg PER TUBE DAILY [facility] Last Admin: 03/20/17 09:05 Dose: 5 mg Loperamide HCl (Imodium) 2 mg PER TUBE PRN PRN PRN Reason: Diarrhea/Loose Stools Loratadine (Claritin) 10 mg PER TUBE DAILYPRN PRN PRN Reason: Sinus Symptoms Magnesium Hydroxide (Milk Of Magnesium) 30 ml PER TUBE DAILYPRN PRN PRN Reason: Constipation Last Admin: 03/16/17 20:20 Dose: 30 ml Mineral Oil/White Petrolatum (Eucerin Cream) 0 gm TOP BIDPRN PRN PRN Reason: Dry Skin Nitroglycerin (Nitrostat) 0.4 mg SL Q5MIN PRN PRN Reason: Chest Pain Ondansetron HCl (Zofran) 4 mg IVP Q6H PRN PRN Reason: Nausea/Vomiting Ondansetron HCl (Zofran Odt) 4 mg PER TUBE Q6H PRN PRN Reason: Nausea/Vomiting Phenol (Chloraseptic [place] 180 Ml Bot) 0 ml PO PRN PRN PRN Reason: Sore Throat Senna (Senokot) 2 tab PER TUBE HSPRN PRN PRN Reason: Constipation Sodium Bicarbonate (Bicarbonate, Sodium) 650 mg PER TUBE .PER PROTOCOL PRN PRN Reason: ENTERAL TUBE OCCLUSION Sodium Chloride ([place] Nasal [place] 0.65%) 0 ml EA NARE QIDPRN PRN PRN Reason: Nasal Congestion
--- NOTE | 2017-03-20 16:41 | PRG ---
DATE OF SERVICE: 03/20/2017 SERVICE: Pulmonary Medicine. INTERVAL HISTORY: The patient is doing fine from a respiratory standpoint. He cannot provide me any additional elements of the history. There has been no interval changes to his condition, however. PHYSICAL EXAMINATION: VITAL SIGNS: Afebrile, pulse 73, blood pressure 129/69, respirations 18, saturation 95% on 2 liters nasal cannula. GENERAL: The patient is awake and alert, appears in no apparent distress. HEENT: Normocephalic, atraumatic. LUNGS: Good air entry. There are some rhonchi present. He cannot cough. No prolonged expiratory p hase or wheezing. No wheezing. HEART: Normal rate, regular. ABDOMEN: Soft, nontender, nondistended. Bowel sounds positive. MUSCULOSKELETAL: No cyanosis or clubbing. No pitting in the bilateral lower extremities. NEUROLOGIC: Grossly nonfocal. ASSESSMENT: 1. Cerebrovascular accident. 2. Debility, severe. 3. Hypernatremia, slowly improving. 4. Dehydration, resolved. DISCUSSION AND PLAN: Repeat laboratories tomorrow morning including magnesium, phosphorus, and basic metabolic profile. We will also do a CBC. Pulmonary Critical Care will continue to follow while th e patient remains in house, but from my perspective, he is stable for transition out of the hospital. He will need to pursue aggressive physical therapy and occupational therapy. If he ever gets intub ated, tracheostomy will need to be performed if the patient's family intends to be aggressive with hi s care moving forward.
[2017-03-20] MEDS: Atorvastatin Calcium 20 MG TAB PER TUBE SCH (20:00)
[2017-03-21 04:43] LABS: #Eosinphils 0.2 thou/uL (0.0-0.7); #Lymphocytes 1.5 thou/uL (1.20-3.40); #Neutrophils 5.1 thou/uL (1.40-6.50); %Basophils 0.4 % (0.0-1.0); %Eosinophils 3.1 % (0.0-10.0); %Lymphocytes 18.6 % (21.0-51.0); %Monocytes 12.4 % (0.0-10.0); %Neutrophils 65.5 % (42.0-75.0); Hemoglobin 14.1 g/dL (14.0-18.0); Mean Corpuscular HGB CONC 31.3 g/dL (32.0-36.0); Mean Corpuscular Volume 92.5 fl (80.0-94.0); Mean Platelet Volume 9.6 fL (7.4-10.4); Platelet Count 259 thou/uL (130-400); RBC Distribution Width 13.3 % (11.5-14.5); Red Blood Cell (RBC) Count 4.86 mill/uL (4.70-6.10); White Blood Cell (WBC) Count 7.8 thou/uL (4.8-10.8)
[2017-03-21 04:55] LABS: Anion Gap 10 mmol/L (10-20); BUN (Urea Nitrogen) 33 mg/dL (8.4-25.7); Calc. Creatinine Clearance 45 mL/min (70-130); Calcium 9.3 mg/dL (7.8-10.44); Carbon Dioxide 27 mmol/L (23-31); Chloride 118 mmol/L (98-107); Estimated GFR-MDRD 66; Glucose 92 mg/dL (83-110); Magnesium 2.4 mg/dL (1.6-2.6); Phosphorus 2.7 mg/dL (2.3-4.7); Sodium 151 mmol/L (136-145)
--- NOTE | 2017-03-21 08:58 | PDOC.PN ---
- Subjective Encounter Start Date: 03/21/17 Encounter Start Time: 07:00 overall condition remained same, Patient seen and examined. No overnight events today his sodium is high - Objective Resuscitation Status: Resuscitation Status FULL:Full Resuscitation MAR Reviewed: Yes Vital Signs & Weight: Vital Signs (12 hours) Temp Pulse Resp BP Pulse Ox 03/21/17 03:37 98.3 F 71 18 138/83 99 03/21/17 01:05 99 03/21/17 00:00 98.5 F 72 24 H 174/82 H 99 Weight Admit Weight 143 lb 15.39 oz Weight 145 lb 12.8 oz Most Recent Monitor Data Heart Rate from ECG 92 NIBP 131/113 NIBP BP-Mean 118 Respiration from ECG 25 SpO2 96 I&O: 03/20/17 03/21/17 03/22/17 06:59 06:59 06:59 Intake Total 3029 2790 Output Total 151 Balance 2878 2790 Result Diagrams: 03/21/17 04:24 03/21/17 04:24 EKG Reviewed by me: Yes (nsr) Phys Exam - Physical Examination Constitutional: NAD HEENT: PERRLA, sclera anicteric dry MM Neck: no JVD, supple Respiratory: no wheezing, no rales, no rhonchi Cardiovascular: RRR, no significant murmur, no rub Gastrointestinal: soft, non-tender, no distention, positive bowel sounds PEG+ Musculoskeletal: no edema, pulses present left side weakness Psychiatric: normal affect Skin: no rash, normal turgor Dx/Plan (1) Acute CVA (cerebrovascular accident) Code(s): I63.9 - CEREBRAL INFARCTION, UNSPECIFIED Status: Acute Comment: acute infarction of right frontal lobe (2) Oropharyngeal dysphagia Code(s): R13.12 - DYSPHAGIA, OROPHARYNGEAL PHASE Status: Acute (3) Acute metabolic encephalopathy Code(s): G93.41 - METABOLIC ENCEPHALOPATHY Status: Acute (4) Acute worsening of stage 3 chronic kidney disease Code(s): N18.3 - CHRONIC KIDNEY DISEASE, STAGE 3 (MODERATE) Status: Acute (5) Hypernatremia Code(s): E87.0 - HYPEROSMOLALITY AND HYPERNATREMIA Status: Acute (6) Elevated troponin Code(s): R74.8 - ABNORMAL LEVELS OF OTHER SERUM ENZYMES Status: Acute (7) Atrial fibrillation Code(s): I48.91 - UNSPECIFIED ATRIAL FIBRILLATION Status: Chronic Qualifiers: Atrial fibrillation type: paroxysmal (8) CKD (chronic kidney disease) stage 3, GFR 30-59 ml/min Code(s): N18.3 - CHRONIC KIDNEY DISEASE, STAGE 3 (MODERATE) Status: Chronic (9) Chronic anticoagulation Code(s): Z79.01 - USP (CURRENT) USE OF ANTICOAGULANTS Status: Chronic (10) Dyslipidemia Code(s): E78.5 - HYPERLIPIDEMIA, UNSPECIFIED Status: Chronic (11) GERD (gastroesophageal reflux disease) Code(s): K21.9 - GASTRO-ESOPHAGEAL REFLUX DISEASE WITHOUT ESOPHAGITIS Status: Chronic (12) History of CVA (cerebrovascular accident) Code(s): Z86.73 - PRSNL HX OF TIA (TIA), AND CEREB INFRC W/O RESID DEFICITS Status: Chronic (13) History of cardiomyopathy Code(s): Z86.79 - PERSONAL HISTORY OF OTHER DISEASES OF THE CIRCULATORY SYSTEM Status: Chronic (14) Hypertension Code(s): I10 - ESSENTIAL (PRIMARY) HYPERTENSION Status: Chronic (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 Code(s): [id number] - Status: Chronic (16) NSVT (nonsustained ventricular tachycardia) Code(s): I47.2 - VENTRICULAR TACHYCARDIA Status: Chronic (17) PVD (peripheral vascular disease) Code(s): I73.9 - PERIPHERAL VASCULAR DISEASE, UNSPECIFIED Status: Chronic (18) Chronic combined systolic and diastolic congestive heart failure Code(s): I50.42 - CHRONIC COMBINED SYSTOLIC AND DIASTOLIC HRT FAIL Status: Chronic - Plan cont current plan of care, PT/OT, social work specialist, DVT proph w/lovenox * advised nurse to double free water via PEG * pt is at risk for aspiration * currently stable vitals jasmine * await placement * medication reviewed as below * symptomatic treatment. Review of Systems - Review of Systems Other: unable to review due to his cognitive status - Medications/Allergies Allergies/Adverse Reactions: Allergies Allergy/AdvReac Type Severity Reaction Status Date / Time No Known Allergies Allergy Verified 03/13/17 22:56 Medications: Current Medications Acetaminophen (Tylenol) 650 mg [place] Q4H PRN PRN Reason: Headache/Fever or Mild Pain Acetaminophen (Tylenol) 650 mg PER TUBE Q4H PRN PRN Reason: Headache/Fever or Mild Pain Last Admin: 03/20/17 09:05 Dose: 650 mg Hydrocodone Bitart/Acetaminophen ([place] 5/325) 1 tab PER TUBE Q4H PRN PRN Reason: Moderate Pain (4-6) Al Hydroxide/Mg Hydroxide (Maalox) 15 ml PER TUBE Q4H PRN PRN Reason: Heartburn or Indigestion Albuterol Sulfate (Proventil Hfa) 1 puff INH Q4HR PRN PRN Reason: SOB &/or Wheezing Allopurinol (Zyloprim) 100 mg PER TUBE DAILY [facility] Last Admin: 03/20/17 09:06 Dose: 100 mg Lipase/Protease/Amylase ([place] [id number]) 1 cap FS .PER PROTOCOL PRN PRN Reason: TUBE OCCLUSION PROTOCOL Apixaban (Eliquis) 2.5 mg PER TUBE BID [facility] Last Admin: 03/20/17 20:00 Dose: 2.5 mg Artificial Tears (Tears Naturale) 0 drop EA EYE PRN PRN PRN Reason: Dry Eyes Aspirin (Aspirin Chewable) 81 mg PER TUBE DAILY [facility] Last Admin: 03/20/17 09:06 Dose: 81 mg Atorvastatin Calcium (Lipitor) 40 mg PER TUBE [facility] Last Admin: 03/20/17 20:00 Dose: 40 mg Bisacodyl (Dulcolax) 10 mg [place] DAILYPRN PRN PRN Reason: Constipation Carvedilol (Coreg) 25 mg PER TUBE [facility]ID[facility] Last Admin: 03/20/17 16:27 Dose: 25 mg Famotidine (Pepcid) 20 mg PER TUBE DAILY PRN PRN Reason: Heartburn or Indigestion Guaifenesin (Robitussin Sf) 200 mg PER TUBE Q4H PRN PRN Reason: Cough Hydralazine HCl (Apresoline) 10 mg SLOW IVP Q4H PRN PRN Reason: Systolic BP > 180 Last Admin: 03/18/17 02:37 Dose: 10 mg Labetalol HCl (Normodyne) 20 mg SLOW IVP Q30MIN PRN PRN Reason: TO KEEP SYS BETWEEN 140-160 Last Admin: 03/18/17 01:32 Dose: 20 mg Lisinopril (Zestril) 5 mg PER TUBE DAILY [facility] Last Admin: 03/20/17 09:05 Dose: 5 mg Loperamide HCl (Imodium) 2 mg PER TUBE PRN PRN PRN Reason: Diarrhea/Loose Stools Loratadine (Claritin) 10 mg PER TUBE DAILYPRN PRN PRN Reason: Sinus Symptoms Magnesium Hydroxide (Milk Of Magnesium) 30 ml PER TUBE DAILYPRN PRN PRN Reason: Constipation Last Admin: 03/16/17 20:20 Dose: 30 ml Mineral Oil/White Petrolatum (Eucerin Cream) 0 gm TOP BIDPRN PRN PRN Reason: Dry Skin Nitroglycerin (Nitrostat) 0.4 mg SL Q5MIN PRN PRN Reason: Chest Pain Ondansetron HCl (Zofran) 4 mg IVP Q6H PRN PRN Reason: Nausea/Vomiting Ondansetron HCl (Zofran Odt) 4 mg PER TUBE Q6H PRN PRN Reason: Nausea/Vomiting Phenol (Chloraseptic [place] 180 Ml Bot) 0 ml PO PRN PRN PRN Reason: Sore Throat Senna (Senokot) 2 tab PER TUBE HSPRN PRN PRN Reason: Constipation Sodium Bicarbonate (Bicarbonate, Sodium) 650 mg PER TUBE .PER PROTOCOL PRN PRN Reason: ENTERAL TUBE OCCLUSION Sodium Chloride ([place] Nasal [place] 0.65%) 0 ml EA NARE QIDPRN PRN PRN Reason: Nasal Congestion
--- NOTE | 2017-03-21 09:22 | PRG ---
DATE OF SERVICE: 03/21/2017 Mr. Hernandez remains aphasic which is his baseline situation. The patient has had a PEG tube placed. The patient looks comfortable. REVIEW OF SYSTEMS: Not obtainable. He is aphasic. PHYSICAL EXAMINATION: VITAL SIGNS: Blood pressure 138/83, pulse 70, it is regular. LUNGS: Clear. CARDIAC: Normal S1, normal S2. He has occasional episodes of nonsustained ventricular tachycardia. ASSESSMENT: 1. Previous extensive strokes. 2. Intracavitary thrombus has been previously identified. 3. Renal function is improved with a creatinine now in the normal range of 1.27, normal for age. PLAN: 1. We will increase Eliquis dose. 2. Continue other medicines unchanged. 3. We will sign off at this point. Please reconsult if needed.
[2017-03-21] MEDS: Lisinopril 5 MG TAB PER TUBE SCH (10:16)
[2017-03-21] MEDS: Allopurinol 100 MG TAB PER TUBE SCH (10:16)
[2017-03-21] MEDS: Carvedilol 25 MG TAB PER TUBE SCH ×2 (10:16→16:51)
[2017-03-21] MEDS: Apixaban 5 MG TAB PER TUBE SCH (10:18)
[2017-03-21 11:51] VITALS: BMI 22.8
[2017-03-21] MEDS ORDERED: Dextrose 5% in Water 1,000 ML IV SCH (14:30)
--- NOTE | 2017-03-21 14:49 | PRG ---
DATE OF SERVICE: 03/21/2017 SERVICE: Pulmonary Medicine. INTERVAL HISTORY: The patient is doing fine from a cardiovascular and respiratory standpoint. He is breathing comfortably. He got put on 1 liter nasal cannula. Otherwise, there has been no interval changes to his condition. He cannot provide additional elements of the history. PHYSICAL EXAMINATION: VITAL SIGNS: Afebrile, pulse 88, blood pressure 137/87, respirations 18, saturation 97% on 2 liters nasal cannula. GENERAL: The patient is awake, alert, in no apparent distress. LUNGS: Decent air entry. There is no prolonged expiratory phase. Rhonchi are now present in the ri ght base. No prolonged expiratory phase or wheezing is appreciated. HEART: Normal rate, regular. ABDOMEN: Soft, nontender, nondistended. Bowel sounds positive. MUSCULOSKELETAL: No cyanosis or clubbing. No pitting in the bilateral lower extremities. LABORATORY DATA: WBC 7.8, hemoglobin 14.1, platelets 259,000. Sodium 151. Basic metabolic profile is otherwise unremarkable. Magnesium and phosphorus fall within normal limits. ASSESSMENT: 1. Cerebrovascular accident. 2. Debility, severe. 3. Hypernatremia, getting worse. 4. Dehydration, resolved. DISCUSSION AND PLAN: The patient's sodium is going up because his free water was modified when he we nt to bolus feeds. As such, we will put him on D5 water at 75 an hour, but this will need to be beth fied once his sodium returns into the normal range. Whenever he requires to maintain a normal sodium , needs to be converted into free water flushes. Pulmonary Critical Care will continue to follow int ermittently during this hospital stay.
[2017-03-21 15:49] VITALS: BP 142/80; TEMP 97.9
--- NOTE | 2017-03-21 15:59 | DIS ---
DATE OF ADMISSION: 03/13/2017 DATE OF DISCHARGE: 03/21/2017 PRIMARY CARE PHYSICIAN: Pawel Gates M.D. DISCHARGE DISPOSITION: [facility] in [place]. PRIMARY DISCHARGE DIAGNOSES: Acute right frontal lobe cerebrovascular accident, acute metabolic ence phalopathy, acute on chronic kidney failure stage 3, demand ischemia of myocardium, hypernatremia, or opharyngeal dysphagia status post PEG tube placement. SECONDARY DISCHARGE DIAGNOSES: Peripheral vascular disease, nonsustained ventricular tachycardia, le ft ventricular apical thrombus, hypertension, history of cerebrovascular accident in the past, histor y of cardiomyopathy, gastroesophageal reflux disease, dyslipidemia, chronic kidney disease stage 3, c hronic combined systolic and diastolic heart failure, chronic anticoagulation, paroxysmal atrial fibr illation. PRIMARY PROCEDURE/OPERATION: PEG tube placement. RADIOLOGICAL INVESTIGATION: Chest x-ray showed no acute cardiopulmonary process. CT brain on admiss ion showed acute infarction in the right frontal lobe. Carotid Doppler was negative for any stenosis . Abdomen x-ray. SIGNIFICANT LABORATORY DATA: WBC 7.8, hemoglobin 14.1, platelets 259. INR 1.2, sodium 151, potassiu m 4.0, BUN 33, creatinine 1.27, calcium 9.3, phosphorus 2.7, magnesium 2.4. Urinalysis unremarkable. Blood culture negative. Urine culture negative. Influenza negative. DISCHARGE MEDICATIONS: Medication via PEG tube, ProAir HFA 1 puff inhalation q.4 hourly p.r.n., allo purinol 100 mg per tube daily, Eliquis 5 mg per tube b.i.d., aspirin 81 mg per tube daily, Lipitor 40 mg per tube daily, Coreg 25 mg per tube b.i.d., lisinopril 5 mg per tube daily, nitroglycerin 0.4 mg sublingual p.r.n., Protonix 40 mg per tube daily. CONTRAINDICATIONS: None. CODE STATUS: FULL CODE. INPATIENT CONSULTANTS: Neurology, Dr. Adina Howe was following while in hospital. Cardiology, Dr. Aminata wong was following while in the hospital. Pulmonology, Dr. Braswell was following while in hospital, and GI, Dr. Luo did a PEG tube placement. TEST RESULTS PENDING ON DISCHARGE: None. ALLERGIES: No known drug allergies. DISCHARGE PLAN: Post hospital, the patient is discharged to [facility] in [place] for mo re PT, OT, and speech therapy. HOSPITAL COURSE: A 76-year-old male with above-mentioned medical problems, who was admitted by Dr. Natty Mathias. The patient was having a dense left-sided weakness. The patient was found with rig ht frontal lobe CVA. He was completely encephalopathic on arrival to the emergency room. He require d ICU admission. He was at high risk for aspiration. He was requiring frequent suctioning in the IC U. This patient was not safe for any kind of p.o. intake. We started with Dobhoff tube and subseque ntly initiated PEG tube placement and tube feeding was started. The patient had acute on chronic kid patrick failure that required IV fluid and his kidney failure improved to normal. He had abnormal electr olytes with hypernatremia and hyperchloremia, likely due to free water deficit and that is why we are giving him free water through the PEG tube. Before PEG tube placement, we have to hold Eliquis therapy for a couple of days and then we resumed E liquis therapy after PEG tube placement. While in hospital, he is doing relatively well, but he has still dense weakness on the left side and he still has oral secretions as well as he is at risk for a spiration, but Pulmonology cleared him stable for discharge. This patient was initially in CCU and then we moved him to [facility] [place] and subsequently we transferred him t o the stroke floor. The patient's family members requested skilled rehabilitation or group home home placement nearby the sister lives and with help of case management assistant, we arranged rehab at [place]. The patient is hemodynamically stable. He will continue above-mentioned medication via PEG tube. He will have bolus tube feeding. He will need oral care, supportive care, PT, OT and frequent changin g position to prevent any bedsores. Prognosis is guarded condition and stable. The patient seen and examined at bedside today earlier. Please see my progress note from today for f urther details. Total time spent on discharge more than 30 minutes.
[2017-03-21] MEDS ORDERED: Apixaban 5 MG TAB PER TUBE SCH (21:00)
== END 2017-03-21 20:15 | DRG 64 ==
LOC: ERS 15:47 → CCU 16:40 → IMCU/EMU 03-17 08:04 → 2SE 03-19 14:07
PROVIDERS: ADMIT Internal Medicine; ATTEND Internal Medicine
PROC: 0DH63UZ Insertion of Feeding Device into Stomach, Percutaneous Approach (ICD-10-PCS; principal; 2017-03-18)
DX: I63.9 Cerebral infarction, unspecified (principal); G93.41 Metabolic encephalopathy; I21.A1 Myocardial infarction type 2; I47.2 Ventricular tachycardia; I50.43 Acute on chronic combined systolic (congestive) and diastolic (congestive) heart failure; N17.9 Acute kidney failure, unspecified; R13.12 Dysphagia, oropharyngeal phase; N18.3 Chronic kidney disease, stage 3 (moderate); E87.0 Hyperosmolality and hypernatremia; G81.91 Hemiplegia, unspecified affecting right dominant side; G81.94 Hemiplegia, unspecified affecting left nondominant side; I13.0 Hypertensive heart and chronic kidney disease with heart failure and stage 1 through stage 4 chronic kidney disease, or unspecified chronic kidney disease; E87.1 Hypo-osmolality and hyponatremia; I48.0 Paroxysmal atrial fibrillation; I48.2 Chronic atrial fibrillation; R47.01 Aphasia; R74.8 Abnormal levels of other serum enzymes; Z79.01 Long term (current) use of anticoagulants; E78.5 Hyperlipidemia, unspecified; K21.9 Gastro-esophageal reflux disease without esophagitis; Z86.73 Personal history of transient ischemic attack (TIA), and cerebral infarction without residual deficits; Z86.79 Personal history of other diseases of the circulatory system; I73.9 Peripheral vascular disease, unspecified; Z95.810 Presence of automatic (implantable) cardiac defibrillator; I25.2 Old myocardial infarction; E86.0 Dehydration
CPT/HCPCS: 36415; 51701; 70470; 71045; 74018; 80048; 80053; 80061; 81003; 81015; 82553; 83605; 83735; 83880; 84100; 84484; 85025; 85610; 87040; 87077; 87086; 87149; 87186; 93005; 93880; 96365; 96368; 96375; G8978-GP-CN; G8979-GP-CM; G8987-GO-CM; G8987-GO-CN; G8988-GO-CK; G8988-GO-CL; G8996-GN-CN; G8997-GN-CM; G8997-GN-CN; J0360; J1940; J2001; J2543; J2704; J3010; J3370; J7050